=== PATIENT | female | born 1970 | race Caucasian/White ===

== ENCOUNTER 2024-02-19 15:40 | Emergency (ER) | payer MEDICAID, SELFPAY ==
--- NOTE | ~2024-02-19 | XR_ITS ---
EXAMINATION: XR CHEST CLINICAL INFORMATION: Pain COMPARISON: None available. TECHNIQUE: Frontal view of the chest was obtained. FINDINGS: No significant abnormality is noted involving the heart, lungs, mediastinum, bony thorax or soft tissues. Degenerative changes of the thoracic spine. Soft tissue calcification adjacent to the left humeral greater tuberosity. XR/XR chest 1V IMPRESSION: No evidence for acute disease in the chest.
--- NOTE | ~2024-02-19 | CT_ITS ---
EXAMINATION: CT ABDOMEN AND PELVIS WITH CONTRAST CLINICAL INFORMATION: Pain. COMPARISON: None available. TECHNIQUE: Multidetector volumetric images were obtained from the superior aspect of the liver through the pubic symphysis following administration 85 mL of Omnipaque 350 intravenous contrast. Sagittal and coronal reformatted images were obtained on the technologist's workstation. Oral contrast: No This CT examination was performed using dose optimization techniques as appropriate, variously including the following: *Automated exposure control *Adjustment of mA and/or kV according to patient size (this includes techniques or standardized protocols for targeted exams where dose is matched to indication/reason for exam; i.e. extremities or head) *Use of iterative reconstruction technique DLP: 1220 mGy-cm FINDINGS: LUNG BASES: The visualized lung bases are unremarkable. LIVER, GALLBLADDER, AND BILIARY TREE: The liver is normal in size, shape, and attenuation. No focal hepatic lesion or biliary ductal dilatation is present. The gallbladder is unremarkable with no evidence of radiopaque gallstones, gallbladder wall thickening, or obvious pericholecystic inflammatory changes. PANCREAS: Unremarkable. SPLEEN: Unremarkable. ADRENAL GLANDS: Unremarkable. KIDNEYS AND URETERS: The kidneys are normal in size, shape, and attenuation. No hydronephrosis, hydroureter, or calculi seen. No perinephric stranding. BLADDER: Unremarkable. GASTROINTESTINAL TRACT: The small and large bowel are unremarkable. The appendix is unremarkable. ABDOMINAL WALL: No significant hernia is appreciated. LYMPH NODES: Normal. VASCULAR: Unremarkable. PELVIC VISCERA: Unremarkable. OSSEOUS STRUCTURES: No acute osseous abnormality. Multilevel degenerative spondylosis spine. CT/CT abdomen pelvis w IV con IMPRESSION: No acute abnormality CT scan abdomen pelvis. Fleischner guidelines were followed.
[2024-02-19 16:24] VITALS: BP 129/84; BP 98/62; PULSE 100; PULSE 103; RESP 18; TEMP 36.5; O2SAT 100; BMI 30.1
--- NOTE | 2024-02-19 16:37 | ECG_ITS ---
Test Reason : PAIN Blood Pressure : / mmHG Vent. Rate : 103 BPM Atrial Rate : 103 BPM P-R Int : 164 ms QRS Dur : 066 ms QT Int : 326 ms P-R-T Axes : 049 -17 027 degrees QTc Int : 427 ms Sinus tachycardia with occasional , and consecutive Premature ventricular complexes Inferior infarct , age undetermined Abnormal ECG No previous ECGs available Referred By: Rock Iraheta Electronically Signed By:PACO MONTEIRO MD
[2024-02-19] MEDS: 0.9 % Sodium Chloride 1,000 ML 999 ML IV (16:45)
[2024-02-19] MEDS: ondansetron HCL 4 MG/2 ML VIAL IVPUSH (16:46)
[2024-02-19 16:56] LABS: MANUAL DIFF FLAG NO
[2024-02-19 16:59] LABS: Basophils Percent Auto 0.2 % (0-2); Hematocrit 36.3 % (37.0-47.0); Hemoglobin 11.6 g/dl (12.0-16.0); Imm Gran Abs Auto 0.05 X10*3/uL (0.00-0.03); Lymphocytes Absolute Auto 1.7 X10*3/uL (1.2-4.9); Lymphocytes Percent Auto 33.1 % (20-40); Mean Corpuscular Hemoglobin 31.1 pg (27.0-33.0); Mean Corpuscular Volume 97.3 fL (80.0-98.0); Mean Platelet Volume 9.9 fL (9.4-12.3); Monocytes Absolute Auto 0.5 X10*3/uL (0.1-1.2); Monocytes Percent Auto 10.4 % (2-11); Neutrophils Absolute Auto 2.8 x10*3/uL (2.0-8.3); Neutrophils Percent Auto 55.3 % (45-73); Platelet Count 144 X10*3/uL (160-400); Red Blood Count 3.73 X10*6/uL (4.20-5.50); Red Cell Distribution Width 13.6 % (11.0-16.0)
[2024-02-19 17:24] LABS: Alanine Aminotransferase 21 U/L (0-31); Albumin Level 3.3 g/dL (3.5-5.0); Alkaline Phosphatase 94 U/L (39-117); Anion Gap 12 (12-20); Aspartate Amino Transferase 19 U/L (5-31); Bilirubin Total 0.3 mg/dL (0.0-1.0); Blood Urea Nitrogen 26 mg/dL (9-16); Calcium 9.8 mg/dL (8.4-10.2); Carbon Dioxide 27 mmol/L (22-29); Chloride 107 mmol/L (96-108); Creatinine Clr Calc Pharmacy 64.8; Estimated Glomerular Filt Rate 55; Glucose Random 280 mg/dL (60-115); Lipase 34 U/L (8-78); Magnesium 1.7 mg/dL (1.6-2.6); Potassium 4.4 mmol/L (3.3-5.1); Sodium 142 mmol/L (135-145); Total Protein 6.3 g/dL (6.5-8.0)
[2024-02-19 17:37] LABS: Influenza A PCR NEGATIVE (Negative); Influenza B PCR NEGATIVE (Negative); Resp Syncy Virus RNA Qual PCR NEGATIVE (Negative); SARS COV2 PCR INHOUSE NEGATIVE (Negative)
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
[2024-02-19 18:30] LABS: Appearance Urine Clear; Color Urine Yellow; Glucose Urine UA 250 mg/dL (Negative); Leukocyte Esterase Urine Trace (Negative); Nitrite Urine Negative (Negative); UMIC TRIGGER UACC YES; Urine Blood Negative (Negative); Urine Ketones Trace mg/dL (Negative); Urine Protein Negative (Neg-Trace)
[2024-02-19] MEDS: iohexoL 350 MG/ML 100 ML INFUS..BTL 85 ML IV (18:30)
--- NOTE | 2024-02-19 18:31 | PC.NURSE ---
pt alert, oriented to person and situation. Pt stated that they were at [facility] - it appears pt usually goes there. Pt reports abdomen pain and vomiting. Mouth and lips appear very dry and pt looks pale. Fluids infusing - 20g IV left AC.
[2024-02-19 18:32] LABS: Bacteria Urine None Seen (None Seen); Hyaline Casts Urine 0-2 /LPF (0-2); RBC Urine 0-2 /HPF (0-2); Squamous Epithelial Cell Urine 0-2 /HPF (0-2); WBC Urine 0-5 /HPF (0-5)
[2024-02-19 18:45] VITALS: BP 104/52; PULSE 83; RESP 18; TEMP 36.5; O2SAT 100
[2024-02-19 19:02] VITALS: BP 104/52; PULSE 76; RESP 18; TEMP 36.4; O2SAT 100
--- NOTE | 2024-02-19 19:15 | PC.NURSE ---
This personal lines underwriter assumed care of this Pt at 1900. Pt A&O to self and place, denies any pain. Pt requesting PO fluids and sandwich, Pt awaiting Ct scan results at this time. Pt denies any ABD/N/V.
--- NOTE | 2024-02-19 22:07 | PC.NURSE ---
Pt given PO fluids and crackers.
[2024-02-19 22:08] VITALS: BP 131/62; PULSE 85; RESP 18; TEMP 36.5; O2SAT 100
[2024-02-19 22:25] LABS: Glucose, Whole Blood 161 mg/dL (60-115)
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
== END 2024-02-19 23:12 | disposition home or self-care (01) ==
PROVIDERS: Physician Assistant; Emergency Provider Internal Medicine
DX: R10.9 Unspecified abdominal pain (principal); T25.331D Burn of third degree of right toe(s) (nail), subsequent encounter; X08.8XXD Exposure to other specified smoke, fire and flames, subsequent encounter; I10 Essential (primary) hypertension; E11.9 Type 2 diabetes mellitus without complications
CPT/HCPCS: 0241U; 71045; 74177; 80053; 81001; 82947; 83690; 83735; 85025; 93005; 96361; 96374; 99284; J2405; Q9967

== ENCOUNTER → 2024-02-19 16:37 | Outpatient (BNV) | payer MEDICAID, SELFPAY | PROVIDERS: Emergency Provider Internal Medicine; Visit Provider Internal Medicine Cardiovascular Disease | DX: R94.31 Abnormal electrocardiogram [ECG] [EKG] (principal) | CPT/HCPCS: 93010 ==

== ENCOUNTER 2024-02-24 18:16 | Emergency (ER) | payer MEDICAID, SELFPAY ==
[2024-02-24 19:05] VITALS: BP 100/70; PULSE 90; O2SAT 98
[2024-02-24 19:09] VITALS: BP 110/56; PULSE 83; RESP 17; TEMP 36.6; O2SAT 100; BMI 29.3
--- OUTSIDE RECORDS SUMMARY | 2024-02-24 19:45 | XMS_ITS | Continuity of Care Document ---
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 Assessment:??VTE Prophylaxis Ordered ?? Code Status:??full code ?Order Code Status:??Code Status Ordered ? Vital Signs?? Temperature: 98.9 DegF (02/01/24 04:17:00) Temperature Route: Oral (02/01/24 04:17:00) Pulse Rate: 84 bpm (02/01/24 08:51:00) Respiratory Rate: 18 br/min (02/01/24 08:51:00) Systolic Blood Pressure: 136 mm Hg (02/01/24 08:51:00) Diastolic Blood Pressure:??95 mm Hg??High (02/01/24 08:51:00) Blood pressure sites: Arm, right (02/01/24 08:51:00) Mean Arterial Pressure: 109 mm Hg (02/01/24 08:51:00) Pulse Pressure: 41 mm Hg (02/01/24 08:51:00) Oxygen Saturation: 95 % (02/01/24 08:51:00) Mode of Delivery (Oxygen): Room air (02/01/24 08:51:00) Early Warning Score: 5 (02/01/24 11:17:22) ? Intake/Output? 01/27 07:27 01/31 07:00 01/30 07:00 01/29 07:00 01/28 07:00 ?? 01/31 11:44 01/31 11:44 01/31 06:59 01/30 06:59 01/29 06:59 Intake ? 1646 ?180 ?690 ?420 ?120 Output ? 4781 ?0 ? 1651 ?300 ? 1900 Net Total ?-3135 ?180 ? -961 ?120 ?-1780 ? Urine Count ? 12 ?0 ?7 ?2 ?3 ? . Physical Exam Constitutional: Alert, in no distress. Mental Status: Oriented 1-2?? Respiratory: Clear to auscultation. No wheezing, rales or rhonchi. Cardiovascular: S1 S2 regular. No murmurs, rubs or gallops. Gastrointestinal: Abdomen soft, non-tender, non-distended. Normal bowel sounds. Neurologic: Cranial nerves II-XII grossly intact. No focal neurological deficits. Consultants Hand surgery Psychiatry Pending Results Add On Lab Order ordered on 01/27/2024 Add On Lab Order ordered on 01/27/2024 Add On Lab Order ordered on 01/28/2024 Add On Lab Order ordered on 01/28/2024 Blood Gas Venous ordered on 01/27/2024 Follow-Up Appointments Added Follow Up ?Time Frame ?Comments Not on Staff, PCP?1 week?Please follow up with PCP in 1 week.?? Soledad PADILLA, Gage Patel?Only if Needed.?Can follow up with Handsurgery if needed for 5th finger fracture?? Post Discharge Care Discharge ?02/01/24 11:49:00 EDT Discharge Prescriptions ?ePrescribed, 02/01/24 11:49:00 EDT Home Health Face to Face *Denotes mandatory velazquez ?? *I certify that this patient is under my care and that I or an allowed non- physician working with me had a face to face encounter with the patient on this date:??02/01/2024 11:48 ?? *The encounter with the patient was in whole, or in part, for the following medical condition, which is the primary diagnosis(es) for home health care:??Schizoaffective disorder (F25.9) AMS (altered mental status) (R41.82) Closed dislocation of fifth proximal metacarpal joint of left hand (S63.615A) ?? *Select the indications for the discipline/s that are being arranged for this patient. Nursing (select all that apply): [_] None [_] Medication management (reconciliation, teaching)?? [x_] Chronic disease management?? [x_] Wound care and treatment?? [_] Home safety evaluation [_] Administer SQ/IM/IV medications?? [_] Cath care?? [_] Drain care?? [_] Trach or GT care?? Other _ Occupation Therapy (select all that apply): [_] None [_] ADL Management [_] Fall prevention training [_] Energy conservation [_] Cognitive training Other _ Physical Therapy (select all that apply): [_] None [_] Functional mobility training [_] Home exercise program to strengthen [_] Increase ROM?? [_] Falls prevention training [_] Home maintenance program for chronic disease Other _ Speech Therapy (select all that apply): [_] None [_] Swallow evaluation and training [_] Speech and language training [_] Cognitive training to process, organize, and/or recall information Other _ ? *Homebound due to (select all that apply): [x_] Inability to leave home without assistance/supervision [_] Inability to ambulate without assistance [_] Pain [x_] Decreased strength and endurance [_] Unsteady gait [_] Severe SOB and fatigue [_] Impaired transfers [_] Inability to negotiate stairs [_] Limited weight bearing [x_] Mental status change? *Physician Signature: Nir??Anne Edge ?? *By signing this, I certify that I have personally evaluated the patient and agree with the findings and recommendations as documented above. ? F Results Discharge Labs BACTERIOLOGY Urine Culture Results Final report ()?? 01/27/2024 13:14 ? BLOOD COUNT & DIFF WBC 4.0 k/mm3 ()?? 01/31/2024 09:02 RBC 3.94 m/mm3 (Low)?? 01/31/2024 09:02 Hgb 12.2 Gm/dL ()?? 01/31/2024 09:02 Hct 38.6 % ()?? 01/31/2024 09:02 MCV 98.0 femtoliters ()?? 01/31/2024 09:02 MCH 31.0 pg ()?? 01/31/2024 09:02 MCHC 31.6 g/dL (Low)?? 01/31/2024 09:02 Platelet Count 131 k/mm3 (Low)?? 01/31/2024 09:02 RDW-SD 47.1 femtoliters (High)?? 01/31/2024 09:02 MPV 10.4 femtoliters ()?? 01/31/2024 09:02 Nucleated RBC (Automated) 0.0 #/100 WBC'S ()?? 01/31/2024 09:02 Abs. NRBC 0.0 k/mm3 ()?? 01/31/2024 09:02 Abs. Neut 3.1 k/mm3 ()?? 01/27/2024 04:19 Abs. Lymph 1.0 k/mm3 ()?? 01/27/2024 04:19 Abs. Walker 0.6 k/mm3 ()?? 01/27/2024 04:19 Abs. Eo 0.0 k/mm3 ()?? 01/27/2024 04:19 Abs. Baso 0.0 k/mm3 ()?? 01/27/2024 04:19 Neut % 65.1 % ()?? 01/27/2024 04:19 Lymph % 21.3 % ()?? 01/27/2024 04:19 Walker % 13.0 % (High)?? 01/27/2024 04:19 Eos % 0.0 % ()?? 01/27/2024 04:19 Baso % 0.0 % ()?? 01/27/2024 04:19 Imm Gran 0.6 % ()?? 01/27/2024 04:19 Abs. Imm Gran 0.0 k/mm3 ()?? 01/27/2024 04:19 ?? BLOOD GAS Specimen Type - Blood Gas VENOUS ()?? 01/27/2024 21:03 pH, Venous 7.35 ()?? 01/27/2024 21:03 pCO2, Venous 58 mm Hg (High)?? 01/27/2024 21:03 pO2, Venous 43 mm Hg (High)?? 01/27/2024 21:03 Bicarbonate, Estimated(Venous) 31 mmol/L ()?? 01/27/2024 21:03 ? CHEM GENERAL Sodium 139 mmol/L ()?? 01/31/2024 09:02 Potassium 4.6 mmol/L ()?? 01/31/2024 09:02 Chloride 101 mmol/L ()?? 01/31/2024 09:02 Bicarbonate Level 27 mmol/L ()?? 01/31/2024 09:02 Anion Gap 11 ()?? 01/31/2024 09:02 Glucose Level 216 mg/dL (High)?? 01/31/2024 09:02 Glucose, POC 203 mg/dL (High)?? 02/01/2024 11:07 Beta Hydroxybutyrate 0.89 mmol/L (High)?? 01/27/2024 04:19 BUN 20 mg/dL ()?? 01/31/2024 09:02 Creatinine-Blood 0.92 mg/dL ()?? 01/31/2024 09:02 Estimated GFR Creatinine 74 ML/MIN/1.73 M2 ()?? 01/31/2024 09:02 Calcium 9.3 mg/dL ()?? 01/31/2024 09:02 Phosphorus 3.3 mg/dL ()?? 01/31/2024 09:02 Magnesium 1.8 mg/dL ()?? 01/31/2024 09:02 Protein, Total 6.2 Gm/dL ()?? 01/27/2024 23:45 Albumin 3.8 Gm/dL ()?? 01/27/2024 23:45 AG Ratio 1.6 ()?? 01/27/2024 23:45 Alkaline Phosphatase 69 units/L ()?? 01/27/2024 23:45 AST (SGOT) 27 units/L ()?? 01/27/2024 23:45 ALT (SGPT) 20 units/L ()?? 01/27/2024 23:45 Bilirubin, Total 0.4 mg/dL ()?? 01/27/2024 23:45 Bilirubin, Direct <0.2 mg/dL ()?? 01/27/2024 04:19 Bilirubin, Indirect Direct bilirubin is less than the measureable limit. Therefore, indirect mg/dL ()?? 01/27/2024 04:19 ? ENDOCRINE/TUMOR MARKER TSH 3.47 uIU/mL ()?? 01/27/2024 23:45 Blood <1 mIU/mL ()?? 01/27/2024 04:19 ?? MISC. CHEMISTRY Ammonia, Venous 19 ??mole/L ()?? 01/27/2024 23:59 Procalcitonin 0.11 ng/mL ()?? 01/27/2024 23:45 ?? TOXICOLOGY/TDM Ethanol, Serum or Plasma NONE DETECTED mg/dL ()?? 01/27/2024 04:19 Clozapine Level 401 ()?? 01/27/2024 04:19 Norclozapine Level 91 ()?? 01/27/2024 04:19 Clozapine + Norclozapine Level 492 ()?? 01/27/2024 04:19 Salicylate Level <0.3 mg/dL (Low)?? 01/27/2024 23:45 Valproic Level 78.1 mg/L ()?? 01/27/2024 04:19 Barbiturate Screen, Urine NONE DETECTED ()?? 01/27/2024 06:42 Cannabinoid Screen, Urine NONE DETECTED ()?? 01/27/2024 06:42 Cocaine Metabolite Screen, Urine NONE DETECTED ()?? 01/27/2024 06:42 Benzodiazepine Screen, Urine NONE DETECTED ()?? 01/27/2024 06:42 Amphetamine Screen, Urine NONE DETECTED ()?? 01/27/2024 06:42 Opiate Screen, Urine NONE DETECTED ()?? 01/27/2024 06:42 Acetaminophen Level <5 mg/L (Low)?? 01/27/2024 23:45 ? UA/URINALYSIS Appear/Color, Urine LIGHT YELLOW ()?? 01/27/2024 13:14 Specific [place], Urine 1.007 ()?? 01/27/2024 13:14 pH, Urine 6.5 ()?? 01/27/2024 13:14 Albumin, Urine NEGATIVE ()?? 01/27/2024 13:14 Glucose, Urine 3+ (Abnormal)?? 01/27/2024 13:14 Ketones, Urine NEGATIVE ()?? 01/27/2024 13:14 Bilirubin, Urine NEGATIVE ()?? 01/27/2024 13:14 Hemoglobin, Urine NEGATIVE ()?? 01/27/2024 13:14 Nitrite, Urine NEGATIVE ()?? 01/27/2024 13:14 Leukocyte, Urine 1+ (Abnormal)?? 01/27/2024 13:14 Urobilinogen NORMAL mg/dL ()?? 01/27/2024 13:14 WBC's, Urine 9 /HPF (High)?? 01/27/2024 13:14 RBC's, Urine 1 /HPF ()?? 01/27/2024 13:14 Bacteria SLIGHT HPF (Abnormal)?? 01/27/2024 13:14 Squamous Epith 2 /HPF ()?? 01/27/2024 13:14 Hold Urine Culture Testing available 48 hours from time of collection. ()?? 01/27/2024 13:14 ?? URINE OTHER Est Creatinine Clearance 63.80 mL/min ()?? 01/31/2024 10:29 Urine Culture Specimen Source URINE ()?? 01/27/2024 13:14 Urine Culture Isolate 1 Comment ()?? 01/27/2024 13:14 ? VIROLOGY COVID-19 by RT-PCR NEGATIVE ()?? 01/27/2024 12:40 ? Blood Glucose Trend Glucose, POC:??203 mg/dL??High (02/01/24 11:07:00) Glucose, POC:??145 mg/dL??High (02/01/24 07:33:00) Glucose, POC:??237 mg/dL??High (01/31/24 20:27:00) Glucose, POC:??201 mg/dL??High (01/31/24 15:15:00) ? Microbiology ?? COVID-19 (Novel Coronavirus), Rapid PCR?? Completed?? Source: Nasal Body Site: Nose Collected Dt/Tm: 01/27/2024 12:36 Last Updated Dt/Tm: 01/27/2024 13:33 ? 40??minutes spent on discharge * Shakira Barclay RN: PERFORM, SIGN, VERIFY Event Display: Case Management Discharge Plan Authored Date: Patient: JADYN BOYKIN Age: 53 years Sex: Female : 1970 Associated Diagnoses: None Author: Shakira Barclay RN Discharge Plan Case Management Discharge Plan : Case Management Discharge Plan Data 02/01/2024 12:00 EDT Discharge Level of Care at Discharge Homehealth/VNA Discharge VNA/Hospice/Home Care [facility] [phone] Discharge Transportation Arranged shelter staff Name of Agency #1 [facility] Reel Operator #1 Intake Service Categories #1 Physical Therapy, [facility] Comments #1 You are being discharged and returning to your shelter with visiting nursingfrom [facility]. If you do not hear from them 24 hours after discharge, please call them. * Monse Santana RN: PERFORM Event Display: Patient Education/Instruction Authored Date: [id number] Inpatient Adult Discharge Instructions. [address] [address] Name: JADYN BOYKIN : 1970?? Visit: 01/28/2024 07:27?? Current Date: 02/01/2024 13:12 ?? Account: [id number]?? Inpatient Adult Discharge Instructions We would like to thank you for allowing us to assist you with your healthcare needs. The following includes patient education materials and information regarding your injury/illness. Our entire staffstrives to provide an excellent experience for our patients and their families. PLEASE ENSURE YOU FOLLOW-UP PER THE INSTRUCTIONS BELOW! ?? YOUR OPINION IS IMPORTANT TO US! Please complete the survey you may receive by mail or email. Your feedback will be used to make improvements to the healthcare experiences of our patients and their families. Surveys are administered by [employer] ?? If further treatment with your primary care physician or another doctor is recommended, it is important for you to keep the appointment. Call your primary care physician or return to the Emergency Department immediately if your condition worsens, fails to improve, or new symptoms develop. If you need to find a doctor, you can call [facility] [employer] Link for a referral at [phone] or toll free at [phone] or log in to [email or web address].. ?? [facility], in keeping with [facility] guidance, no longer requires face masks for staff, patientsor visitors in most situations. Similiar to time spent indoors at other locations, there is the chance that you were exposed to repiratory viruses during your time with us (such as flu or COVID-19). If you develop symptoms concerning for a viral respiratory infection, please seek testing (and treatment if indicated) from your medical provider or home test kit. ?? You can view and manage your care through the patient portal or by using a health care makayla of your choosing. [employer] is a website that allows you to securely view your medical information including your hospital discharge summary, office visit summaries, medications and follow-up visits. You can also request appointments, renew medications, and request access to your medical information using a health care makayla of your choosing, or just ask a question. You can enroll at [email or web address] or register during your next office visit. You have been discharged from [facility], Patient Care Unit: W3??. If you have any questions regarding these instructions, including results of studies pending, afteryou leave, please call us and we will be happy to assist you 09/04. [facility] Your Care Team Attending Physician Kely PADILLA, Meryl Jaffe?? Consulting Providers Meryl Edge MD?? Discharging Providers Meryl Edge MD Reason for Your Visit Pt was knocking on peoples doors in apt building, police were called. ??Pt reports hallucinations which she has a h/o. ??Pt sees angels everywhere. ??Pt has h/o psychoaffective and personality disorders?? Your Diagnosis AMS (altered mental status) Closed dislocation of fifth proximal metacarpal joint of left hand Psychiatric problem Tests Performed Below is a partial list of the tests performed during your hospitalization. You may have had other tests and procedures not included in this list. Please discuss all test results with your provider. Acetaminophen Level Ammonia Venous Amphetamine Urine Screen Aspirin Level Barbiturate Urine Screen Basic Metabolic Panel Benzodiazepine Urine Screen Beta Hydroxybutyrate Cannabinoid Urine Screen CBC CBC w/ Differential Clozapine Level Cocaine Urine Screen Comprehensive Metabolic Panel COVID-19 (Novel Coronavirus), Rapid PCR Ethanol Level GLUCOSE POC HEPATIC FUNCTION PANEL HOLD URINE CULTURE Magnesium Level Opiate Screen Urine pH Venous Phosphorus Level Serum Quantitative PROCALCITONIN, SERUM TSH TSH with T4 Reflex (Adults Only) Urinalysis w/hold for Urine Culture Urine Culture Result Urine Culture, Routine VALPROIC CT Head/Brain W/O Contrast Hand Min 3 Views Left XR Chest 2 Views Frontal and Lat XR Hand Min 3 Views Left Add On Lab Order?? Blood Gas Venous (VBG)?? Primary Care Provider Not on Staff, PCP?? Advance Directive Health Care Proxy on File No Patient refuses to discuss Discharge Vitals Temperature: 98.9 DegF Height: 166 cm Pulse Rate: 84 bpm Weight: 89 kg Respiratory Rate: 18 br/min Body Mass Index:??32.3 kg/m2??Critical Systolic Blood Pressure: 136 mm Hg Body surface area: 2.03 Diastolic Blood Pressure:??95 mm Hg??High ?? Oxygen Saturation: 95 % ?? Studies Pending All studies ordered during this hospital stay have been completed unless listed below. Please discuss all pending results with your provider listed above in these instructions. ?? Add On Lab Order?? Blood Gas Venous (VBG)?? What to do next Instructions From Your Doctor ?? Orders? 02/01/24 11:49:00 EDT?? Prescriptions??, ??02/01/24 11:49:00 EDT?? Scheduled Follow-Up Appointments Sunday 11:00 AM EDT ?? With: Kyle FRANZ, Carolina Jacobs Where: [facility] [address] [place] [address]- Status: Pending You Need to Schedule the Following Appointments Follow Up with??Not on Staff, PCP When:??Within 1 week Why: Please follow up with PCP in 1 week.?? Follow Up with??Soledad PADILLA, Gage Patel When:??Only if needed Why: Can follow up with Hand surgery if needed for 5th finger fracture?? Where: [address] [place] [address], [address] [facility] [place] [address]- Discharge Medications JADYN BOYKIN :1970 Visit Date:01/28/2024 Medications: Please continue your medications until treatment is completed or stopped by your provider. Medications not listed below should be discontinued. Discuss any questions related to medications with your provider. What How Much When Instructions Next Dose Changed HydrOXYzine (hydrOXYzine pamoate 25 mg oral capsule) See instructions 3 times as needed for anxiety ?? take as needed Unchanged Acetaminophen (acetaminophen 325 mg oral tablet) 650 Milligram Oral Every 6 hours as needed for Pain , Mild / Headache ?? take as needed Unchanged Al Hydroxide/ Mg Hydroxide/ Simethicone (Maalox Plus Liquid) 30 Milliliter Oral Every 4 hours as needed for Dyspepsia take as needed Unchanged Atorvastatin (atorvastatin 20 mg oral tablet) 1 tab(s) Oral Daily at Bedtime Duration: 30 Days 9pm tonight Unchanged Benztropine (benztropine 0.5 mg oral tablet) 1 tab(s) Oral Twice a day Duration: 30 Days 9pm tonight Unchanged Cetirizine (cetirizine 5 mg oral tablet) 1 tab(s) Oral Daily at Bedtime as needed for Other allergy symptoms ?? as needed Unchanged Cholecalciferol (cholecalciferol 1000 intl units oral tablet) 1 tab(s) Oral Daily 9am tomorrow Unchanged Clozapine (clozapine 100 mg oral tablet) See instructions 250 (2.5 tablets) mg By Mouth Daily at bedtime 30 days ?? 9pm tonight Unchanged Divalproex Sodium (divalproex sodium 500 mg oral enteric coated tablet) 3 tab(s) Oral Daily at Bedtime Duration: 30 Days 9pm tonight Unchanged Docusate (docusate sodium 100 mg oral capsule) 1 capsule Oral Twice a day as needed for Constipation Duration: 30 Days as needed Unchanged Fluoxetine (FLUoxetine 20 mg oral capsule) 1 capsule Oral Daily Duration: 30 Days 9??am tomorrow Unchanged Melatonin (melatonin 3 mg oral tablet) 6 Milligram Oral Daily at Bedtime as needed for Insomnia as needed Unchanged Metformin (metFORMIN 500 mg oral tablet) 1 tab(s) Oral Two times a day with meals Duration: 30 Days 5pm tonight Unchanged Polyethylene Glycol 3350 (MiraLax Powder) 17 gram Oral Daily as needed for Constipation as needed Unchanged Trazodone (traZODone 50 mg oral tablet) 1 tab(s) Oral Daily at Bedtime as needed for Sleep as needed Prescription Given During Visit No new medications prescribed at time of discharge.?? Laboratory Results Below is a partial list of the most recent Laboratory test results done prior to this discharge. You may have had other tests and procedures not included in this list. Please discuss all test resultswith your provider. Est Creatinine Clearance - 63.80 mL/min (01/31/2024) Acetaminophen Level (01/27/2024) ? ?Acetaminophen Level - <5 mg/L Ammonia Venous (01/27/2024) ???Ammonia, Venous - 19 ??mole/L Amphetamine Urine Screen (01/27/2024) ???Amphetamine Screen, Urine - NONE DETECTED Aspirin Level (01/27/2024) ? ?Salicylate Level - <0.3 mg/dL Barbiturate Urine Screen (01/27/2024) ???Barbiturate Screen, Urine - NONE DETECTED Basic Metabolic Panel (01/31/2024) ???Sodium - 139 mmol/L???Potassium - 4.6 mmol/L???Chloride - 101 mmol/L???Bicarbonate Level - 27 mmol/L???Anion Gap - 11???Glucose Level - 216 mg/dL???BUN - 20 mg/dL???Creatinine-Blood - 0.92 mg/dL???Estimated GFR Creatinine - 74 ML/MIN/1.73 M2???Calcium - 9.3 mg/dL Benzodiazepine Urine Screen (01/27/2024) ???Benzodiazepine Screen, Urine - NONE DETECTED Beta Hydroxybutyrate (01/27/2024) ???Beta Hydroxybutyrate - 0.89 mmol/L Cannabinoid Urine Screen (01/27/2024) ???Cannabinoid Screen, Urine - NONE DETECTED CBC (01/31/2024) ???WBC - 4.0 k/mm3???RBC - 3.94 m/mm3???Hgb - 12.2 Gm/dL???Hct - 38.6 %???MCV - 98.0 femtoliters???MCH - 31.0 pg???MCHC - 31.6 g/dL???Platelet Count - 131 k/mm3???RDW-SD - 47.1 femtoliters???MPV - 10.4 femtoliters???Nucleated RBC (Automated) - 0.0 #/100 WBC'S???Abs. NRBC - 0.0 k/mm3 CBC w/ Differential (01/27/2024) ???WBC - 4.8 k/mm3???RBC - 3.65 m/mm3???Hgb - 11.4 Gm/dL???Hct - 35.1 %???MCV - 96.2 femtoliters???MCH - 31.2 pg???MCHC - 32.5 g/dL???Platelet Count - 124 k/mm3???RDW-SD - 45.9 femtoliters???MPV - 10.5 femtoliters???Nucleated RBC (Automated) - 0.0 #/100 WBC'S???Abs. NRBC - 0.0 k/mm3???Abs. Neut - 3.1 k/mm3???Abs. Lymph - 1.0 k/mm3???Abs. Walker - 0.6 k/mm3???Abs. Eo - 0.0 k/mm3???Abs. Baso - 0.0 k/mm3???Neut % - 65.1 %???Lymph % - 21.3 %???Walker % - 13.0 %???Eos % - 0.0 %???Baso % - 0.0 %???Imm Gran - 0.6 %???Abs. Imm Gran - 0.0 k/mm3 Clozapine Level (01/27/2024) ???Clozapine Level - 401???Norclozapine Level - 91???Clozapine + Norclozapine Level - 492 Cocaine Urine Screen (01/27/2024) ???Cocaine Metabolite Screen, Urine - NONE DETECTED Comprehensive Metabolic Panel (01/27/2024) ???Sodium - 139 mmol/L???Potassium - 4.7 mmol/L???Chloride - 101 mmol/L???Bicarbonate Level - 26 mmol/L???Anion Gap - 12???Glucose Level - 247 mg/dL???BUN - 21 mg/dL???Creatinine-Blood - 1.06 mg/dL???Estimated GFR Creatinine - 62 ML/MIN/1.73 M2???Calcium - 9.5 mg/dL???Protein, Total - 6.2 Gm/dL???Albumin - 3.8 Gm/dL???AG Ratio - 1.6???Alkaline Phosphatase - 69 units/L???AST (SGOT) - 27 units/L???ALT (SGPT) - 20 units/L???Bilirubin, Total - 0.4 mg/dL COVID-19 (Novel Coronavirus), Rapid PCR (01/27/2024) ???COVID-19 by RT-PCR - NEGATIVE Ethanol Level (01/27/2024) ???Ethanol, Serum or Plasma - NONE DETECTED GLUCOSE POC (02/01/2024) ???Glucose, POC - 203 mg/dL HEPATIC FUNCTION PANEL (01/27/2024) ???Protein, Total - 5.5 Gm/dL???Albumin - 3.5 Gm/dL???Alkaline Phosphatase - 62 units/L???AST (SGOT) - 23 units/L? ?ALT (SGPT) - 17 units/L? ?Bilirubin, Total - 0.4 mg/dL? ?Bilirubin, Direct - <0.2 mg/dL???Bilirubin, Indirect - Direct bilirubin is less than the measureable limit. Therefore, indirect HOLD URINE CULTURE (01/27/2024) ???Hold Urine Culture - Testing available 48 hours from time of collection. Magnesium Level (01/31/2024) ???Magnesium - 1.8 mg/dL Opiate Screen Urine (01/27/2024) ???Opiate Screen, Urine - NONE DETECTED pH Venous (01/27/2024) ???pH, Venous - 7.41 Phosphorus Level (01/31/2024) ???Phosphorus - 3.3 mg/dL Serum Quantitative (01/27/2024) ? ?Blood - <1 mIU/mL PROCALCITONIN, SERUM (01/27/2024) ???Procalcitonin - 0.11 ng/mL TSH (01/27/2024) ???TSH - 3.47 uIU/mL TSH with T4 Reflex (Adults Only) (01/27/2024) ???TSH - 2.31 uIU/mL Urinalysis w/hold for Urine Culture (01/27/2024) ???Appear/Color, Urine - LIGHT YELLOW???Specific [place], Urine - 1.007???pH, Urine - 6.5???Albumin, Urine - NEGATIVE???Glucose, Urine - 3+???Ketones, Urine - NEGATIVE???Bilirubin, Urine - NEGATIVE???Hemoglobin, Urine - NEGATIVE???Nitrite, Urine - NEGATIVE???Leukocyte, Urine - 1+???Urobilinogen - NO RMAL???WBC's, Urine - 9 /HPF???RBC's, Urine - 1 /HPF???Bacteria - SLIGHT???Squamous Epith - 2 /HPF???Hold Urine Culture - Testing available 48 hours from time of collection. Urine Culture Result (01/27/2024) ???Urine Culture Isolate 1 - Comment Urine Culture, Routine (01/27/2024) ???Urine Culture Results - Final report???Urine Culture Specimen Source - URINE VALPROIC (01/27/2024) ???Valproic Level - 78.1 mg/L Allergies (NKA means No Known Allergies) Apples Bactrim DS??(acute renal failure) Benadryl Grapes codeine haloperidol ibuprofen lithium penicillin Problems Active Problems??(16) Amenorrhea?? Bipolar disorder?? Body mass index 30+ - obesity?? Chronic renal impairment?? Constipation?? Diabetes insipidus?? HTN - Hypertension?? Hyperlipidemia?? Nocturia?? Obese class I?? Primary hypertension?? Rash?? Schizoaffective disorder?? Type II diabetes mellitus?? Urge incontinence?? UTI (urinary tract infection)?? Education Materials Below is the list of Educational Leaflet Providered with your Discharge Instructions. [employer] Patient Education - Altered Level of Consciousness?? [employer] Patient Education - Confusion?? Valuables and Belongings I fully understand and agree that [facility] accepts no responsibility for all my personal property including clothing, toilet articles, radios, jewelry, dentures, hearing aids, rings, money, or any other property that is in my possession or is brought to me after admission. I understand certain valuables may be placed in a hospital safe for a short period of time. I understand that the hospital is not liable for loss or damage due to accident, fire, or other natural occurrence while said property is in the safe. I accept full responsibility for any personal property that I keep with me, and will not hold the hospital responsible in case of loss or disappearance. I acknowledge that i have been encouraged to send valuables and belongings home. ?? Review of Valuable and Belonging List: With patient, With witness Disposition of Belongings: Valuables Locked Date for Pt to Sign Valuables/Belongings: 01/28/24 08:58:00 ?? Other Discharge Information ? Case Management Discharge Plan?? Discharge Plan?? Discharge Agency Information?? Discharge Level of Care at Discharge: Homehealth/VNA Name of Agency [facility]1: [facility] Transportation Arranged: shelter staff Agency Reel Operator #1: Intake Discharge VNA/Hospice/Home Care: [facility] [phone] Service Categories #1: Physical Therapy, [facility] ?? Service Comments #1: You are being discharged and returning to your shelter with visiting nursing from [facility]. If you do not hear from them 24 hours after discharge, please call them. ?? Pulmonary Rehab Status?? Pulmonary Rehab Discharge Status?? Respiratory Rate: 18 br/min ? Common Emergency Awareness Tips IS IT A STROKE? Act FAST and Check for these signs: FACE Does the face look uneven? ARM Does one arm drift down? SPEECH Does their speech sound strange? TIME Call at any sign of stroke ?? Heart Attack Signs Chest discomfort: Most heart attacks involve discomfort in the center of the chest and lasts more than a few minutes, or goes away and comes back. It can feel like uncomfortable pressure, squeezing, fullness or pain. Discomfort in upper body: Symptoms can include pain or discomfort in one or both arms, back, neck, jaw or stomach. Shortness of breath: With or without discomfort. Other signs: Breaking out in a cold sweat, nausea, or lightheaded. Remember, MINUTES DO MATTER. If you experience any of these heart attack warning signs, call to get immediate medical attention! ?? Smoking can increase your chances of developing chronic health problems and can cause harmful effects to other family members in your house. If you smoke, you are strongly encouraged to quit. Please call [facility] [employer] [facility] at [phone] or [phone] ([phone]) or log in to [email or web address] for referrals to smoking cessation programs. ?? 286 Suicide & Crisis Lifeline is available 09/04 if you or someone you know needs to find a reason to keep living. By calling 137 you'll be connected to a skilled, trained counselor at a crisis center in your area. INPATIENT DISCHARGE INSTRUCTIONS SIGNATURE PAGE JADYN BOYKIN Location:[facility] Registration Date and Time:01/28/2024 07:27 EDT Primary Care Physician: Not on Staff, PCP Attending Physician: Kely PADILLA, Meryl Jaffe, I JADYN BOYKIN, have received the above patient education materials/instructions and have verbalized understanding. If ambulance or transport services are being used I further acknowledge being given a choice of service. ?? If you need to contact me, please call me at this number: . 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 [id number] Altered Level of Consciousness Level of consciousness (LOC) is a measure of a person???s ability to interact with other people andto react to what is around them. A person with an altered level of consciousness may not respond totouch or voices. They??may look vacant or blank. They may not make eye contact with others. The person??may be limp and may not move for a long time. Or they may??show little interest in moving. They may also be confused. There are many causes of altered LOC. They include low blood sugar, infection, medicines, head injuries, seizures,??stroke, and being intoxicated.. Altered LOC is a medical emergency. The healthcare provider will do tests to help find the cause. These may include blood tests and imaging tests. The person is treated so breathing and heart rate are stable. An IV (intravenous) line may be put into a vein in the arm or hand to give medicines. Oncethe cause of altered LOC is found, the goal is to treat the cause. In almost all cases, the person will be admitted to the hospital for diagnostic testing and??observation. Some less common conditions, such as locked-in syndrome and akinetic mutism, seem like a??coma.??But the person??is perfectly awake. Home care When your loved one is released from the hospital, you will be given guidelines for caring for them. In general: ??? Follow the healthcare provider's instructions for giving any prescribed medicines to your child. ??? Stay with your loved one or have another responsible adult look after them. Watchcarefully for any return of symptoms or changes in behavior. ??? If the person has diabetes, make sure that any approved medicines are given on time and as prescribed. ?? Follow-up care Follow up with your??healthcare provider, or our staff as advised. ?? When to seek medical advice Call your??healthcare provider right away if new symptoms appear. ?? Call 911 Call 911 or get medical care right away??if symptoms of altered LOC return. ?? Last Reviewed Date: 2021 ?? [id number] [employer]. All rights reserved. This information is not intended as a substitute for professional medical care. Always follow your healthcare professional's instructions. ?? * Monse Santana RN: PERFORM Event Display: Patient Education Leaflets Authored Date: [id number] Confusion ?? [id number] Confusion Confusion (delirium) is a change in a person???s ability to think clearly. There may be trouble recognizing familiar people and places or knowing what day it is. Memory, judgment, and decision-makingmay also be affected. In severe cases, the person may have limited or no response to being spoken to. Confusion usually appears over a few days and can vary throughout the day. It can last weeks to months or longer, depending on the cause. Confusion is usually a sign of an underlying problem. It may occur suddenly. Or it may develop gradually over time. Causes of confusion include brain injury, stroke, heart disease, low blood sugar indiabetes, medicines, alcohol, withdrawal from certain medicines or illegal drugs, and infection. Confusion can also be a sign of low blood oxygen levels, dementia, or a mental illness. In older adults, an infection such as a urinary tract infection or pneumonia is a common cause of confusion. Treatment will depend on the cause of the problem. If infection is found, your loved one may need antibiotics. If the issue is a medicine, stopping the medicine may help. Thiamine supplement may helpwith very little risk of side effects. Benzodiazepines may help people who are undergoing alcohol withdrawal. If confusion is chronic, your loved one may need medicines to treat forms of dementia. Home care ??? Be sure someone is with the confused person at all times. They should not be left alone or unsupervised. ??? Tell the healthcare provider about all medicines that the person takes. These include prescription, [id number], herbs, and supplements. ??? Dehydration can increase confus ion. Ask the healthcare provider how much fluid the person should be drinking. Offer liquids and ensure that they are taken. ??? Keep all medicines in a secure place under the caregiver???s control. To prevent overdose, a confused person should take medicines only under the supervision of a caregiver. ??? To help a person with confusion: o Establish a daily routine. Change can be a source of stress for someone with confusion. Make and keep a time schedule for common tasks such as bathing, dressing, taking medicines, meals, going for walks, shopping, naps and bed time. Make sure that the person has glasses and hearing aids if needed. o Don't use physical restraints. o Speak slowly and clearly with a gentle tone of voice. Use short simple words and sentences. Ask one question at a time. Don't interrupt, criticize, or argue. Be calm and supportive. Use friendly facial expressions. Use pointing and touching to help communicate. If there has been loss of long-term memory, don't ask questions about past events. This would only cause frustration for the person. o Use lists, signs, family ph otos, clocks and calendars as memory aids. Label cabinets and drawers. Try to distract, not confront, the person. When they become frustrated or upset, redirect attention to eating or some other activity of interest. o If this proves to be due to a permanent condition, talk to the healthcare provider or a corporation lawyer about getting a Power of Geriatric Social Worker for healthcare and for financial decisions. It's best to do this while the person can still sign legal documents and make decisions. Otherwise, a courtorder will be required. ?? Follow-up care Follow up with the person's healthcare provider or as advised for further testing or changes in medical care. ?? When to seek medical advice Call the healthcare provider for any of the following: ??? Frequent falling ??? Refusal to eat or drink ??? Increased drowsiness ??? Nausea or vomiting ??? Unexplained fever over 100.4?? F (38.0?? C), or as directed by the healthcare provider ?? Call 911 Call 911 right away if any of the following occur: ??? Violent behavior or behavior too hard to manage at home ??? New hallucinations or delusions ??? Severe headache, numbness or weakness of the face, arm, or leg ??? Slurred speech or trouble speaking, walking, or seeing ??? Fainting spell, dizziness, or seizure ?? Last Reviewed Date: 2021 ?? [id number] [employer]. All rights reserved. This information is not intended as a substitute for professional medical care. Always follow your healthcare professional's instructions. ?? Patient Care team information Care Team Personnel Name: Alexandra Wihpple RN Position: [facility] RN Member Role: Primary Care Nurse Name: Lawrence Cnao RN Position: [facility] RN Member Role: Primary Care Nurse Name: Nayana Bradshaw RN Position: [facility] RN Member Role: Primary Care Nurse Name: Ana María Espino RN Position: S RN Member Role: Primary Care Nurse Name: Raji Somers RN Position: [facility] RN Member Role: Primary Care Nurse Name: Ulisses Barboza Position: S RN Member Role: Primary Care Nurse Name: Dahiana Thrasher RN Position: [facility] JAMAL RN W/OE and Tasks Member Role: Primary Care Nurse Name: Shira Ewing RN Position: [facility] RN Member Role: Primary Care Nurse Name: Rick Chi RN Position: [facility] RN Member Role: Primary Care Nurse Name: Maggi Fagan RN Position: [facility] ED RN W/OE and Tasks Member Role: Primary Care Nurse Name: Marlo Davies RN Position: [facility] RN Member Role: Primary Care Nurse Name: Moni Rodriguez Position: [facility] RN Member Role: Primary Care Nurse Name: Not on Staff, PCP Position: [facility] Physician (General Medicine) Member Role: PCP Name: Lawson Rivers RN Position: [facility] RN Supv Member Role: Primary Care Nurse Name: Mark Mccullough RN Position: [facility] RN Member Role: Primary Care Nurse Name: Ana María Ugarte RN Position: [facility] RN Member Role: Primary Care Nurse Name: Nayana Reyes RN Position: [facility] RN Member Role: Primary Care Nurse Name: Capo Sales RN Position: [facility] RN Member Role: Primary Care Nurse Name: Yenni Medellin RN Position: [facility] RN Member Role: Primary Care Nurse Name: Anna Cespedes RN Position: [facility] RN Member Role: Primary Care Nurse Name: Gabino Cespedes RN Position: [facility] RN Member Role: Primary Care Nurse Care Team Related Persons Name: MARK CLAY Address: home [address] [place] [address] Name: [facility], LORI Name: DORIS KNUTSON Address: home [address] [place] [address]
--- OUTSIDE RECORDS SUMMARY | 2024-02-24 19:45 | XMS_ITS | Continuity of Care Document ---
[facility] Address [address] [place] [address]- Care Team Providers Care Idea Man Name Role Phone Sidney Jackson MD Primary Care Physician Encounter [facility] [place] Date(s): 04/26/23 - 05/26/[facility] [address] [place] [address]- Allergies, Adverse Reactions, Alerts Substance Reaction Severity Status ibuprofen Active haloperidol Active lithium Active penicillin Active Benadryl Active Bactrim DS 1 acute renal failure Active Apples Active Grapes Active 1had episodes of acute renal failure during admission to [facility] -- resolved both times off Bactrim and so have added this to list of meds to avoid. Immunizations Given and Recorded Vaccine Date Status Refusal Reason influenza virus vaccine, inactivated 05/24/22 [facility] [...] SANOFI PASTEUR 4Admin Note: SANOFI PASTEUR Medications benztropine 1 mg oral tablet 1 mg, 1, tablet, By Mouth, Daily at bedtime, # 30 tablet, Refills 0, Tot. Refills 0, Maintenance, 02/07/23 12:50:00 EDT, Route to Pharmacy Electronically, [facility] Partialfill upon patient request if the prescription is fo... Start Date: 02/07/23 Status: Ordered clozapine 100 mg oral tablet 3 tablet = 300 mg, By Mouth, Daily at bedtime, # 90 tablet, 1 Refills, Maintenance, 02/07/23 12:50:00 EDT, [facility], Partial fill upon patient request if the prescription is for a schedule II opioid drug., 165, cm, 01/31/23... Start Date: 02/07/23 Status: Ordered divalproex sodium 500 mg oral tablet, extended release 3 tablet = 1,500 mg, By Mouth, Daily at bedtime, # 90 tablet, 1 Refills, Maintenance, 02/07/23 12:51:00 EDT, ER Tablet, [facility], Partial fill upon patient request if the prescription is for a schedule II opioid drug., 165,... Start Date: 02/07/23 Status: Ordered docusate sodium 100 mg oral tablet = 100 mg, By Mouth, 2 times a day, # 60 tablet, 0 Refills, Maintenance, 02/07/23 12:51:00 EDT, Tablet, [facility], Partial fill upon patient request if the prescription is for a schedule II opioid drug., 165, cm, 01/31/23 0:39... Start Date: 02/07/23 Status: Ordered fluPHENAZine decanoate 25 mg/mL injectable solution = 25 mg, Intramuscular, Every 21 days, Last given 01/26/23 due 02/16/23, # 1 kit, 1 Refills, Maintenance, 02/07/23 12:51:00 EDT, [facility], Partial fill upon patient request ifthe prescription is for a schedule II opioid drug.,... Start Date: 02/07/23 Status: Ordered Freestyle Lancets See Instructions, # 200 each, Refills 5, Tot. Refills 5, Maintenance, use as directed for Type 2 Diabetes Mellitus, 02/07/23 13:00:00 EDT, Supply, 165, cm, 01/31/23 0:39:00 EDT, Height, 78, kg, 01/31/23 0:39:00 EDT, Dry Weight Start Date: 02/07/23 Stop Date: 08/06/23 Status: Ordered Freestyle Lite Test Strips See Instructions, # 200 each, Tot. Refills 5, Maintenance, use as directed for Type 2 Diabetes Mellitus, 02/07/23 13:00:00 EDT, Supply, 165, cm, 01/31/23 0:39:00 EDT, Height, 78, kg, 01/31/23 0:39:00EDT, Dry Weight Start Date: 02/07/23 Stop Date: 03/09/23 Status: Ordered glycopyrrolate 1 mg oral tablet 1 mg, By Mouth, Daily at bedtime, Refills 0, Maintenance, 03/22/23 8:47:00 EDT, Partial fill upon patient request if the prescription is for a schedule II opioid drug. Start Date: 03/22/23 Status: Ordered insulin glargine 100 units/mL subcutaneous solution = 24 units, Subcutaneous Injection, Daily at bedtime, # 10 mL, 0 Refills, Maintenance, 05/17/23 22:06:00 EDT, Solution, Partial fill upon patient request if the prescription is for a schedule II opioid drug. Start Date: 05/17/23 Status: Ordered metFORMIN 500 mg oral tablet 1 each = 500 mg, By Mouth, 2 times a day, # 60 tablet, 1 Refills, Maintenance, 02/07/23 12:51:00 EDT, Tablet, [facility] Partial fill upon patient request if the prescription is for a schedule II opioid drug., 165, cm, ... Start Date: 02/07/23 Status: Ordered trospium 60 mg oral capsule, extended release 1 capsule = 60 mg, By Mouth, Daily in AM, # 30 capsule, 11 Refills, Maintenance, 04/12/23 11:23:00 EDT, CR Capsule, [facility] Partial fill upon patient request if the prescription is for a schedule II opioid drug., 165, cm,... Start Date: 04/12/23 Status: Ordered Problem List Condition Confirmation Course [...] Active UTI (urinary tract infection) Confirmed Active Social History Social History Type Response Smoking Status Former smoker, quit more than 30 days ago entered on: 09/27/20 Sex Patient Care team information Care Team Personnel Name: Lawrence Cano RN Position: [facility] RN Member Role: Primary Care Nurse Name: Nayana Bradshaw RN Position: [facility] RN Member Role: Primary Care Nurse Name: Ana María Espino RN Position: [facility] RN Member Role: Primary Care Nurse Name: Raji Somers RN Position: [facility] RN Member Role: Primary Care Nurse Name: Ulisses Barboza Position: S RN Member Role: Primary Care Nurse Name: Dahiana Thrasher RN Position: [facility] ED RN W/OE and Tasks Member Role: Primary Care Nurse Name: Rick Chi RN Position: [facility] ED RN W/OE and Tasks Member Role: Primary Care Nurse Name: Maggi Fagan RN Position: [facility] ED RN W/OE and Tasks Member Role: Primary Care Nurse Name: Lawson Rivers RN Position: [facility] RN Supv Member Role: Primary Care Nurse Name: Mark Mccullough RN Position: [facility] RN Member Role: Primary Care Nurse Name: Sidney Jackson MD Position: [facility] Physician - Primary Care Member Role: PCP Address: Address: [address] [place] [address], [address] [place] [address]- Name: Nayana Reyes RN Position: [facility] RN Member Role: Primary Care Nurse Name: Anna Cespedes RN Position: S RN Member Role: Primary Care Nurse Name: Gabino Cespedes RN Position: [facility] RN Member Role: Primary Care Nurse Care Team Related Persons Name: BUZZ CASTELLANOS Address: [address] [place] [address] Name: MARK CLAY Address: home [address] [place] [id number] Name: DORIS KNUTSON Address: home [address] [place] [address]
--- OUTSIDE RECORDS SUMMARY | 2024-02-24 19:45 | XMS_ITS | Continuity of Care Document ---
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 Name Role Phone Sidney Jackson MD Primary Care Physician Encounter [place] Date(s): 04/12/23 - 05/12/23 [facility] Franky Jim[facility] [address], 4th [place] [address]- Attending Physician: Luanne Candelario Admitting Physician: Luanne Candelario Referring Physician: AdmLuanne lobo Referring Physician: Fawn Monique Allergies, Adverse Reactions, Alerts Substance Reaction Severity Status ibuprofen Active haloperidol Active lithium Active Benadryl Active penicillin Active Bactrim DS 1 acute renal failure Active Apples Active Grapes Active 1had episodes of acute renal failure during admission to [facility] -- resolved both times off Bactrim and [...] 02/07/23 12:50:00 EDT, Route to Pharmacy Electronically, [facility], Partialfill upon patient request if the prescription is fo... Start Date: 02/07/23 Status: Ordered clozapine 100 mg oral tablet 3 tablet = 300 mg, By Mouth, Daily at bedtime, # 90 tablet, 1 Refills, Maintenance, 02/07/23 12:50:00 EDT, [facility], Partial fill upon patient request if the prescription is for a schedule II opioid drug., 165, cm, 01/31/23... Start Date: 02/07/23 Status: Ordered desmopressin 0.2 mg oral tablet 1 tablet = 0.2 mg, By Mouth, Daily at bedtime, # 30 tablet, 0 Refills, Maintenance, 02/07/23 12:52:00 EDT, Tablet, [facility], Partial fill upon patient request if the prescription is for a schedule II opioid drug., 165, cm, 0... Start Date: 02/07/23 Status: Ordered divalproex sodium 500 mg oral tablet, extended release 3 tablet = 1,500 mg, By Mouth, Daily at bedtime, # 90 tablet, 1 Refills, Maintenance, 02/07/23 12:51:00 EDT, ER Tablet, [facility], Partial fill upon patient request if the prescription is for a schedule II opioid drug., 165,... Start Date: 02/07/23 Status: Ordered docusate sodium 100 mg oral tablet = 100 mg, By Mouth, 2 times a day, # 60 tablet, 0 Refills, Maintenance, 02/07/23 12:51:00 EDT, Tablet, [facility], Partial fill upon patient request if the prescription is for a schedule II opioid drug., 165, cm, 01/31/23 0:39... Start Date: 02/07/23 Status: Ordered fluPHENAZine decanoate 25 mg/mL injectable solution = 25 mg, Intramuscular, Every 21 days, Last given 01/26/23 due 02/16/23, # 1 kit, 1 Refills, Maintenance, 02/07/23 12:51:00 EDT, [facility], Partial fill upon patient request ifthe prescription [...] opioid drug. Start Date: 03/22/23 Status: Ordered Lantus Solostar Pen 100 units/mL subcutaneous solution = 28 units, Subcutaneous Injection, Daily at bedtime, # 15 mL, 2 Refills, Maintenance, 02/07/23 12:58:00 EDT, Solution, [facility], Partial fill upon patient request if the prescription is for a schedule II opioid drug., 165,... Start Date: 02/07/23 Status: Ordered metFORMIN 500 mg oral tablet 1 each = 500 mg, By Mouth, 2 times a day, # 60 tablet, 1 Refills, Maintenance, 02/07/23 12:51:00 EDT, Tablet, [facility]-, Partial fill upon patient request if the prescription is for a schedule II opioid drug., 165, cm, ... Start Date: 02/07/23 Status: Ordered trospium 60 mg oral capsule, extended release 1 capsule = 60 mg, By Mouth, Daily in AM, # 30 capsule, 11 Refills, Maintenance, 04/12/23 11:23:00 EDT, CR Capsule, [facility]-, Partial fill upon patient request if the [...] Team Personnel Name: Lawrence Cano RN Position: [facility] RN Member Role: Primary Care Nurse Name: Naynaa Bradshaw RN Position: [facility] RN Member Role: Primary Care Nurse Name: Ana María Espino RN Position: [facility] RN Member Role: Primary Care Nurse Name: Raji Somers RN Position: [facility] RN Member Role: Primary Care Nurse Name: Ulisses Barboza Position: S RN Member Role: Primary Care Nurse Name: Dahiana Thrasher RN Position: [facility] ED RN W/OE and Tasks Member Role: Primary Care Nurse Name: Rick Cih RN Position: S RN Member Role: Primary Care Nurse Name: Maggi Fagan RN Position: [facility] ED RN W/OE and Tasks Member Role: Primary Care Nurse Name: Lawson Rivers RN Position: [facility] RN Supv Member Role: Primary Care Nurse Name: Mark Mccullough RN Position: S RN Member Role: Primary Care Nurse Name: Sidney Jackson MD Position: [facility] Physician - Primary Care Member Role: PCP Address: Address: [address] [place] [address], [address] [place], [place] [address] Name: Nayana Reyes RN Position: [facility] RN Member Role: Primary Care Nurse Name: Anna Cespedes RN Position: [facility] RN Member Role: Primary Care Nurse Name: Gabino Cespedes RN Position: [facility] RN Member Role: Primary Care Nurse Care Team Related Persons Name: BUZZ CASTELLANOS Address: home [address] [place] [address] Name: MARK CLAY Address: home [address] [place] [address] [place] [id number] Name: DORIS KNUTSON Address: home [address] [place] [address]
--- OUTSIDE RECORDS SUMMARY | 2024-02-24 19:45 | XMS_ITS | Continuity of Care Document ---
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 Name Role Phone Ana María Santo MD Primary Care Physician Encounter [facility] Date(s): 02/14/24 - 02/14/[address] [address]- Encounter Diagnosis Fall down steps(Final) - 02/14/24 Headache(Final) - 02/14/24 Neck pain(Final) - 02/14/24 Hypertension(Final) - 02/14/24 Discharge Disposition: A-D/C Home Attending Physician: Ana María Baum MD Admitting Physician: Ana María Baum MD Referring Physician: Not on Staff, Referring MD Allergies, Adverse Reactions, Alerts Substance Reaction Severity Status codeine Active ibuprofen Active haloperidol Active lithium Active penicillin Active Benadryl Active Bactrim DS 1 acute renal failure Active Apples Active Grapes Active 1had episodes of acute renal failure during admission to [facility] -- resolved both times off Bactrim and so have added this to list of meds to avoid. Immunizations Given and Recorded Vaccine Date Status Refusal Reason tetanus/diphtheria/pertussis, acel(Tdap) 02/07/24 Given zoster vaccine, inactivated 08/16/23 Recorded influenza virus [...] tablet, 0 Refills, Maintenance, 12/31/23 8:14:00EDT, Tablet, [facility], Partial fill upon patient request if the prescription is for a schedule II opioid drug., 165, cm, 12/30/23 20:24:00... Start Date: 12/31/23 Stop Date: 01/30/24 Status: Ordered benztropine 0.5 mg oral tablet 0.5 mg, 1, tablet, By Mouth, 2 times a day, # 60 tablet, Refills 0, Tot. Refills 0, Maintenance, 12/31/23 8:15:00 EDT, Route to Pharmacy Electronically, [facility], Partial fill upon patient request if the prescription is for a schedule II o... Start Date: 12/31/23 Stop Date: 01/30/24 Status: Ordered cephalexin monohydrate 500 mg oral capsule 1 capsule = 500 mg, By Mouth, 4 times a day, for 10 days, # 40 capsule, 0 Refills, Acute 02/17/24 14:12:00 EDT, 02/07/24 14:12:00 EDT, Capsule, [facility], Partial fill upon patient requestif the prescription is for a schedule II opioid kristi... Start Date: 02/07/24 Stop Date: 02/17/24 Status: Ordered cetirizine 5 mg oral tablet 1 tablet = 5 mg, By Mouth, Daily at bedtime, PRN Other, allergy symptoms, # 30 tablet, 0 Refills, Maintenance, 12/31/23 8:15:00 EDT, Tablet, [facility], Partial fill upon patient request ifthe prescription is for a schedule II opioid drug.,... Start Date: 12/31/23 Stop Date: 01/30/24 Status: Ordered cholecalciferol 1000 intl units oral tablet 1 tablet = 25 mcg, By Mouth, Daily, # 30 tablet, 0 Refills, Maintenance, 12/31/23 8:15:00 EDT, Tablet, [facility], Partial fill upon patient request if the prescription is for a schedule IIopioid drug., 165, cm, 12/30/23 20:24:00 EDT, [place]... Start Date: 12/31/23 Stop Date: 01/30/24 Status: Ordered clozapine 100 mg oral tablet See Instructions, 250 (2.5 tablets) mg By Mouth Daily at bedtime 30 days, # 75 tablet, 0 Refills, Maintenance, 12/31/23 8:16:00 EDT, Tablet, [facility], Partial fill upon patient request ifthe prescription is for a schedule II opioid drug.,... Start Date: 12/31/23 Status: Ordered divalproex sodium 500 mg oral enteric coated tablet 3 tablet = 1,500 mg, By Mouth, Daily at bedtime, # 90 tablet, 0 Refills, Maintenance, 12/31/23 8:17:00 EDT, Tablet, [facility], Partial fill upon patient request if the prescription is for a schedule II opioid drug., 165, cm, 12/30/23 20:24:... Start Date: 12/31/23 Stop Date: 01/30/24 Status: Ordered docusate sodium 100 mg oral capsule 100 mg, 1, capsule, By Mouth, 2 times a day, PRN, # 60 capsule, Refills 0, Tot. Refills 0, Maintenance, Constipation, 12/31/23 8:18:00 EDT, Route to Pharmacy Electronically, [facility], Partial fill upon patient request if the prescription i... Start Date: 12/31/23 Stop Date: 01/30/24 Status: Ordered FLUoxetine 20 mg oral capsule 20 mg, 1, capsule, By Mouth, Daily, # 30 capsule, Refills 0, Tot. Refills 0, Maintenance, 12/31/23 8:18:00 EDT, Route to Pharmacy Electronically, [facility], Partial fill upon patient request if [...] 0 Refills, Maintenance, 12/31/23 8:19:00 EDT, Tablet, [facility], Partial fill upon patient request if [...] opioid drug. Start Date: 12/13/23 Status: Ordered Rolling walker Rolling walker, See Instructions, # 1 each, Refills 0, Tot. Refills 0, Maintenance, Ht: 55 in Wt: 90 kg Dx: bilateral plantar foot davalos, 02/11/24 11:22:00 EDT, Supply Start Date: 02/11/24 Status: Ordered traZODone 50 mg oral tablet 50 mg, 1, tablet, By Mouth, Daily at bedtime, PRN, # 30 tablet, Refills 0, Tot. Refills 0, Maintenance, Sleep, 12/31/23 8:20:00 EDT, Route to Pharmacy Electronically, [facility], Partial fill upon patient request if the prescription is for a... Start Date: 12/31/23 Stop Date: 01/30/24 Status: Ordered Walker Walker, See Instructions, # 1 each, Refills 0, Tot. Refills 0, Maintenance, Walker for use with ambulation., 02/07/24 14:08:00 EDT, Supply Start Date: 02/07/24 Status: Ordered Problem List Condition Confirmation Course [...] Exam Date Time Procedure Performing Provider Status 02/14/24 8:21 PM Cervical Spine 3 Views or Less Amol Jenkins; Kieran (Verified) Notes: (Cervical Spine 3 Views or Less) Reason For Exam: gas on CT;Trauma RESULT: Cervical Spine 3 Views or Less Cervical Spine 3 Views or Less Hx of Present Illness: pt presents to ed via ems coming from assisted, states she fell down a flight of stairs, denies pain at this time, per ems and facility pt states she falls often but does not, hx of schizo bipolar. pt has developmental delay. a o3 well appearing; Reason: Trauma; gas on CT; Clinical Question(s): Fracture Dislocation; Special Instructions: flexion extension films COMPARISON: None. FINDINGS: No bone lesions or fractures. Normal odontoid and C1/2 relationship. Normal alignment and well preserved disc and vertebral body morphology. Normal prevertebral soft tissues and clear lung apices. IMPRESSION: No spondylolisthesis with flexion or extension. WSN: [id number] Ordering Physician: Carlos Padilla Dictated By: Flavio Mckinley MD Dictated Date/Time: 02/14/24 8:53 pm Reviewed By: Flavio Mckinley MD Signed By: Flavio Mckinley MD Signed Date/Time: 02/14/24 8:53 pm Transcribed By: RANI Transcribed Date/Time: 02/14/24 8:52 pm * Exam Date Time Procedure Performing Provider Status 02/14/24 6:01 PM Chest 2 Views Frontal and Lat Key Mays; Auth (Verified) Notes: (Chest 2 Views Frontal and Lat) Reason For Exam: chest pain;Other: RESULT: Chest 2 Views Frontal and Lat Chest 2 Views Frontal and Lat Hx of Present Illness: pt presents to ed via ems coming from assisted, states she fell down a flight of stairs, denies pain at this time, per ems and facility pt states she falls often but does not, hx of schizo bipolar. pt has developmental delay. a o3 well appearing; Reason: Other:; chest pain;Clinical Question(s): Trauma; Order Comment: COMPARISON: None. FINDINGS: LINES AND TUBES: None. LUNGS AND PLEURA: Low lung volumes with mild bibasilar atelectasis. No focal consolidation. Normal pulmonary vascularity. No pleural effusion. No pneumothorax. HEART, MEDIASTINUM AND COLIN: Heart is normal in size. Normal mediastinal and hilar contour. BONES AND SOFT TISSUES: No acute abnormality. Minimal calcific tendinitis and/or bursitis right shoulder. IMPRESSION: Low lung volumes with mild bibasilar atelectasis. No acute abnormality. WSN: [id number] Ordering Physician: Carlos Padilla Dictated By: Venkatesh Penn MD, V Dictated Date/Time: 02/14/24 6:06 pm Reviewed By: Venkatesh Penn MD, V Signed By: Venkatesh Penn MD, V Signed Date/Time: 02/14/24 6:06 pm Transcribed By: RANI Transcribed Date/Time: 02/14/24 6:04 pm * Exam Date Time Procedure Performing Provider Status 02/14/24 5:[address] Cervical Spine W/O Contrast Ghosh , Shraddha; Auth (Verified) Notes: (CT Cervical Spine W/O Contrast) Reason For Exam: Neck trauma, dangerous injury mechanism;Other: RESULT: CT Cervical Spine W/O Contrast CT Head/Brain W/O Contrast, CT Cervical Spine W/O Contrast Hx of Present Illness: pt presents to ed via ems coming from assisted, states she fell down a flight of stairs, denies pain at this time, per ems and facility pt states she falls often but does not, hx of schizo bipolar. pt has developmental delay. a o3 well appearing; Reason: Trauma; Clinical Question(s): Hematoma COMPARISON: 02/10/2024 TECHNIQUE: Incremental CT without contrast through the head was formatted in axial and coronal plane. Spiral CT without contrast through the cervical spine was formatted in 3 planes. Automatic tube modulation was used for the cervical spine and iterative dose reconstruction was used for both the head and cervical spine to optimize scan parameters and image quality. CTDIvol Body: 14.00 mGy, DLP Body: 392 mGy*cm. CTDIvol Head: 40.40 mGy, DLP Head: 1342 mGy*cm. FINDINGS: Application Architect Manager View Findings, Lines and Tubes: None. CT of HEAD: BRAIN: No parenchymal hemorrhage, midline shift, or mass effect. Echevarria-white matter differentiation is well preserved. No acute infarct. No white matter lesions. VENTRICLES: Ventricles, sulci, and basilar cisterns are normal. EXTRA-AXIAL SPACES: No subarachnoid hemorrhage. No subdural or epidural collection. SKULL/SOFT TISSUES: No fractures or suspicious bony lesions. The extracranial soft tissues are unremarkable. SINUSES: The paranasal sinuses and mastoid air cells are clear. ORBITS: Visualized orbits and globes are intact. CT of CERVICAL SPINE: CERVICAL SPINE: Prominent ossification of the anterior longitudinal ligament. No acute fracture line identified. There is increased gas seen within lucent area anterior to the C4-C5 disc compared to the recent examination, though I do not see evidence of any fracture line or evidence of malalignment. The alignment is maintained. Degenerative changes are noted including disc height loss, anterior osteophytes and posterior disc osteophyte complexes. OTHER BONES: Normal. CERVICAL SOFT TISSUES:Unremarkable. LUNG APICES: Clear lung apices. IMPRESSION: No acute fracture identified. Some increased gas noted within the C4-C5 level at the disc space level, though no malalignment or new fracture line. This finding is of uncertain significance and could possibly be related to traumatic injury at the disc level given the change from the very recent exam. No acute intracranial abnormality. WSN: [id number] Ordering Physician: Carlos Padilla Dictated By: Flavio Mckinley MD Dictated Date/Time: 02/14/24 6:22 pm Reviewed By: Flavio Mckinley MD Signed By: Flavio Mckinley MD Signed Date/Time: 02/14/24 6:22 pm Transcribed By: RANI Transcribed Date/Time: 02/14/24 5:57 pm * Exam Date Time Procedure Performing Provider Status 02/14/24 5:[address] Head/Brain W/O Contrast Anne Ghosh; Auth (Verified) Notes: (CT Head/Brain W/O Contrast) Reason For Exam: Trauma RESULT: CT Head/Brain W/O Contrast CT Head/Brain W/O Contrast, CT Cervical Spine W/O Contrast Hx of Present Illness: pt presents to ed via ems coming from assisted, states she fell down a flight of stairs, denies pain at this time, per ems and facility pt states she falls often but does not, hx of schizo bipolar. pt has developmental delay. a o3 well appearing; Reason: Trauma; Clinical Question(s): Hematoma COMPARISON: 02/10/2024 TECHNIQUE: Incremental CT without contrast through the head was formatted in axial and coronal plane. Spiral CT without contrast through the cervical spine was formatted in 3 planes. Automatic tube modulation was used for the cervical spine and iterative dose reconstruction was used for both the head and cervical spine to optimize scan parameters and image quality. CTDIvol Body: 14.00 mGy, DLP Body: 392 mGy*cm. CTDIvol Head: 40.40 mGy, DLP Head: 1342 mGy*cm. FINDINGS: Application Architect Manager View Findings, Lines and Tubes: None. CT of HEAD: BRAIN: No parenchymal hemorrhage, midline shift, or mass effect. Echevarria-white matter differentiation is well preserved. No acute infarct. No white matter lesions. VENTRICLES: Ventricles, sulci, and basilar cisterns are normal. EXTRA-AXIAL SPACES: No subarachnoid hemorrhage. No subdural or epidural collection. SKULL/SOFT TISSUES: No fractures or suspicious bony lesions. The extracranial soft tissues are unremarkable. SINUSES: The paranasal sinuses and mastoid air cells are clear. ORBITS: Visualized orbits and globes are intact. CT of CERVICAL SPINE: CERVICAL SPINE: Prominent ossification of the anterior longitudinal ligament. No acute fracture line identified. There is increased gas seen within lucent area anterior to the C4-C5 disc compared to the recent examination, though I do not see evidence of any fracture line or evidence of malalignment. The alignment is maintained. Degenerative changes are noted including disc height loss, anterior osteophytes and posterior disc osteophyte complexes. OTHER BONES: Normal. CERVICAL SOFT TISSUES:Unremarkable. LUNG APICES: Clear lung apices. IMPRESSION: No acute fracture identified. Some increased gas noted within the C4-C5 level at the disc space level, though no malalignment or new fracture line. This finding is of uncertain significance and could possibly be related to traumatic injury at the disc level given the change from the very recent exam. No acute intracranial abnormality. WSN: [id number] Ordering Physician: Carlos Padilla Dictated By: Flavio Mckinley MD Dictated Date/Time: 02/14/24 6:22 pm Reviewed By: Flavio Mckinley MD Signed By: Flavio Mckinley MD Signed Date/Time: 02/14/24 6:22 pm Transcribed By: RANI Transcribed Date/Time: 02/14/24 5:57 pm Vital Signs Most recent to oldest [Reference Range]: 1 2 Oxygen Saturation [94-100 %] 95 % (02/14/24 7:46 PM) 94 % (02/14/24 3:04 PM) Pulse Rate [55-90 bpm] 64 bpm (02/14/24 7:46 PM) 60 bpm (02/14/24 3:04 PM) Blood Pressure [90-138/55-84 mm Hg] 110/ 70mm Hg (02/14/24 7:46 PM) 120/95mm Hg (02/14/24 3:04 PM) Respiratory Rate [16-30 br/min] 14 br/mi n *L* (02/14/24 7:46 PM) 19 br/min (02/14/24 3:04 PM) Temperature [96.8-100.4 DegF] 96.9 DegF (02/14/24 3:04 PM) Mode of Delivery (Oxygen) Room air (02/14/24 7:46 PM) Room air (02/14/24 3:04 PM) Blood pressure sites Arm, left (02/14/24 3:04 PM) Temperature Route Oral (02/14/24 3:04 PM) Social History Social History Type Response Smoking Status Former smoker, quit more than 30 days ago entered on: 09/27/20 Sex EKG study * Event Display: ECG 12-Lead Authored Date: Please click on pdf link to open report * Event Display: ECG 12-Lead Authored Date: Ventricular Rate: 94 BPM Atrial Rate: 94 BPM P-R Interval: 154 ms QRS Duration: 66 ms Q-T Interval: 332 ms QTC Calculation(Bazett): 415 ms P [place]: 52 degrees R [place]: -13 degrees T [place]: 19 degrees Normal sinus rhythm Cannot rule out Anterior infarct (cited on or before 02-FEB-2024) Abnormal ECG When compared with ECG of 02-FEB-2024 03:54, Minimal criteria for Inferior infarct are no longer Present Questionable change in initial forces of Anterolateral leads Confirmed by Rick Verma ([id number]) on 02/14/2024 5:33:17 PM [place]: Rick Verma Patient Care team information Care Team Personnel Name: Ana María Santo MD Position: [facility] Physician - Primary Care Member Role: PCP Address: Address: [address] [place] [id number] Name: Alexandra Whipple RN Position: [facility] RN Member Role: Primary Care Nurse Name: Lawrence Cano RN Position: [facility] RN Member Role: Primary Care Nurse Name: Nayana Bradshaw RN Position: [facility] RN Member Role: Primary Care Nurse Name: Ana María Espino RN Position: [facility] RN Member Role: Primary Care Nurse Name: Raji Somers RN Position: [facility] RN Member Role: Primary Care Nurse Name: Ulisses Barboza Position: [facility] RN Member Role: Primary Care Nurse Name: Dahiana Thrasher RN Position: [facility] ED RN W/OE and Tasks Member Role: Primary Care Nurse Name: Shira Ewing RN Position: [facility] RN Member Role: Primary Care Nurse Name: Rick Chi RN Position: [facility] RN Member Role: Primary Care Nurse Name: Maggi Fagan RN Position: [facility] ED RN W/OE and Tasks Member Role: Primary Care Nurse Name: Marlo Davies RN Position: [facility] RN Member Role: Primary Care Nurse Name: Moni Rodriguez Position: [facility] RN Member Role: Primary Care Nurse Name: Lawson Rivers RN Position: [facility] RN Supv Member Role: Primary Care Nurse Name: Mark Mccullough RN Position: [facility] RN Member Role: Primary Care Nurse Name: Ana María Ugarte RN Position: [facility] RN Member Role: Primary Care Nurse Name: Nayana Reyes RN Position: [facility] RN Member Role: Primary Care Nurse Name: Capo Sales RN Position: [facility] RN Member Role: Primary Care Nurse Name: Yenni Medellin RN Position: [facility] RN Member Role: Primary Care Nurse Name: Anna Cespedes RN Position: [facility] RN Member Role: Primary Care Nurse Name: Gabino Cespedes RN Position: [facility] RN Member Role: Primary Care Nurse Care Team Related Persons Name: FABIAN CLAYIC Address: [address] [place] [address] [facility] Name: DORIS KNUTSON Address: home [address] [place] [address]
--- OUTSIDE RECORDS SUMMARY | 2024-02-24 19:45 | XMS_ITS | Continuity of Care Document ---
Author Organization [facility] Franky lawrences [facility] Address [address], [address] [place] [address]- Care Team Providers Care Technical Lead Name Role Phone Sidney Jackson MD Primary Care Physician Encounter [facility] Date(s): 02/28/23 - 04/18/23 [facility] Franky Jims [facility] [address], [address] [place] [address]- Attending Physician: Mary Lopez MD Admitting Physician: Mary Lopez MD Referring Physician: Sidney Jackson MD Allergies, Adverse Reactions, Alerts Substance Reaction Severity Status ibuprofen Active haloperidol Active lithium Active penicillin Active Benadryl Active Bactrim DS 1 acute renal failure Active Apples Active Grapes Active 1had episodes of acute renal failure during admission to [facility] -- resolved both times off Bactrim and [...] 02/07/23 12:50:00 EDT, Route to Pharmacy Electronically, [facility], Partialfill upon patient request if the prescription is fo... Start Date: 02/07/23 Status: Ordered clozapine 100 mg oral tablet 3 tablet = 300 mg, By Mouth, Daily at bedtime, # 90 tablet, 1 Refills, Maintenance, 02/07/23 12:50:00 EDT, [facility], Partial fill upon patient request if the prescription is for a schedule II opioid drug., 165, cm, 01/31/23... Start Date: 02/07/23 Status: Ordered desmopressin 0.2 mg oral tablet 1 tablet = 0.2 mg, By Mouth, Daily at bedtime, # 30 tablet, 0 Refills, Maintenance, 02/07/23 12:52:00 EDT, Tablet, [facility], Partial fill upon patient request if the prescription is for a schedule II opioid drug., 165, cm, 0... Start Date: 02/07/23 Status: Ordered divalproex sodium 500 mg oral tablet, extended release 3 tablet = 1,500 mg, By Mouth, Daily at bedtime, # 90 tablet, 1 Refills, Maintenance, 02/07/23 12:51:00 EDT, ER Tablet, [facility], Partial fill upon patient request if the prescription is for a schedule II opioid drug., 165,... Start Date: 02/07/23 Status: Ordered docusate sodium 100 mg oral tablet = 100 mg, By Mouth, 2 times a day, # 60 tablet, 0 Refills, Maintenance, 02/07/23 12:51:00 EDT, Tablet, [facility], Partial fill upon patient request if the prescription is for a schedule II opioid drug., 165, cm, 01/31/23 0:39... Start Date: 02/07/23 Status: Ordered fluPHENAZine decanoate 25 mg/mL injectable solution = 25 mg, Intramuscular, Every 21 days, Last given 01/26/23 due 02/16/23, # 1 kit, 1 Refills, Maintenance, 02/07/23 12:51:00 EDT, [facility], Partial fill upon patient request ifthe [...] 2 Refills, Maintenance, 02/07/23 12:58:00 EDT, Solution, [facility]- , Partial fill upon patient request if the prescription is for a schedule II opioid drug., 165,... Start Date: 02/07/23 Status: Ordered metFORMIN 500 mg oral tablet 1 each = 500 mg, By Mouth, 2 times a day, # 60 tablet, 1 Refills, Maintenance, 02/07/23 12:51:00 EDT, Tablet, [facility]-, Partial fill upon patient request if the prescription is for a schedule II opioid drug., 165, cm, ... Start Date: 02/07/23 Status: Ordered trospium 60 mg oral capsule, extended release 1 capsule = 60 mg, By Mouth, Daily in AM, # 30 capsule, 11 Refills, Maintenance, 04/12/23 11:23:00 EDT, CR Capsule, [facility]-, Partial fill upon patient request if the [...] Team Personnel Name: Lawrence Cano RN Position: [facility] RN Member Role: Primary Care Nurse Name: Nayana Bradshaw RN Position: [facility] RN Member Role: Primary Care Nurse Name: Ana María Espino RN Position: [facility] RN Member Role: Primary Care Nurse Name: Raji Somers RN Position: [facility] RN Member Role: Primary Care Nurse Name: Ulisses Barboza Position: [facility] RN Member Role: Primary Care Nurse Name: Dahiana Thrasher RN Position: [facility] ED RN W/OE and Tasks Member Role: Primary Care Nurse Name: Rick Chi RN Position: [facility] RN Member Role: Primary Care Nurse Name: Maggi Fagan RN Position: [facility] ED RN W/OE and Tasks Member Role: Primary Care Nurse Name: Lawson Rivers RN Position: [facility] RN Supv Member Role: Primary Care Nurse Name: Mark Mccullough RN Position: [facility] RN Member Role: Primary Care Nurse Name: Sidney Jackson MD Position: [facility] Physician - Primary Care Member Role: PCP Address: Address: [address] [place] [address], [address] [place], [place] [address] [[email or web address]] Name: Nayana Reyes RN Position: [facility] RN Member Role: Primary Care Nurse Name: Anna Cespedes RN Position: [facility] RN Member Role: Primary Care Nurse Name: Gabino Cespedes RN Position: [facility] RN Member Role: Primary Care Nurse Care Team Related Persons Name: BUZZ CASTELLANOS Address: [address] [place] [address] Name: MARK CLAY Address: [address] [place] [id number] Name: DORIS KNUTSON Address: [address] [place] [address]
--- OUTSIDE RECORDS SUMMARY | 2024-02-24 19:45 | XMS_ITS | Continuity of Care Document ---
Author Organization [facility] ter Address [address] [place] [id number]- Care Team Providers Care Alternative Education Teacher Name Role Phone Sidney Jackson MD Primary Care Physician Encounter [facility] Date(s): 12/03/23 - 12/03/[address] [address]- Encounter Diagnosis Fall down stairs(Final) - 12/03/23 Discharge Disposition: A-D/C Home Attending Physician: Andry Reeys DO Admitting Physician: Andry Reyes DO Referring Physician: Not on Staff, Referring MD Allergies, Adverse Reactions, Alerts Substance Reaction Severity Status ibuprofen Active haloperidol Active penicillin Active lithium Active Benadryl Active Bactrim DS 1 acute renal failure Active Grapes Active Apples Active 1had episodes of acute renal failure during admission to [facility] -- resolved both times off Bactrim and [...] [employer]UR Medications acetaminophen 325 mg oral capsule 1 capsule = 325 mg, By Mouth, Every 4 hours, PRN as needed for fever, # 20 capsule, 0 Refills, Maintenance, 09/13/23 22:45:00 EST, Capsule, Partial fill upon patient request if the prescription is for a schedule II opioid drug. Start Date: 09/13/23 Status: Ordered atorvastatin 20 mg oral tablet 1 tablet = 20 mg, By Mouth, Daily, 0 Refills, Maintenance, 11/12/23 4:08:00 EST, Partial fill upon patient request if the prescription is for a schedule II opioid drug. Start Date: 11/12/23 Status: Ordered benztropine 0.5 mg oral tablet Refills 0, Maintenance, 11/27/23 10:35:00 EDT, Partial fill upon patient request if the prescription is for a schedule II opioid drug. Start Date: 11/27/23 Status: Ordered benztropine 1 mg oral tablet 1 mg, 1, tablet, By Mouth, Daily at bedtime, # 30 tablet, Refills 0, Tot. Refills 0, Maintenance, 02/07/23 12:50:00 EDT, Route to Pharmacy Electronically, [facility] Partialfill upon patient request if the prescription is fo... Start Date: 02/07/23 Status: Ordered Cetirizine 0 Refills, Maintenance, 11/27/23 10:35:00 EDT, Partial fill upon patient request if the prescription is for a schedule II opioid drug. Start Date: 11/27/23 Status: Ordered clozapine 100 mg oral tablet 3 tablet = 300 mg, By Mouth, Daily at bedtime, # 90 tablet, 1 Refills, Maintenance, 02/07/23 12:50:00 EDT, [facility] Partial fill upon patient request if the prescription is for a schedule II opioid drug., 165, cm, 01/31/23... Start Date: 02/07/23 Status: Ordered divalproex sodium 500 mg oral tablet, extended release 3 tablet = 1,500 mg, By Mouth, Daily at bedtime, # 90 tablet, 1 Refills, Maintenance, 02/07/23 12:51:00 EDT, ER Tablet, [facility]- , Partial fill upon patient request if the prescription is for a schedule II opioid drug., 165,... Start Date: 02/07/23 Status: Ordered docusate sodium 100 mg oral tablet = 100 mg, By Mouth, 2 times a day, # 60 tablet, 0 Refills, Maintenance, 02/07/23 12:51:00 EDT, Tablet, [facility] Partial fill upon patient request if the prescription is for a schedule II opioid drug., 165, cm, 01/31/23 0:39... Start Date: 02/07/23 Status: Ordered famotidine 20 mg oral tablet 20 mg, 1, tablet, By Mouth, Daily, # 30 tablet, Refills 0, Maintenance, 09/13/23 22:45:00 EST, Partial fill upon patient request if the prescription is for a schedule II opioid drug. Start Date: 09/13/23 Status: Ordered Fluoxetine = 30 mg, By Mouth, Daily, 0 Refills, Maintenance, 11/12/23 4:05:00 EST, Partial fill upon patient request if the prescription is for a schedule II opioid drug. Start Date: 11/12/23 Status: Ordered fluPHENAZine 2.5 mg oral tablet 1 tablet = 2.5 mg, By Mouth, Every 12 hours, # 60 tablet, 0 Refills, Maintenance, 11/12/23 4:04:00 EST, Tablet, Partial fill upon patient request if the prescription is for a schedule II opioid drug. Start Date: 11/12/23 Status: Ordered Freestyle Lancets See Instructions, # [...] Date: 02/07/23 Stop Date: 03/09/23 Status: Ordered hydrOXYzine hydrochloride 25 mg oral tablet 0 Refills, Maintenance, 11/27/23 10:35:00 EDT, Partial fill upon patient request if the prescription is for a schedule II opioid drug. Start Date: 11/27/23 Status: Ordered insulin glargine 100 units/mL subcutaneous solution = 24 units, Subcutaneous Injection, Daily at bedtime, # 10 mL, 0 Refills, Maintenance, 05/17/23 22:06:00 EDT, Solution, Partial fill upon patient request if the prescription is for a schedule II opioid drug. Start Date: 05/17/23 Status: Ordered LORazepam 0.5 mg oral tablet 1 tablet = 0.5 mg, By Mouth, 2 times a day, PRN as needed for anxiety, 0 Refills, Maintenance, 09/13/23 22:44:00 EST, Tablet, Partial fill upon patient request if the prescription is for a schedule II opioid drug. Start Date: 09/13/23 Status: Ordered Melatonin 0 Refills, Maintenance, 11/27/23 10:35:00 EDT, Partial fill upon patient request if the prescription is for a schedule II opioid drug. Start Date: 11/27/23 Status: Ordered metFORMIN 500 mg oral tablet 1 each = 500 mg, By Mouth, 2 times a day, # 60 tablet, 1 Refills, Maintenance, 02/07/23 12:51:00 EDT, Tablet, [facility] Partial fill upon patient request if the prescription is for a schedule II opioid drug., 165, cm, ... Start Date: 02/07/23 Status: Ordered MiraLax oral powder for reconstitution = 17 Gm, By Mouth, Daily, dissolve in 4 to 8 oz of beverage, # 119 Gm, 0 Refills, Maintenance, 11/12/23 9:15:00 EST, REC Powder, [facility] Partial fill upon patient requestif the prescription is for a schedule II opioid kristi... Start Date: 11/12/23 Stop Date: 11/19/23 Status: Ordered trospium 60 mg oral capsule, extended release 1 capsule = 60 mg, By Mouth, Daily in AM, # 30 capsule, 5 Refills, Maintenance, 11/27/23 10:50:00 EDT, CR Capsule, [facility], Partial fill upon patient request if the prescription is for aschedule II opioid drug., 165, cm, 11/12/23 6:59:00... Start Date: 11/27/23 Status: Ordered Problem List Condition Confirmation Course [...] Exam Date Time Procedure Performing Provider Status 12/03/23 9:[address] Cervical Spine W/O Contrast Shakir Ortega; Kieran (Verified) Notes: (CT Cervical Spine W/O Contrast) Reason For Exam: Neck trauma, dangerous injury mechanism;Other: RESULT: CT Cervical Spine W/O Contrast CT Head/Brain W/O Contrast, CT Cervical Spine W/O Contrast INDICATION: Hx of Present Illness: from halfway. Slipped down stairs, back neck pain. Arrives collared. Difficulty ambulating.; Reason: Other:; Head trauma, mod-severe; Clinical Question(s): Hematoma TECHNIQUE: Noncontrast head CT using axial technique was reconstructed in axial and coronal planes.Noncontrast spiral CT through the cervical spine was formatted in 3 planes. Automatic tube modulation was used for the cervical spine and iterative dose reconstruction was used for both the head and cervical spine to optimize scan parameters and image quality. CTDIvol Body: 16.80 mGy, DLP Body: 387 mGy*cm. CTDIvol Head: 41.10 mGy, DLP Head: 672 mGy*cm. COMPARISON: None. FINDINGS: Tube Sorter View Findings, Lines and Tubes: None. BRAIN AND EXTRA-AXIAL SPACES: No parenchymal hemorrhage, midline shift, or mass effect. Echevarria-white matter differentiation is wellpreserved. No acute infarct. Ventricles, sulci, and basilar cisterns are normal. No white matter lesions. No subarachnoid hemorrhage. No subdural or epidural collection. CALVARIUM, SKULL BASE, AND SOFT TISSUES: No fractures or suspicious bony lesions. The paranasal sinuses and mastoid air cells are clear. Visualized orbits and globes are intact. The extracranial soft tissues are unremarkable. CERVICAL SPINE: No fracture. No acute osseous abnormalities. Normal alignment. No locked or perched facet. Mild multilevel degenerative disc space narrowing andend plate irregularity. There are anterior flowing osteophytes. Narrowing of the atlantodens interval. OTHER BONES: No acute abnormality. CERVICAL SOFT TISSUES AND LUNG APICES: Normal soft tissues. Visualized lung apices are clear. IMPRESSION: No acute abnormality of the head or cervical spine. WSN: [id number] Ordering Physician: Costa Colby Dictated By: Beatrice Henry MD Dictated Date/Time: 12/03/23 10:28 p Reviewed By: Beatrice Henry MD Signed By: Beatrice Henry MD Signed Date/Time: 12/03/23 10:28 pm Transcribed By: RANI Transcribed Date/Time: 12/03/23 10:11 pm * Exam Date Time Procedure Performing Provider Status 12/03/23 9:[address] Head/Brain W/O Contrast Shakir Adam; Auth (Verified) Notes: (CT Head/Brain W/O Contrast) Reason For Exam: Head trauma, mod-severe;Other: RESULT: CT Head/Brain W/O Contrast CT Head/Brain W/O Contrast, CT Cervical Spine W/O Contrast INDICATION: Hx of Present Illness: from halfway. Slipped down stairs, back neck pain. Arrives collared. Difficulty ambulating.; Reason: Other:; Head trauma, mod-severe; Clinical Question(s): Hematoma TECHNIQUE: Noncontrast head CT using axial technique was reconstructed in axial and coronal planes.Noncontrast spiral CT through the cervical spine was formatted in 3 planes. Automatic tube modulation was used for the cervical spine and iterative dose reconstruction was used for both the head and cervical spine to optimize scan parameters and image quality. CTDIvol Body: 16.80 mGy, DLP Body: 387 mGy*cm. CTDIvol Head: 41.10 mGy, DLP Head: 672 mGy*cm. COMPARISON: None. FINDINGS: Tube Sorter View Findings, Lines and Tubes: None. BRAIN AND EXTRA-AXIAL SPACES: No parenchymal hemorrhage, midline shift, or mass effect. Echevarria-white matter differentiation is wellpreserved. No acute infarct. Ventricles, sulci, and basilar cisterns are normal. No white matter lesions. No subarachnoid hemorrhage. No subdural or epidural collection. CALVARIUM, SKULL BASE, AND SOFT TISSUES: No fractures or suspicious bony lesions. The paranasal sinuses and mastoid air cells are clear. Visualized orbits and globes are intact. The extracranial soft tissues are unremarkable. CERVICAL SPINE: No fracture. No acute osseous abnormalities. Normal alignment. No locked or perched facet. Mild multilevel degenerative disc space narrowing andend plate irregularity. There are anterior flowing osteophytes. Narrowing of the atlantodens interval. OTHER BONES: No acute abnormality. CERVICAL SOFT TISSUES AND LUNG APICES: Normal soft tissues. Visualized lung apices are clear. IMPRESSION: No acute abnormality of the head or cervical spine. WSN: [id number] Ordering Physician: Costa Colby Dictated By: Beatrice Henry MD Dictated Date/Time: 12/03/23 10:28 p Reviewed By: Beatrice Henry MD Signed By: Beatrice Henry MD Signed Date/Time: 12/03/23 10:28 pm Transcribed By: RANI Transcribed Date/Time: 12/03/23 10:11 pm * Exam Date Time Procedure Performing Provider Status 12/03/23 9:[address] Thoracic Spine W/ Contrast Shakir Guadalupe; Auth (Verified) Notes: (CT Thoracic Spine W/ Contrast) Reason For Exam: Spine fracture, thoracic, traumatic;Other: RESULT: CT Thoracic Spine W/ Contrast CT Chest W/ Contrast, CT Abd/Pelvis W/ IV Contrast Only, CT Lumbar Spine W/ Contrast, CT Thoracic Spine W/ Contrast INDICATION: Hx of Present Illness: from halfway. Slipped down stairs, back neck pain. Arrives collared. Difficulty ambulating.; Reason: Other:; Chest trauma, blunt; Clinical Question(s): Other:; Aortic hilar injury; Order Comment: TECHNIQUE: Helical CT scan of the chest, abdomen, and pelvis with IV contrast, formatted in 3 planes. The original dataset was reconstructed with a small field of view around the thoracic and lumbar spine utilizing soft tissue and bone algorithm reconstructions in 3 planes. 100 cc of Omnipaque 300 was administered intravenously. This study was performed without oral contrast. Weight-based protocol was performed using automatic exposure control. CTDIvol Body: 15.00 mGy, DLP Body: 1028 mGy*cm. COMPARISON: None. FINDINGS: Tube Sorter view findings, lines and tubes: None. Trachea and airways: Patent without evidence of tracheal or endobronchial lesion. Lungs and pleura: Minimal dependent atelectasis. No effusion or pneumothorax. Mediastinum and michele: No mass or hematoma. No mediastinal or hilar lymphadenopathy. Gaseous distention of esophagus. Heart: Heart is normal in size. No pericardial effusion. Aorta: No aortic aneurysm. Pulmonary arteries: Normal caliber. No evidence of pulmonary embolism on this study performed without angiographic technique. Chest wall soft tissues: No acute abnormality. Diaphragm: Intact. Liver: Normal in attenuation and morphology. No suspicious lesion. Gallbladder: No CT evidence of gallbladder pathology. Bile ducts: No biliary ductal dilation. Spleen: Normal in size. Pancreas: No suspicious lesion or ductal dilatation. Adrenal glands: No nodule. Kidneys and ureters: No hydronephrosis, stone, or suspicious lesion. Numerous cysts within bilateral kidneys. Bladder: No wall thickening or surrounding stranding. Reproductive organs: Unremarkable. Stomach, small bowel, and large bowel: Normal caliber stomach and bowel loops. No surrounding inflammatory changes. Moderate amount of stool throughout colon. There is solidification of the small bowel content. Appendix: No evidence of acute appendicitis. Peritoneum and retroperitoneum: No ascites or pneumoperitoneum. No omental or mesenteric lesions. Lymph nodes: No enlarged lymph nodes. Blood vessels: No vascular calcifications or aneurysm. No evidence of venous thrombosis. Abdominal and pelvic wall soft tissues: No acute abnormality. Bones: No acute abnormality. Bilateral rotator cuff calcific tendinitis. Thoracic spine: No fracture nor subluxation. Disc degenerative disease throughout the thoracic spine. Anterior flowing osteophytes. Lumbar spine: No fracture and no subluxation. Mild anterolisthesis of L4 on L5 level with bilateralfacet degenerative disease. IMPRESSION: No traumatic injury to the chest, abdomen, or pelvis. No compression fracture or subluxation. Ankylosing spondylitis of the thoracic spine. WSN: [id number] Ordering Physician: Costa Colby Dictated By: Beatrice Henry MD Dictated Date/Time: 12/03/23 9:52 pm Reviewed By: Beatrice Henry MD Signed By: Beatrice Henry MD Signed Date/Time: 12/03/23 9:52 pm Transcribed By: RANI Transcribed Date/Time: 12/03/23 9:33 pm * Exam Date Time Procedure Performing Provider Status 12/03/23 9:[address] Lumbar Spine W/ Contrast Shakir Adam; Kieran (Verified) Notes: (CT Lumbar Spine W/ Contrast) Reason For Exam: Spine fracture, lumbar, traumatic;Other: RESULT: CT Lumbar Spine W/ Contrast CT Chest W/ Contrast, CT Abd/Pelvis W/ IV Contrast Only, CT Lumbar Spine W/ Contrast, CT Thoracic Spine W/ Contrast INDICATION: Hx of Present Illness: from halfway. Slipped down stairs, back neck pain. Arrives collared. Difficulty ambulating.; Reason: Other:; Chest trauma, blunt; Clinical Question(s): Other:; Aortic hilar injury; Order Comment: TECHNIQUE: Helical CT scan of the chest, abdomen, and pelvis with IV contrast, formatted in 3 planes. The original dataset was reconstructed with a small field of view around the thoracic and lumbar spine utilizing soft tissue and bone algorithm reconstructions in 3 planes. 100 cc of Omnipaque 300 was administered intravenously. This study was performed without oral contrast. Weight-based protocol was performed using automatic exposure control. CTDIvol Body: 15.00 mGy, DLP Body: 1028 mGy*cm. COMPARISON: None. FINDINGS: Tube Sorter view findings, lines and tubes: None. Trachea and airways: Patent without evidence of tracheal or endobronchial lesion. Lungs and pleura: Minimal dependent atelectasis. No effusion or pneumothorax. Mediastinum and michele: No mass or hematoma. No mediastinal or hilar lymphadenopathy. Gaseous distention of esophagus. Heart: Heart is normal in size. No pericardial effusion. Aorta: No aortic aneurysm. Pulmonary arteries: Normal caliber. No evidence of pulmonary embolism on this study performed without angiographic technique. Chest wall soft tissues: No acute abnormality. Diaphragm: Intact. Liver: Normal in attenuation and morphology. No suspicious lesion. Gallbladder: No CT evidence of gallbladder pathology. Bile ducts: No biliary ductal dilation. Spleen: Normal in size. Pancreas: No suspicious lesion or ductal dilatation. Adrenal glands: No nodule. Kidneys and ureters: No hydronephrosis, stone, or suspicious lesion. Numerous cysts within bilateral kidneys. Bladder: No wall thickening or surrounding stranding. Reproductive organs: Unremarkable. Stomach, small bowel, and large bowel: Normal caliber stomach and bowel loops. No surrounding inflammatory changes. Moderate amount of stool throughout colon. There is solidification of the small bowel content. Appendix: No evidence of acute appendicitis. Peritoneum and retroperitoneum: No ascites or pneumoperitoneum. No omental or mesenteric lesions. Lymph nodes: No enlarged lymph nodes. Blood vessels: No vascular calcifications or aneurysm. No evidence of venous thrombosis. Abdominal and pelvic wall soft tissues: No acute abnormality. Bones: No acute abnormality. Bilateral rotator cuff calcific tendinitis. Thoracic spine: No fracture nor subluxation. Disc degenerative disease throughout the thoracic spine. Anterior flowing osteophytes. Lumbar spine: No fracture and no subluxation. Mild anterolisthesis of L4 on L5 level with bilateralfacet degenerative disease. IMPRESSION: No traumatic injury to the chest, abdomen, or pelvis. No compression fracture or subluxation. Ankylosing spondylitis of the thoracic spine. WSN: [id number] Ordering Physician: Costa Colby Dictated By: Beatrice Henry MD Dictated Date/Time: 12/03/23 9:52 pm Reviewed By: Beatrice Henry MD Signed By: Beatrice Henry MD Signed Date/Time: 12/03/23 9:52 pm Transcribed By: RANI Transcribed Date/Time: 12/03/23 9:33 pm * Exam Date Time Procedure Performing Provider Status 12/03/23 9:[address] Abd/Pelvis W/ IV Contrast Only Shakir Adam (Verified) Notes: (CT Abd/Pelvis W/ IV Contrast Only) Reason For Exam: Abd trauma, blunt;Other: RESULT: CT Abd/Pelvis W/ IV Contrast Only CT Chest W/ Contrast, CT Abd/Pelvis W/ IV Contrast Only, CT Lumbar Spine W/ Contrast, CT Thoracic Spine W/ Contrast INDICATION: Hx of Present Illness: from halfway. Slipped down stairs, back neck pain. Arrives collared. Difficulty ambulating.; Reason: Other:; Chest trauma, blunt; Clinical Question(s): Other:; Aortic hilar injury; Order Comment: TECHNIQUE: Helical CT scan of the chest, abdomen, and pelvis with IV contrast, formatted in 3 planes. The original dataset was reconstructed with a small field of view around the thoracic and lumbar spine utilizing soft tissue and bone algorithm reconstructions in 3 planes. 100 cc of Omnipaque 300 was administered intravenously. This study was performed without oral contrast. Weight-based protocol was performed using automatic exposure control. CTDIvol Body: 15.00 mGy, DLP Body: 1028 mGy*cm. COMPARISON: None. FINDINGS: Tube Sorter view findings, lines and tubes: None. Trachea and airways: Patent without evidence of tracheal or endobronchial lesion. Lungs and pleura: Minimal dependent atelectasis. No effusion or pneumothorax. Mediastinum and michele: No mass or hematoma. No mediastinal or hilar lymphadenopathy. Gaseous distention of esophagus. Heart: Heart is normal in size. No pericardial effusion. Aorta: No aortic aneurysm. Pulmonary arteries: Normal caliber. No evidence of pulmonary embolism on this study performed without angiographic technique. Chest wall soft tissues: No acute abnormality. Diaphragm: Intact. Liver: Normal in attenuation and morphology. No suspicious lesion. Gallbladder: No CT evidence of gallbladder pathology. Bile ducts: No biliary ductal dilation. Spleen: Normal in size. Pancreas: No suspicious lesion or ductal dilatation. Adrenal glands: No nodule. Kidneys and ureters: No hydronephrosis, stone, or suspicious lesion. Numerous cysts within bilateral kidneys. Bladder: No wall thickening or surrounding stranding. Reproductive organs: Unremarkable. Stomach, small bowel, and large bowel: Normal caliber stomach and bowel loops. No surrounding inflammatory changes. Moderate amount of stool throughout colon. There is solidification of the small bowel content. Appendix: No evidence of acute appendicitis. Peritoneum and retroperitoneum: No ascites or pneumoperitoneum. No omental or mesenteric lesions. Lymph nodes: No enlarged lymph nodes. Blood vessels: No vascular calcifications or aneurysm. No evidence of venous thrombosis. Abdominal and pelvic wall soft tissues: No acute abnormality. Bones: No acute abnormality. Bilateral rotator cuff calcific tendinitis. Thoracic spine: No fracture nor subluxation. Disc degenerative disease throughout the thoracic spine. Anterior flowing osteophytes. Lumbar spine: No fracture and no subluxation. Mild anterolisthesis of L4 on L5 level with bilateralfacet degenerative disease. IMPRESSION: No traumatic injury to the chest, abdomen, or pelvis. No compression fracture or subluxation. Ankylosing spondylitis of the thoracic spine. WSN: [id number] Ordering Physician: Costa Colby Dictated By: Beatrice Henry MD Dictated Date/Time: 12/03/23 9:52 pm Reviewed By: Beatrice Henry MD Signed By: Beatrice Henry MD Signed Date/Time: 12/03/23 9:52 pm Transcribed By: RANI Transcribed Date/Time: 12/03/23 9:33 pm * Exam Date Time Procedure Performing Provider Status 12/03/23 9:[address] Chest W/ Contrast Shakir Adam; Kieran (Verified) Notes: (CT Chest W/ Contrast) Reason For Exam: Chest trauma, blunt;Other: RESULT: CT Chest W/ Contrast CT Chest W/ Contrast, CT Abd/Pelvis W/ IV Contrast Only, CT Lumbar Spine W/ Contrast, CT Thoracic Spine W/ Contrast INDICATION: Hx of Present Illness: from halfway. Slipped down stairs, back neck pain. Arrives collared. Difficulty ambulating.; Reason: Other:; Chest trauma, blunt; Clinical Question(s): Other:; Aortic hilar injury; Order Comment: TECHNIQUE: Helical CT scan of the chest, abdomen, and pelvis with IV contrast, formatted in 3 planes. The original dataset was reconstructed with a small field of view around the thoracic and lumbar spine utilizing soft tissue and bone algorithm reconstructions in 3 planes. 100 cc of Omnipaque 300 was administered intravenously. This study was performed without oral contrast. Weight-based protocol was performed using automatic exposure control. CTDIvol Body: 15.00 mGy, DLP Body: 1028 mGy*cm. COMPARISON: None. FINDINGS: Tube Sorter view findings, lines and tubes: None. Trachea and airways: Patent without evidence of tracheal or endobronchial lesion. Lungs and pleura: Minimal dependent atelectasis. No effusion or pneumothorax. Mediastinum and michele: No mass or hematoma. No mediastinal or hilar lymphadenopathy. Gaseous distention of esophagus. Heart: Heart is normal in size. No pericardial effusion. Aorta: No aortic aneurysm. Pulmonary arteries: Normal caliber. No evidence of pulmonary embolism on this study performed without angiographic technique. Chest wall soft tissues: No acute abnormality. Diaphragm: Intact. Liver: Normal in attenuation and morphology. No suspicious lesion. Gallbladder: No CT evidence of gallbladder pathology. Bile ducts: No biliary ductal dilation. Spleen: Normal in size. Pancreas: No suspicious lesion or ductal dilatation. Adrenal glands: No nodule. Kidneys and ureters: No hydronephrosis, stone, or suspicious lesion. Numerous cysts within bilateral kidneys. Bladder: No wall thickening or surrounding stranding. Reproductive organs: Unremarkable. Stomach, small bowel, and large bowel: Normal caliber stomach and bowel loops. No surrounding inflammatory changes. Moderate amount of stool throughout colon. There is solidification of the small bowel content. Appendix: No evidence of acute appendicitis. Peritoneum and retroperitoneum: No ascites or pneumoperitoneum. No omental or mesenteric lesions. Lymph nodes: No enlarged lymph nodes. Blood vessels: No vascular calcifications or aneurysm. No evidence of venous thrombosis. Abdominal and pelvic wall soft tissues: No acute abnormality. Bones: No acute abnormality. Bilateral rotator cuff calcific tendinitis. Thoracic spine: No fracture nor subluxation. Disc degenerative disease throughout the thoracic spine. Anterior flowing osteophytes. Lumbar spine: No fracture and no subluxation. Mild anterolisthesis of L4 on L5 level with bilateralfacet degenerative disease. IMPRESSION: No traumatic injury to the chest, abdomen, or pelvis. No compression fracture or subluxation. Ankylosing spondylitis of the thoracic spine. WSN: [id number] Ordering Physician: Costa Colby Dictated By: Beatrice Henry MD Dictated Date/Time: 12/03/23 9:52 pm Reviewed By: Beatrice Henry MD Signed By: Beatrice Henry MD Signed Date/Time: 12/03/23 9:52 pm Transcribed By: RANI Transcribed Date/Time: 12/03/23 9:33 pm Vital Signs Most recent to oldest [Reference Range]: 1 2 Oxygen Saturation [94-100 %] 95 % (12/03/23 11:02 PM) 99 % (12/03/23 7:26 PM) Pulse Rate [55-90 bpm] 80 bpm (12/03/23 11:02 PM) 79 bpm (12/03/23 7:26 PM) Blood Pressure [90-138/55-84 mm Hg] 126/ 106mm Hg (12/03/23 11:02 PM) 111/81mm Hg (12/03/23 7:26 PM) Respiratory Rate [16-30 br/min] 18 br/mi n (12/03/23 11:02 PM) 22 br/min (12/03/23 7:26 PM) Temperature [96.8-100.4 DegF] 97.7 DegF (12/03/23 11:02 PM) 97.7 DegF (12/03/23 7:47 PM) Mode of Delivery (Oxygen) Room air (12/03/23 11:02 PM) Room air (12/03/23 7:26 PM) Blood pressure sites Arm, left (12/03/23 11:02 PM) Arm, left (12/03/23 7:26 PM) Temperature Route Oral (12/03/23 11:02 PM) Oral (12/03/23 7:47 PM) Social History Social History Type Response Smoking Status Former smoker, quit more than 30 days ago entered on: 09/27/20 Sex Patient Care team information Care Team Personnel Name: Lawrence Cano RN Position: [facility] RN Member Role: Primary Care Nurse Name: Nayana Bradshaw RN Position: [facility] RN Member Role: Primary Care Nurse Name: Ana María Espino RN Position: [facility] RN Member Role: Primary Care Nurse Name: Raji Somers RN Position: [facility] RN Member Role: Primary Care Nurse Name: Ulisses Barboza Position: [facility] RN Member Role: Primary Care Nurse Name: Dahiana Thrasher RN Position: [facility] ED RN W/OE and Tasks Member Role: Primary Care Nurse Name: Rick Chi RN Position: [facility] RN Member Role: Primary Care Nurse Name: Maggi Fagan RN Position: [facility] ED RN W/OE and Tasks Member Role: Primary Care Nurse Name: Lawson Rivers RN Position: [facility] RN Supv Member Role: Primary Care Nurse Name: Mark Mccullough RN Position: S RN Member Role: Primary Care Nurse Name: Sidney Jackson MD Position: [facility] Physician - Primary Care Member Role: PCP Address: Address: [facility], [address] [facility] [place] [address]- [place] Name: Nayana Reyes RN Position: S RN Member Role: Primary Care Nurse Name: Anna Cespedes RN Position: S RN Member Role: Primary Care Nurse Name: Gabino Cespedes RN Position: S RN Member Role: Primary Care Nurse Care Team Related Persons Name: MARK CLAY Address: home [address] [place] [address] [address] [place] [address] Name: LONG-TERM, LORI Name: DORIS KNUTSON Address: home [address] [place] [address]
--- OUTSIDE RECORDS SUMMARY | 2024-02-24 19:45 | XMS_ITS | Continuity of Care Document ---
Author Organization [facility] Address [address] [place] [id number] Care Team Providers Care Disability Insurance Hearing Officer Name Role Phone Gal PADILLA, Ana María Shepard Primary Care Physician ( [phone] Encounter [facility] Date(s): 02/15/24 - 02/15/[address] [address]- Encounter Diagnosis Falls(Final) - 02/15/24 Discharge Disposition: A-D/C Home Attending Physician: Milagros Olivia MD Admitting Physician: Milagros Olviia MD Referring Physician: Not on Staff, Referring MD Allergies, Adverse Reactions, Alerts Substance Reaction Severity Status codeine Active ibuprofen Active haloperidol Active lithium Active penicillin Active Benadryl Active Bactrim DS 1 acute renal failure Active Apples Active Grapes Active 1had episodes of acute renal failure during admission to [facility] -- resolved both times off Bactrim and [...] tablet, 0 Refills, Maintenance, 12/31/23 8:14:00EDT, Tablet, [facility], Partial fill upon patient request if the prescription is for a schedule II opioid drug., 165, cm, 12/30/23 20:24:00... Start Date: 12/31/23 Stop Date: 01/30/24 Status: Ordered benztropine 0.5 mg oral tablet 0.5 mg, 1, tablet, By Mouth, 2 times a day, # 60 tablet, Refills 0, Tot. Refills 0, Maintenance, 12/31/23 8:15:00 EDT, Route to Pharmacy Electronically, [facility], Partial fill upon patient request if the prescription is for a schedule II o... Start Date: 12/31/23 Stop Date: 01/30/24 Status: Ordered cephalexin monohydrate 500 mg oral capsule 1 capsule = 500 mg, By Mouth, 4 times a day, for 10 days, # 40 capsule, 0 Refills, Acute 02/17/24 14:12:00 EDT, 02/07/24 14:12:00 EDT, Capsule, [facility], Partial fill upon patient requestif the prescription is for a schedule II opioid kristi... Start Date: 02/07/24 Stop Date: 02/17/24 Status: Ordered cetirizine 5 mg oral tablet 1 tablet = 5 mg, By Mouth, Daily at bedtime, PRN Other, allergy symptoms, # 30 tablet, 0 Refills, Maintenance, 12/31/23 8:15:00 EDT, Tablet, [facility], Partial fill upon patient request ifthe prescription is for a schedule II opioid drug.,... Start Date: 12/31/23 Stop Date: 01/30/24 Status: Ordered cholecalciferol 1000 intl units oral tablet 1 tablet = 25 mcg, By Mouth, Daily, # 30 tablet, 0 Refills, Maintenance, 12/31/23 8:15:00 EDT, Tablet, [facility], Partial fill upon patient request if the prescription is for a schedule IIopioid drug., kahlil Haas, 12/30/23 20:24:00 EDT, Heigh... Start Date: 12/31/23 Stop Date: 01/30/24 Status: Ordered clozapine 100 mg oral tablet See Instructions, 250 (2.5 tablets) mg By Mouth Daily at bedtime 30 days, # 75 tablet, 0 Refills, Maintenance, 12/31/23 8:16:00 EDT, Tablet, [facility], Partial fill upon patient request ifthe prescription is for a schedule II opioid drug.,... Start Date: 12/31/23 Status: Ordered divalproex sodium 500 mg oral enteric coated tablet 3 tablet = 1,500 mg, By Mouth, Daily at bedtime, # 90 tablet, 0 Refills, Maintenance, 12/31/23 8:17:00 EDT, Tablet, [facility], Partial fill upon patient request if the prescription is for a schedule II opioid drug., 165, cm, 12/30/23 20:24:... Start Date: 12/31/23 Stop Date: 01/30/24 Status: Ordered docusate sodium 100 mg oral capsule 100 mg, 1, capsule, By Mouth, 2 times a day, PRN, # 60 capsule, Refills 0, Tot. Refills 0, Maintenance, Constipation, 12/31/23 8:18:00 EDT, Route to Pharmacy Electronically, [facility], Partial fill upon patient request if the prescription i... Start Date: 12/31/23 Stop Date: 01/30/24 Status: Ordered FLUoxetine 20 mg oral capsule 20 mg, 1, capsule, By Mouth, Daily, # 30 capsule, Refills 0, Tot. Refills 0, Maintenance, 12/31/23 8:18:00 EDT, Route to Pharmacy Electronically, [facility], Partial fill upon patient request if [...] 0 Refills, Maintenance, 12/31/23 8:19:00 EDT, Tablet, [facility], Partial fill upon patient request if [...] 12/31/23 8:20:00 EDT, Route to Pharmacy Electronically, [facility], Partial fill upon patient request if [...] Exam Date Time Procedure Performing Provider Status 02/15/24 12:06 PM Tibia/Fibula 2 Views Right Yenni Ferris (Verified) Notes: (Tibia/Fibula 2 Views Right) Reason For Exam: Pain RESULT: Tibia/Fibula 2 Views Right Tibia/Fibula 2 Views Right Hx of Present Illness: pt arrives via EMS from residential for a unwitnessed fall, per staff pt was in bathroom washing hands and they heard a thud. pt c o head neck pain, [facility] in [facility]. pt discharged last night, hx of schizophrenia and bipolar. pt at baseline; Reason: Pain; Clinical Question(s): Fracture COMPARISON: 01/07/2024 FINDINGS: No fractures or bone lesions. Degenerative changes of the knee and to a lesser extent the ankle. Normal soft tissues. IMPRESSION: No evidence of acute osseous abnormality. WSN: [id number] Ordering Physician: Arias Hyatt Dictated By: Myron Floyd MD Dictated Date/Time: 02/15/24 12:14 p Reviewed By: Myron Floyd MD Signed By: Myron Floyd MD Signed Date/Time: 02/15/24 12:14 pm Transcribed By: RANI Transcribed Date/Time: 02/15/24 12:14 pm * Exam Date Time Procedure Performing Provider Status 02/15/24 10:[address] Cervical Spine W/ O Contrast Yenni Wills; Auth (Verified) Notes: (CT Cervical Spine W/O Contrast) Reason For Exam: Neck trauma, dangerous injury mechanism;Other: RESULT: CT Cervical Spine W/O Contrast CT Head/Brain W/O Contrast, CT Cervical Spine W/O Contrast Hx of Present Illness: pt arrives via EMS from residential for a unwitnessed fall, per staff pt was in bathroom washing hands and they heard a thud. Pt complaining of head and neck pain, placed in [facility]. Pt discharged last night, hx of schizophrenia and bipolar at baseline; Reason: Trauma; Clinical Question(s): Hematoma; TECHNIQUE: Incremental CT without contrast through the head was formatted in axial and coronal planes. Spiral CT without contrast through the cervical spine was formatted in 3 planes. Weight-based protocol using automatic tube modulation was used to optimize exposure parameters. CTDIvol Body: 17.10mGy, DLP Body: 418 mGy*cm. CTDIvol Head: 39.80 mGy, DLP Head: 672 mGy*cm. COMPARISON: 02/14/2024, 02/10/2024, 02/04/2024. FINDINGS: BRAIN and EXTRA-AXIAL SPACES: No parenchymal hemorrhage, midline shift or mass effect. Echevarria-white matter differentiation is well preserved. No acute infarct. Negative insular ribbon sign. Atherosclerotic vascular calcification ofthe carotid arteries but negative hyperdense vessel sign. Ventricles, sulci and basilar cisterns are normal. No white matter lesions. No subarachnoid hemorrhage, subdural or epidural collections. CALVARIUM, SKULL BASE AND SOFT TISSUES: No fractures or suspicious bony lesions. Mild hyperostosis frontalis interna. The paranasal sinuses and mastoid air cells are clear. Visualized orbits and globes are intact. The extracranial soft tissues are unremarkable. CERVICAL SPINE: No fracture. No acute osseous abnormalities. Bulky anterior ossification of the anterior longitudinal ligament compatible with DISH which is incomplete at the C4/5 level with air in the disc space extending anteriorly into the incomplete osseous spur similar to previous exam. OTHER BONES: No acute abnormality. CERVICAL SOFT TISSUES AND LUNG APICES: Clear lung apices. A few well-circumscribed subcentimeter hypodensities scattered throughout the thyroid gland, not large enough to warrant dedicated imaging follow-up. IMPRESSION: No acute intracranial abnormality. No acute fracture of the cervical spine. I have personally reviewed the images and I agree with this report. WSN: [id number] Ordering Physician: Arias Hyatt Dictated By: Ananda Allen MD Dictated Date/Time: 02/15/24 11:22 a Reviewed By: Mark Montoya MD Signed By: Mark Montoya MD Signed Date/Time: 02/15/24 11:27 am Transcribed By: RANI Transcribed Date/Time: 02/15/24 11:08 am * Exam Date Time Procedure Performing Provider Status 02/15/24 10:[address] Head/Brain W/O Contrast Yenni Pappas (Verified) Notes: (CT Head/Brain W/O Contrast) Reason For Exam: Trauma RESULT: CT Head/Brain W/O Contrast CT Head/Brain W/O Contrast, CT Cervical Spine W/O Contrast Hx of Present Illness: pt arrives via EMS from residential for a unwitnessed fall, per staff pt was in bathroom washing hands and they heard a thud. Pt complaining of head and neck pain, placed in [facility]. Pt discharged last night, hx of schizophrenia and bipolar at baseline; Reason: Trauma; Clinical Question(s): Hematoma; TECHNIQUE: Incremental CT without contrast through the head was formatted in axial and coronal planes. Spiral CT without contrast through the cervical spine was formatted in 3 planes. Weight-based protocol using automatic tube modulation was used to optimize exposure parameters. CTDIvol Body: 17.10mGy, DLP Body: 418 mGy*cm. CTDIvol Head: 39.80 mGy, DLP Head: 672 mGy*cm. COMPARISON: 02/14/2024, 02/10/2024, 02/04/2024. FINDINGS: BRAIN and EXTRA-AXIAL SPACES: No parenchymal hemorrhage, midline shift or mass effect. Echevarria-white matter differentiation is well preserved. No acute infarct. Negative insular ribbon sign. Atherosclerotic vascular calcification ofthe carotid arteries but negative hyperdense vessel sign. Ventricles, sulci and basilar cisterns are normal. No white matter lesions. No subarachnoid hemorrhage, subdural or epidural collections. CALVARIUM, SKULL BASE AND SOFT TISSUES: No fractures or suspicious bony lesions. Mild hyperostosis frontalis interna. The paranasal sinuses and mastoid air cells are clear. Visualized orbits and globes are intact. The extracranial soft tissues are unremarkable. CERVICAL SPINE: No fracture. No acute osseous abnormalities. Bulky anterior ossification of the anterior longitudinal ligament compatible with DISH which is incomplete at the C4/5 level with air in the disc space extending anteriorly into the incomplete osseous spur similar to previous exam. OTHER BONES: No acute abnormality. CERVICAL SOFT TISSUES AND LUNG APICES: Clear lung apices. A few well-circumscribed subcentimeter hypodensities scattered throughout the thyroid gland, not large enough to warrant dedicated imaging follow-up. IMPRESSION: No acute intracranial abnormality. No acute fracture of the cervical spine. I have personally reviewed the images and I agree with this report. WSN: [id number] Ordering Physician: Arias Hyatt Dictated By: Ananda Allen MD Dictated Date/Time: 02/15/24 11:22 a Reviewed By: Mark Montoya MD Signed By: Mark Montoya MD Signed Date/Time: 02/15/24 11:27 am Transcribed By: RANI Transcribed Date/Time: 02/15/24 11:08 am Vital Signs Most recent to oldest [Reference Range]: 1 2 3 Oxygen Saturation [94-100 %] 100 % (02/15/24 4:00 PM) 100 % (02/15/24 2:00 PM) 100 % (02/15/24 12:40 PM) Pulse Rate [55-90 bpm] 88 bpm (02/15/24 4:00 PM) 87 bpm (02/15/24 2:00 PM) 93 bpm *H* (02/15/24 12:40 PM) Blood Pressure [90-138/55-84 mm Hg] 105/64mm Hg (02/15/24 4:00 PM) 114/63mm Hg (02/15/24 2:00 PM) 118/71mm Hg (02/15/24 12:40 PM) Respiratory Rate [16-30 br/min] 16 br/min (02/15/24 4:00 PM) 20 br/min (02/15/24 2:00 PM) 24 br/min (02/15/24 12:40 PM) Temperature [96.8-100.4 DegF] 97.8 DegF (02/15/24 4:00 PM) 97.8 DegF (02/15/24 12:40 PM) 98.1 DegF (02/15/24 9:29 AM) Mode of Delivery (Oxygen) Room air (02/15/24 4:00 PM) Room air (02/15/24 2:00 PM) Room air (02/15/24 12:40 PM) Blood pressure sites Arm, left (02/15/24 12:40 PM) Temperature Route Oral (02/15/24 4:00 PM) Oral (02/15/24 12:40 PM) Oral (02/15/24 9:29 AM) Social History Social History Type Response Smoking Status Former smoker, quit more than 30 days ago entered on: 09/27/20 Sex EKG study * Event Display: ECG 12-Lead Authored Date: Please click on pdf link to open report * Event Display: ECG 12-Lead Authored Date: Ventricular Rate: 101 BPM Atrial Rate: 101 BPM P-R Interval: 154 ms QRS Duration: 66 ms Q-T Interval: 326 ms QTC Calculation(Bazett): 422 ms P [place]: 53 degrees R [place]: -23 degrees T [place]: 30 degrees Sinus tachycardia Minimal voltage criteria for LVH, may be normal variant ( R in aVL ) Inferior infarct , age undetermined Abnormal ECG When compared with ECG of 14-FEB-2024 17:11, Inferior infarct is now Present Confirmed by Rick Verma ([id number]) on 02/15/2024 10:47:36 AM Crosby: Rick Verma Patient Care team information Care Team Personnel Name: Ana María Santo MD Position: [facility] Physician - Primary Care Member Role: PCP Address: Address: [address] [place] [address] [address] [place] [address]- Name: Sole RN, Alexandra Position: [facility] RN Member Role: Primary Care Nurse Name: Lawrence Cano RN Position: [facility] RN Member Role: Primary Care Nurse Name: Nayana Bradshaw RN Position: [facility] RN Member Role: Primary Care Nurse Name: Ana María Espino RN Position: [facility] RN Member Role: Primary Care Nurse Name: Raji Somers RN Position: [facility] RN Member Role: Primary Care Nurse Name: Ulisses Barboza Position: [facility] RN Member Role: Primary Care Nurse Name: Dahiana Thrasher RN Position: [facility] ED RN W/OE and Tasks Member Role: Primary Care Nurse Name: Shira Ewing RN Position: [facility] RN Member Role: Primary Care Nurse Name: Rick Chi RN Position: [facility] RN Member Role: Primary Care Nurse Name: Maggi Fagan RN Position: [facility] ED RN W/OE and Tasks Member Role: Primary Care Nurse Name: Marlo Davies RN Position: [facility] RN Member Role: Primary Care Nurse Name: Moni Rodriguez Position: [facility] RN Member Role: Primary Care Nurse Name: Lawson Rivers RN Position: [facility] RN Supv Member Role: Primary Care Nurse Name: Mark Mccullough RN Position: [facility] RN Member Role: Primary Care Nurse Name: Ana María Ugarte RN Position: [facility] RN Member Role: Primary Care Nurse Name: Nayana Reyes RN Position: [facility] RN Member Role: Primary Care Nurse Name: Capo Sales RN Position: [facility] RN Member Role: Primary Care Nurse Name: Yenni Medellin RN Position: [facility] RN Member Role: Primary Care Nurse Name: Anna Cespedes RN Position: [facility] RN Member Role: Primary Care Nurse Name: Gabino Cespedes RN Position: [facility] RN Member Role: Primary Care Nurse Care Team Related Persons Name: MARK CLAY Address: home [address] [place] [address] [address] [place] [address] Name: CARE HOME, LORI Name: DORIS KNUTSON Address: home [address] [place] [address]
--- OUTSIDE RECORDS SUMMARY | 2024-02-24 19:45 | XMS_ITS | Continuity of Care Document ---
Author Organization [facility] ter Address [address] [place] [address]- Care Team Providers Care Broiler Chef Or Cook Name Role Phone Sidney Jackson MD Primary Care Physician [phone] Encounter [facility] Date(s): 01/10/24 - 01/10/[address] [address]- Encounter Diagnosis Unsteady gait when walking(Final) - 01/10/24 Discharge Disposition: A-D/C Home Attending Physician: Jose Miguel Everett MD Admitting Physician: Jose Miguel Everett MD Referring Physician: Not on Staff, Referring MD Allergies, Adverse Reactions, Alerts Substance Reaction Severity Status ibuprofen Active haloperidol Active lithium Active penicillin Active Benadryl Active Bactrim DS 1 acute renal failure Active Apples Active Grapes Active 1had episodes of acute renal failure during admission to [facility] -- resolved both times off Bactrim [...] tablet, 0 Refills, Maintenance, 12/31/23 8:14:00EDT, Tablet, [facility], Partial fill upon patient request if the prescription is for a schedule II opioid drug., 165, cm, 12/30/23 20:24:00... Start Date: 12/31/23 Stop Date: 01/30/24 Status: Ordered benztropine 0.5 mg oral tablet 0.5 mg, 1, tablet, By Mouth, 2 times a day, # 60 tablet, Refills 0, Tot. Refills 0, Maintenance, 12/31/23 8:15:00 EDT, Route to Pharmacy Electronically, [facility], Partial fill upon patient request if the prescription is for a schedule II o... Start Date: 12/31/23 Stop Date: 01/30/24 Status: Ordered cetirizine 5 mg oral tablet 1 tablet = 5 mg, By Mouth, Daily at bedtime, PRN Other, allergy symptoms, # 30 tablet, 0 Refills, Maintenance, 12/31/23 8:15:00 EDT, Tablet, [facility], Partial fill upon patient request ifthe prescription is for a schedule II opioid drug.,... Start Date: 12/31/23 Stop Date: 01/30/24 Status: Ordered cholecalciferol 1000 intl units oral tablet 1 tablet = 25 mcg, By Mouth, Daily, # 30 tablet, 0 Refills, Maintenance, 12/31/23 8:15:00 EDT, Tablet, [facility], Partial fill upon patient request if the prescription is for a schedule IIopioid drug., 165, cm, 12/30/23 20:24:00 EDT, Heigh... Start Date: 12/31/23 Stop Date: 01/30/24 Status: Ordered clozapine 100 mg oral tablet See Instructions, 250 (2.5 tablets) mg By Mouth Daily at bedtime 30 days, # 75 tablet, 0 Refills, Maintenance, 12/31/23 8:16:00 EDT, Tablet, [facility], Partial fill upon patient request ifthe prescription is for a schedule II opioid drug.,... Start Date: 12/31/23 Status: Ordered divalproex sodium 500 mg oral enteric coated tablet 3 tablet = 1,500 mg, By Mouth, Daily at bedtime, # 90 tablet, 0 Refills, Maintenance, 12/31/23 8:17:00 EDT, Tablet, [facility], Partial fill upon patient request if the prescription is for a schedule II opioid drug., 165, cm, 12/30/23 20:24:... Start Date: 12/31/23 Stop Date: 01/30/24 Status: Ordered docusate sodium 100 mg oral capsule 100 mg, 1, capsule, By Mouth, 2 times a day, PRN, # 60 capsule, Refills 0, Tot. Refills 0, Maintenance, Constipation, 12/31/23 8:18:00 EDT, Route to Pharmacy Electronically, [facility], Partial fill upon patient request if the prescription i... Start Date: 12/31/23 Stop Date: 01/30/24 Status: Ordered FLUoxetine 20 mg oral capsule 20 mg, 1, capsule, By Mouth, Daily, # 30 capsule, Refills 0, Tot. Refills 0, Maintenance, 12/31/23 8:18:00 EDT, Route to Pharmacy Electronically, [facility], Partial fill upon patient request if the prescription is for a schedule II opioid d... Start Date: 12/31/23 Stop Date: 01/30/24 Status: Ordered hydrOXYzine pamoate 25 mg oral capsule 1 capsule = 25 mg, By Mouth, 3 times a day, PRN Anxiety, for 30 days, # 90 capsule, 0 Refills, Acute 01/30/24 9:45:00 EDT, 12/31/23 9:45:00 EDT, Capsule, [facility], Partial fill upon patient request if the prescription is for a schedule II... Start Date: 12/31/23 Stop Date: 01/30/24 Status: Ordered Maalox Plus Liquid 30 mL, [...] 0 Refills, Maintenance, 12/31/23 8:19:00 EDT, Tablet, [facility], Partial fill upon patient request if [...] 12/31/23 8:20:00 EDT, Route to Pharmacy Electronically, [facility], Partial fill upon patient request if [...] Active UTI (urinary tract infection) Confirmed Active Vital Signs Most recent to oldest [Reference Range]: 1 2 Oxygen Saturation [94-100 %] 98 % (01/10/24 10:31 AM) 100 % (01/10/24 2:30 AM) Pulse Rate [55-90 bpm] 69 bpm (01/10/24 10:31 AM) 98 bpm *H* (01/10/24 2:30 AM) Blood Pressure [90-138/55-84 mm Hg] 112/ 69mm Hg (01/10/24 10:31 AM) 123/73mm Hg (01/10/24 2:30 AM) Respiratory Rate [16-30 br/min] 16 br/mi n (01/10/24 10:31 AM) 17 br/min (01/10/24 2:30 AM) Temperature [96.8-100.4 DegF] 98.1 DegF (01/10/24 2:30 AM) Mode of Delivery (Oxygen) Room air (01/10/24 10:31 AM) Room air (01/10/24 2:30 AM) Blood pressure sites Arm, right (01/10/24 10:31 AM) Arm, right (01/10/24 2:30 AM) Temperature Route Oral (01/10/24 2:30 AM) Social History Social History Type Response Smoking Status Former smoker, quit more than 30 days ago entered on: 09/27/20 Sex Patient Care team information Care Team Personnel Name: Alexandra Whipple RN Position: [facility] RN Member Role: Primary Care Nurse Name: Lawrence Cano RN Position: [facility] RN Member Role: Primary Care Nurse Name: Nayana Bradshaw RN Position: [facility] RN Member Role: Primary Care Nurse Name: Ana María Espino RN Position: [facility] RN Member Role: Primary Care Nurse Name: Raji Somers RN Position: [facility] RN Member Role: Primary Care Nurse Name: Ulisses Barboza Position: S RN Member Role: Primary Care Nurse Name: Dahiana Thrasher RN Position: [facility] ED RN W/OE and Tasks Member Role: Primary Care Nurse Name: Shira Ewing RN Position: [facility] RN Member Role: Primary Care Nurse Name: Rick Chi RN Position: [facility] RN Member Role: Primary Care Nurse Name: Maggi Fagan RN Position: [facility] ED RN W/OE and Tasks Member Role: Primary Care Nurse Name: Marlo Davies RN Position: [facility] RN Member Role: Primary Care Nurse Name: Moni Rodriguez Position: [facility] RN Member Role: Primary Care Nurse Name: Lawson Rivers RN Position: [facility] RN Supv Member Role: Primary Care Nurse Name: Mark Mccullough RN Position: [facility] RN Member Role: Primary Care Nurse Name: Sidney Jackson MD Position: [facility] Physician - Primary Care Member Role: PCP Address: Address: [address] [place] [address], [address] [place], [place] [address] Name: Ana María Ugarte RN Position: [facility] RN Member Role: Primary Care Nurse Name: Nayana Reyes RN Position: [facility] RN Member Role: Primary Care Nurse Name: Capo Sales RN Position: [facility] RN Member Role: Primary Care Nurse Name: Yenni Medellin RN Position: [facility] RN Member Role: Primary Care Nurse Name: Anna Cespedes RN Position: [facility] RN Member Role: Primary Care Nurse Name: Gabino Cespedes RN Position: [facility] RN Member Role: Primary Care Nurse Care Team Related Persons Name: MARK CLAY Address: home [address] [place] [address] Name: HALF-WAY, LORI Name: DORIS KNUTSON Address: home [address] [place] [address]
--- OUTSIDE RECORDS SUMMARY | 2024-02-24 19:45 | XMS_ITS | Continuity of Care Document ---
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 Name Role Phone Sidney Jackson MD Primary Care Physician Encounter [facility] Date(s): 05/04/21 - 09/01/21 [facility] [address] [place] [address]- Attending Physician: Sara Solorio MD Admitting Physician: Sara Solorio MD Referring Physician: Sidney Jackson MD Allergies, Adverse Reactions, Alerts Substance Reaction Severity Status ibuprofen Active haloperidol Active lithium Active penicillin Active Benadryl Active Bactrim DS 1 acute renal failure Active [place] Active Glutens Grapes Active Apples Active Grapes Active 1had episodes of acute renal failure during admission to [facility] -- resolved both times off Bactrim and so have added this to list of meds to avoid. Immunizations Given and Recorded Vaccine Date Status Refusal Reason influenza virus vaccine, inactivated 1 07/11/17 Gi raj influenza virus vaccine, inactivated 10/22/09 Give n influenza virus vaccine, inactivated 06/25/08 Give n FluLaval (oldterm) 06/10/10 Given influ virus vac, H1N1, inactive(oldterm) 2 07/16/09 Given Tet/Diphth/Acel, Pertussis (oldterm) 3 08/28/07 Gi raj Influenza Virus Vaccine (oldterm) 4 07/25/07 Given Influenza Virus Vaccine (oldterm) 06/27/06 Given Pneumococcal Vaccine (oldterm) 07/29/99 Given tetanus-diphtheria toxoids (Td) 07/10/97 Given 1Early/Late Reason: Med Not Available 2Admin Note: [employer] 3Admin Note: SANOFI PASTEUR 4Admin Note: SANOFI PASTEUR Medications atorvastatin 20 mg oral tablet 1 tablet = 20 mg, By Mouth, Daily, # 30 tablet, 1 Refills, Maintenance, 06/08/21 22:14:00 EDT, Tablet, [facility], Partial fill upon patient request if the prescription is for a schedule II opioid drug., 160, cm, 06/08/21 19:3... Start Date: 06/08/21 Status: Ordered benztropine 0.5 mg oral tablet 0.5 mg, 1, tablet, By Mouth, 2 times a day, # 60 tablet, Refills 1, Tot. Refills 1, Maintenance, 06/08/21 22:12:00 EDT, Route to Pharmacy Electronically, [facility], Partial fill upon patient request if the prescription is for... Start Date: 06/08/21 Status: Ordered clozapine 100 mg oral tablet 3 tablet = 300 mg, By Mouth, Daily at bedtime, 0 Refills, Maintenance, 08/10/21 9:01:00 EST, Tablet, Partial fill upon patient request if the prescription is for a schedule II opioid drug. Start Date: 08/10/21 Status: Ordered clozapine 100 mg oral tablet 3 tablet = 300 mg, By Mouth, Daily at bedtime, # 90 tablet, 0 Refills, Maintenance, 08/10/21 10:27:00 EST, [facility], Partial fill upon patient request if the prescription is for a schedule II opioid drug., 165, cm, 08/09/21... Start Date: 08/10/21 Status: Ordered DDAVP 0.1 mg oral tablet 2 tablet = 0.2 mg, By Mouth, Daily at bedtime, # 60 tablet, 1 Refills, Maintenance, 06/08/21 22:15:00 EDT, Tablet, [facility], Partial fill upon patient request if the prescription is for a schedule II opioid drug., 160, cm, 0... Start Date: 06/08/21 Status: Ordered divalproex sodium 500 mg oral tablet, extended release 3 tablet = 1,500 mg, By Mouth, Daily at bedtime, # 90 tablet, 1 Refills, Maintenance, 06/08/21 22:15:00 EDT, ER Tablet, [facility], Partial fill upon patient request if the prescription is for a schedule II opioid drug., 160,... Start Date: 06/08/21 Status: Ordered fluPHENAZine decanoate 25 mg/mL injectable solution = 25 mg, Intramuscular, Every 21 days, Due 06/16/2021, # 1 each, 1 Refills, Maintenance, 06/08/21 22:20:00 EDT, [facility]-, Partial fill upon patient request if the prescription is for a schedule II opioid drug., 160, cm, 06/08... Start Date: 06/08/21 Status: Ordered fluPHENAZine decanoate 25 mg/mL injectable solution = 25 mg, Intramuscular, Every 21 days, next due 08/22/2021, # 1 kit, 0 Refills, Maintenance, 08/09/21 14:46:00 EST, [facility], Partial fill upon patient request if the prescription is for a schedule II opioid drug., 165, cm, 1... Start Date: 08/09/21 Status: Ordered glycopyrrolate 1 mg oral tablet 1 mg, 1, tablet, By Mouth, Daily at bedtime, # 30 tablet, Refills 1, Tot. Refills 1, Maintenance, 06/08/21 22:15:00 EDT, Route to Pharmacy Electronically, [facility], Partialfill upon patient request if the prescription is fo... Start Date: 06/08/21 Status: Ordered hydrocortisone 1% topical lotion See Instructions, Topically Daily, # 60 mL, 1 Refills, Maintenance, 06/08/21 22:16:00 EDT, Lotion, [facility], Partial fill upon patient request if the prescription is for a schedule II opioid drug., Topically Daily, 160, cm,... Start Date: 06/08/21 Status: Ordered insulin glargine 100 u/ml subcutaneous solution = 35 units, Subcutaneous Injection, Daily at bedtime, # 10 mL, 1 Refills, Maintenance, 06/08/21 22:16:00 EDT, Injection, [facility], Partial fill upon patient request if the prescription is for a schedule II opioid drug., 160,... Start Date: 06/08/21 Status: Ordered insulin lispro 100 u/ml subcutaneous injection 2-14 units, Subcutaneous Injection, 3 times a day before meals, << Sliding Scale Comments >> 70 - 119 2 units Call if less than 70 120 - 169 4 units 170 - 219 6 units 220 - 269 8 units 270 - 319 10 units 320 - 369 12 units 370... Start Date: 06/08/21 Status: Ordered LORazepam 0.5 mg oral tablet 1 tablet = 0.5 mg, By Mouth, 3 times a day, PRN Anxiety, 0 Refills, Maintenance, 06/08/21 22:23:00 EDT, Tablet, Partial fill upon patient request if the prescription is for a schedule II opioid drug. Start Date: 06/08/21 Status: Ordered melatonin 10 mg oral tablet 1 tablet = 10 mg, By Mouth, Daily at bedtime, # 30 tablet, 1 Refills, Maintenance, 06/08/21 22:17:00 EDT, Tablet, [facility]-, Partial fill upon patient request if the prescription is for a schedule II opioid drug., 160, cm, 09... Start Date: 06/08/21 Status: Ordered metFORMIN 500 mg oral tablet 1 each = 500 mg, By Mouth, 2 times a day, # 60 tablet, 1 Refills, Maintenance, 06/08/21 22:18:00 EDT, Tablet, [facility]-, Partial fill upon patient request if the prescription is for a schedule II opioid drug., 160, cm, ... Start Date: 06/08/21 Status: Ordered pantoprazole 20 mg oral delayed release tablet = 20 mg, By Mouth, Daily, # 30 capsule, 1 Refills, Maintenance, 06/08/21 22:18:00 EDT, EC Tablet, 160, cm, 06/08/21 19:32:00 EDT, Height, 99.5, kg, 05/09/21 12:08:00 EDT, Dry Weight Start Date: 06/08/21 Status: Ordered perphenazine 4 mg oral tablet 4 mg, 1, tablet, By Mouth, 3 times a day, PRN, # 90 tablet, Refills 1, Tot. Refills 1, Maintenance,Agitation, 06/08/21 22:24:00 EDT, Route to Pharmacy Electronically, [facility], Partial fill upon patient request if the presc... Start Date: 06/08/21 Status: Ordered Problem List Condition Effective Dates Status Health Status Inform ant Amenorrhea(Confirmed) Active Bipolar disorder(Confirmed) Active Body mass index 30+ - obesity(Confirmed) Active Chronic renal impairment(Confirmed) Active Hyperlipidemia(Confirmed) Active Primary hypertension(Confirmed) Active Schizoaffective disorder(Confirmed) Active Type II diabetes mellitus(Confirmed) Active Social History Social History Type Response Smoking Status Former smoker, quit more than 30 days ago entered on: 09/27/20 Sex
--- OUTSIDE RECORDS SUMMARY | 2024-02-24 19:45 | XMS_ITS | Continuity of Care Document ---
Author Organization [facility] Address [address], [address] [place] [address]- Care Team Providers Care Traffic Manager Name Role Phone Sidney Jackson MD Primary Care Physician [phone] Encounter [facility] Date(s): 04/12/23 - [facility] [address], [address] [place] [address]- Allergies, Adverse Reactions, Alerts Substance Reaction Severity Status ibuprofen Active haloperidol Active lithium Active penicillin Active Benadryl Active Bactrim DS 1 acute renal failure Active Apples Active Grapes Active 1had episodes of acute renal failure during admission to [facility] -- resolved both times off Bactrim [...] Pharmacy Electronically, [facility], Partialfill upon patient request if the prescription [...] 0 Refills, Maintenance, 02/07/23 12:52:00 EDT, Tablet, [facility] 12:51:00 EDT, [facility]- , Partial fill upon patient request ifthe prescription [...] 2 Refills, Maintenance, 02/07/23 12:58:00 EDT, Solution, [facility]- , Partial fill upon patient request if [...] Team Personnel Name: Lawrence Cano RN Position: [facility] RN Member Role: Primary Care Nurse Name: Nayana Bradshaw RN Position: [facility] RN Member Role: Primary Care Nurse Name: Ana María Espino RN Position: [facility] RN Member Role: Primary Care Nurse Name: Raji Somers RN Position: [facility] RN Member Role: Primary Care Nurse Name: Ulisses Barboza Position: [facility] RN Member Role: Primary Care Nurse Name: Dahiana Thrasher RN Position: [facility] ED RN W/OE and Tasks Member Role: Primary Care Nurse Name: Rick Chi RN Position: S RN Member Role: Primary Care Nurse Name: Maggi Fagan RN Position: [facility] ED RN W/OE and Tasks Member Role: Primary Care Nurse Name: Lawson Rivers RN Position: [facility] RN Supv Member Role: Primary Care Nurse Name: Mark Mccullough RN Position: [facility] RN Member Role: Primary Care Nurse Name: Sidney Jackson MD Position: [facility] Physician - Primary Care Member Role: PCP Address: Address: [address], [address] [place], [place] [address] Name: Nayana Reyes RN Position: S RN Member Role: Primary Care Nurse Name: Anna Cespedes RN Position: [facility] RN Member Role: Primary Care Nurse Name: Gabino Cespedes RN Position: [facility] RN Member Role: Primary Care Nurse Care Team Related Persons Name: BUZZ CASTELLANOS Address: [address] [place] [address] Name: MARK CLAY Address: home [address] [place] [address] Name: DORIS KNUTSON Address: home [address] [place] [address]
--- OUTSIDE RECORDS SUMMARY | 2024-02-24 19:46 | XMS_ITS | Continuity of Care Document ---
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 Name Role Phone Sidney Jackson MD Primary Care Physician Encounter [facility] [place](s[place] 01/05/23 - 05/12/23 [facility] [address] [place] [id number]- Attending Physician: Joe Ayala MD Admitting Physician: Joe Ayala MD Referring Physician: Sidney Jackson MD Allergies, Adverse Reactions, Alerts Substance Reaction Severity Status ibuprofen Active haloperidol Active lithium Active penicillin Active Benadryl Active Bactrim DS 1 acute renal failure Active Apples Active Grapes Active 1had episodes of acute renal failure during [facility] -- resolved both times off [...] 02/07/23 12:50:00 EDT, Route to Pharmacy Electronically, [facility], Partialfill upon patient request if the prescription is fo... Start Date: 02/07/23 Status: Ordered clozapine 100 mg oral tablet 3 tablet = 300 mg, By Mouth, Daily at bedtime, # 90 tablet, 1 Refills, Maintenance, 02/07/23 12:50:00 EDT, [facility], Partial fill upon patient request if the prescription is for a schedule II opioid drug., 165, cm, 01/31/23... Start Date: 02/07/23 Status: Ordered desmopressin 0.2 mg oral tablet 1 tablet = 0.2 mg, By Mouth, Daily at bedtime, # 30 tablet, 0 Refills, Maintenance, 02/07/23 12:52:00 EDT, Tablet, [facility], Partial fill upon patient request if the prescription is for a schedule II opioid drug., 165, cm, 0... Start Date: 02/07/23 Status: Ordered divalproex sodium 500 mg oral tablet, extended release 3 tablet = 1,500 mg, By Mouth, Daily at bedtime, # 90 tablet, 1 Refills, Maintenance, 02/07/23 12:51:00 EDT, ER Tablet, [facility], Partial fill upon patient request if the prescription is for a schedule II opioid drug., 165,... Start Date: 02/07/23 Status: Ordered docusate sodium 100 mg oral tablet = 100 mg, By Mouth, 2 times a day, # 60 tablet, 0 Refills, Maintenance, 02/07/23 12:51:00 EDT, Tablet, [facility], Partial fill upon patient request if the prescription is for a schedule II opioid drug., 165, cm, 01/31/23 0:39... Start Date: 02/07/23 Status: Ordered fluPHENAZine decanoate 25 mg/mL injectable solution = 25 mg, Intramuscular, Every 21 days, Last given 01/26/23 due 02/16/23, # 1 kit, 1 Refills, Maintenance, 02/07/23 12:51:00 EDT, [facility]- , Partial fill upon patient request ifthe [...] 2 Refills, Maintenance, 02/07/23 12:58:00 EDT, Solution, [facility]- , Partial fill upon patient request if the prescription is for a schedule II opioid drug., 165,... Start Date: 02/07/23 Status: Ordered metFORMIN 500 mg oral tablet 1 each = 500 mg, By Mouth, 2 times a day, # 60 tablet, 1 Refills, Maintenance, 02/07/23 12:51:00 EDT, Tablet, [facility]-, Partial fill upon patient request if the prescription is for a schedule II opioid drug., 165, cm, ... Start Date: 02/07/23 Status: Ordered trospium 60 mg oral capsule, extended release 1 capsule = 60 mg, By Mouth, Daily in AM, # 30 capsule, 11 Refills, Maintenance, 04/12/23 11:23:00 EDT, CR Capsule, [facility]-, Partial fill upon patient request if the [...] 30 days ago entered on: 09/27/20 Sex Note * Tsering Tavarez NP: PERFORM Event Display: Discharge/Transfer Note Hospital Authored Date: Patient: ??JADYN LINN ? Age:??52 Years?Sex:??Female?:??1970?? Patient Information Discharge Location: *[facility] Primary Care Physician: Sidney Jackson MD Admit Date/Time:?? Discharge Disposition Discharge Disposition: Home: No Services Discharge Diagnosis Schizoaffective Disorder, bipolar type _ Discharge Medications Benztropine (benztropine 1 mg oral tablet)?1?Milligram?1?tablet?By Mouth?Daily atbedtime Clozapine (clozapine 100 mg oral tablet)?3?tab(s)?300?Milligram?By Mouth?Daily atbedtime Desmopressin (desmopressin 0.2 mg oral tablet)?1?tab(s)?0.2?Milligram?By Mouth?Daily at bedtime Divalproex Sodium (divalproex sodium 500 mg oral tablet, extended release)?3?tab(s)?1,500?Milligram?By Mouth?Daily at bedtime Docusate (docusate sodium 100 mg oral tablet)?100?Milligram?By Mouth?2 times a day Durable Medical Equipment (Freestyle Lancets)?See Instructions?for 30?Days?use as directed for Type 2 Diabetes Mellitus Durable Medical Equipment (Freestyle Lite Test Strips)?See Instructions?for 30?Days?useas directed for Type 2 Diabetes Mellitus Fluphenazine (fluPHENAZine decanoate 25 mg/mL injectable solution)?25?Milligram?Intramuscular?Every 21 days?Last given 01/26/23 due 02/16/23 Insulin Glargine (Lantus Solostar Pen 100 units/mL subcutaneous solution)?28?unit(s)?Subcutaneous Injection?Daily at bedtime Metformin (metFORMIN 500 mg oral tablet)?1?Each?500?Milligram?By Mouth?2 times a day Oxybutynin (oxybutynin 5 mg/24 hours oral tablet, extended release)?1?tab(s)?5?Milligram?By Mouth?Daily ? Medications Started None Medications Discontinued None Doses Changed None Allergies Allergies ?(Active and Proposed Allergies Only) haloperidol? (Severity: Unknown severity, Onset: Unknown) Benadryl? (Severity: Unknown severity, Onset: Unknown) Grapes? (Severity: Unknown severity, Onset: Unknown) ibuprofen? (Severity: Unknown severity, Onset: Unknown) Apples? (Severity: Unknown severity, Onset: Unknown) lithium? (Severity: Unknown severity, Onset: Unknown) Bactrim DS? (Severity: Unknown severity, Onset: Unknown) ?Reactions: acute renal failure ?Comments: had episodes of acute renal failure during admission to [facility] -- resolved both times off Bactrim and so ?have added this to list of meds to avoid. penicillin? (Severity: Unknown severity, Onset: Unknown) ? Future Appointments Sunday 3:40 PM EDT ?? With: Kyle FRANZ, Carolina Jacobs Where: [facility] [address] [place] [address]- Status: Pending Hospital Course ?? Patient admitted to [facility] for psychiatric decompensation. She was tx to the ER after a fall and hypotension. ?? Objective Vital Signs?? No qualifying data available. ?? . Physical Exam Pending Results No Pending Results Home Health Face to Face ^HomeHealthFTF Results Discharge Labs No labs resulted during this visit.? _ minutes spent on discharge Patient Care team information Care Team Personnel Name: Lawrence Cano RN Position: [facility] RN Member Role: Primary Care Nurse Name: Nayana Bradshaw RN Position: [facility] RN Member Role: Primary Care Nurse Name: Ana María Espino RN Position: S RN Member Role: Primary Care Nurse Name: Raji Somers RN Position: [facility] RN Member Role: Primary Care Nurse Name: Ulisses Barboza Position: S RN Member Role: Primary Care Nurse Name: Dahiana Thrasher RN Position: [facility] ED RN W/OE and Tasks Member Role: Primary Care Nurse Name: Alon RN, Rick Larson Position: [facility] RN Member Role: Primary Care Nurse Name: Maggi Fagan RN Position: [facility] ED RN W/OE and Tasks Member Role: Primary Care Nurse Name: Lawson Rivers RN Position: [facility] RN Supv Member Role: Primary Care Nurse Name: Mark Mccullough RN Position: [facility] RN Member Role: Primary Care Nurse Name: Sidney Jackson MD Position: [facility] Physician - Primary Care Member Role: PCP Address: Address: [address] [place] [address], [address] [place], [place] [address] Name: Nayana Reyes RN Position: [facility] RN Member Role: Primary Care Nurse Name: Anna Cespedes RN Position: [facility] RN Member Role: Primary Care Nurse Name: Gabino Cespedes RN Position: [facility] RN Member Role: Primary Care Nurse Care Team Related Persons Name: BUZZ CASTELLANOS Address: home [address] [place] [address] Name: MARK CLAY Address: home [address] [place] [address] [address] [place] [address] Name: DORIS KNUTSON Address: home [address] [place] [address]
--- OUTSIDE RECORDS SUMMARY | 2024-02-24 19:46 | XMS_ITS | Continuity of Care Document ---
Author Organization [facility] Franky lawrences Address [address], [address] [place] [address]- Care Team Providers Care Supervisor Edging Name Role Phone Manuel PADILLA, Sidney Trejo Primary Care Physician [place] [facility] [place]22 - 04/30/22 [facility] [address], [address] [place] [address]- Attending Physician: Luanne Candelario Admitting Physician: AdmtrLuanne Referring Physician: AdmtrLuanne Allergies, Adverse Reactions, Alerts Substance Reaction Severity Status ibuprofen Active haloperidol Active lithium Active penicillin Active Benadryl Active Bactrim DS 1 acute renal failure Active Apples Active Grapes Active 1had episodes of acute renal failure during admission to [facility] -- resolved both times off Bactrim [...] Daily, # 30 tablet, 1 Refills, Maintenance, 04/11/22 22:53:00 EDT, Tablet, [facility], Partial fill upon patient request if the prescription is for a schedule II opioid drug., 165kahlil, 04/11/22 12:5... Start Date: 04/11/22 Status: Ordered benztropine 0.5 mg oral tablet 0.5 mg, 1, tablet, By Mouth, 2 times a day, # 60 tablet, Refills 1, Tot. Refills 1, Maintenance, 04/11/22 22:54:00 EDT, Route to Pharmacy Electronically, [facility], Partial fill upon patient request if the prescription is for... Start Date: 04/11/22 Status: Ordered clozapine 100 mg oral tablet 3 tablet = 300 mg, By Mouth, Daily at bedtime, # 90 tablet, 1 Refills, Maintenance, 04/11/22 22:54:00 EDT, [facility], Partial fill upon patient request if the prescription is for a schedule II opioid drug., 165kahlil, 04/11/22... Start Date: 04/11/22 Status: Ordered DDAVP 0.1 mg oral tablet 2 tablet = 0.2 mg, By Mouth, Daily at bedtime, # 60 tablet, 1 Refills, Maintenance, 04/11/22 22:54:00 EDT, Tablet, [facility], Partial fill upon patient request if the prescription is for a schedule II opioid drug., 165 cm, 0... Start Date: 04/11/22 Status: Ordered divalproex sodium 500 mg oral tablet, extended release 3 tablet = 1,500 mg, By Mouth, Daily at bedtime, # 90 tablet, 1 Refills, Maintenance, 04/11/22 22:54:00 EDT, ER Tablet, [facility], Partial fill upon patient request if the prescription is for a schedule II opioid drug., 165,... Start Date: 04/11/22 Status: Ordered docusate sodium 100 mg oral tablet = 100 mg, By Mouth, 2 times a day, # 60 tablet, 1 Refills, Maintenance, 04/11/22 22:54:00 EDT, Tablet, [id number], Partial fill upon patient request if the prescription is for a schedule II opioid drug., 165, cm, 04/11/22 12:5... Start Date: 04/11/22 Status: Ordered fluPHENAZine 2.5 mg oral tablet 1 tablet = 2.5 mg, By Mouth, 3 times a day, PRN Agitation, # 90 tablet, 1 Refills, Maintenance, 04/11/22 22:55:00 EDT, [facility], Partial fill upon patient request if the prescription is for a schedule II opioid drug., 165, c... Start Date: 04/11/22 Status: Ordered fluPHENAZine decanoate 25 mg/mL injectable solution = 25 mg, Intramuscular, Every 21 days, next due: 04/19/2022, # 1 kit, 1 Refills, Maintenance, 04/11/22 22:55:00 EDT, [facility], Partial fill upon patient request if the prescription is for a schedule II opioid drug., 165, cm,... Start Date: 04/11/22 Status: Ordered glycopyrrolate 1 mg oral tablet 1 mg, 1, tablet, By Mouth, Daily at bedtime, # 30 tablet, Refills 1, Tot. Refills 1, Maintenance, 04/11/22 22:52:00 EDT, Route to Pharmacy Electronically, [facility], Partialfill upon patient request if the prescription is fo... Start Date: 04/11/22 Status: Ordered hydrocortisone 1% topical lotion See Instructions, Topically Daily, # 60 mL, 0 Refills, Maintenance, 04/11/22 22:53:00 EDT, Lotion, [facility], Partial fill upon patient request if the prescription is for a schedule II opioid drug., Topically Daily, 165, cm,... Start Date: 04/11/22 Status: Ordered insulin glargine 100 u/ml subcutaneous solution = 35 units, Subcutaneous Injection, Daily at bedtime, # 10 mL, 1 Refills, Maintenance, 04/11/22 22:55:00 EDT, Injection, [facility], Partial fill upon patient request if the prescription is for a schedule II opioid drug., 165,... Start Date: 04/11/22 Status: Ordered insulin lispro 100 u/ml subcutaneous injection 2-14 units, Subcutaneous Injection, 3 times a day before meals, << Sliding Scale Comments >> 70 - 119 2 units Call if less than 70 120 - 169 4 units 170 - 219 6 units 220 - 269 8 units 270 - 319 10 units 320 - 369 12 units 370... Start Date: 04/11/22 Status: Ordered LORazepam 0.5 mg oral tablet 1 tablet = 0.5 mg, By Mouth, 2 times a day, PRN Anxiety, 0 Refills, Maintenance, 11/30/21 21:00:00 EDT, Tablet, Partial fill upon patient request if the prescription is for a schedule II opioid drug. Start Date: 11/30/21 Status: Ordered melatonin 10 mg oral tablet 1 tablet = 10 mg, By Mouth, Daily at bedtime, # 30 tablet, 1 Refills, Maintenance, 04/11/22 22:55:00 EDT, Tablet, [facility]-, Partial fill upon patient request if the prescription is for a schedule II opioid drug., 165, cm, 07... Start Date: 04/11/22 Status: Ordered Metamucil 3.4 gm/5.2 gm oral powder for reconstitution = 1.7 Gm, By Mouth, Daily, PRN as needed for constipation, # 570 Gm, 1 Refills, Maintenance, 04/11/22 22:56:00 EDT, REC Powder, [facility]- , Partial fill upon patient request if the prescription is for a schedule II opioid drug... Start Date: 04/11/22 Status: Ordered metFORMIN 500 mg oral tablet 1 each = 500 mg, By Mouth, 2 times a day, # 60 tablet, 1 Refills, Maintenance, 11/30/21 21:00:00 EDT, Tablet, [facility], Partial fill upon patient request if the prescription is for a schedule II opioid drug., 167, cm, ... Start Date: 11/30/21 Status: Ordered pantoprazole 20 mg oral delayed release tablet = 20 mg, By Mouth, Daily, # 30 capsule, 1 Refills, Maintenance, 04/11/22 22:56:00 EDT, EC Tablet, 165, cm, 04/11/22 12:59:00 EDT, Height, 93.5, kg, 03/16/22 16:24:00 EDT, Dry Weight Start Date: 04/11/22 Status: Ordered Toviaz 4 mg oral tablet, extended release 1 tablet = 4 mg, By Mouth, Daily, # 30 tablet, 1 Refills, Maintenance, 04/11/22 22:52:00 EDT, ER Tablet, [facility], Partial fill upon patient request if the prescription is for a schedule II opioid drug., 165, cm, 04/11/22 12... Start Date: 04/11/22 Status: Ordered Problem List Condition Effective Dates Status Health Status Inform ant Amenorrhea(Confirmed) Active Bipolar disorder(Confirmed) Active Body mass index 30+ - obesity(Confirmed) Active Chronic renal impairment(Confirmed) Active Constipation(Confirmed) Active HTN - Hypertension(Confirmed) Active Hyperlipidemia(Confirmed) Active Nocturia(Confirmed) Active Obese class I(Confirmed) Active Primary hypertension(Confirmed) Active Schizoaffective disorder(Confirmed) Active Type II diabetes mellitus(Confirmed) Active Urge incontinence(Confirmed) Active Social History Social History Type Response Smoking Status Former smoker, quit more than 30 days ago entered on: 09/27/20 Sex
--- OUTSIDE RECORDS SUMMARY | 2024-02-24 19:46 | XMS_ITS | Continuity of Care Document ---
Author Organization [facility] Address [address] [place] [address]- Care Team Providers Care Engineer Of System Development Name Role Phone Manuel PADILLA, Sidney Trejo Primary Care Physician Encounter [facility] Date(s): 08/02/21 - 09/01/21 [facility] [address] [place] [address]- Attending Physician: Luanne Candelario Admitting Physician: AdmtrLuanne Referring Physician: Admtr, Ar8 Allergies, Adverse Reactions, Alerts Substance Reaction Severity Status ibuprofen Active haloperidol Active Bactrim DS 1 acute renal failure Active [place] Active Glutens Grapes Active Apples Active lithium Active penicillin Active Benadryl Active Grapes Active 1had episodes of acute renal failure during admission to [facility] -- resolved both times off Bactrim [...] 1 Refills, Maintenance, 06/08/21 22:14:00 EDT, Tablet, [facility], Partial fill upon patient request if the prescription is for a schedule II opioid drug., 160, cm, 06/08/21 19:3... Start Date: 06/08/21 Status: Ordered benztropine 0.5 mg oral tablet 0.5 mg, 1, tablet, By Mouth, 2 times a day, # 60 tablet, Refills 1, Tot. Refills 1, Maintenance, 06/08/21 22:12:00 EDT, Route to Pharmacy Electronically, [facility], Partial fill upon patient request if [...] tablet, 0 Refills, Maintenance, 08/10/21 10:27:00 EST, [facility], Partial fill upon patient request if the prescription is for a schedule II opioid drug., 165, cm, 08/09/21... Start Date: 08/10/21 Status: Ordered DDAVP 0.1 mg oral tablet 2 tablet = 0.2 mg, By Mouth, Daily at bedtime, # 60 tablet, 1 Refills, Maintenance, 06/08/21 22:15:00 EDT, Tablet, [facility], Partial fill upon patient request if the prescription is for a schedule II opioid drug., 160, cm, 0... Start Date: 06/08/21 Status: Ordered divalproex sodium 500 mg oral tablet, extended release 3 tablet = 1,500 mg, By Mouth, Daily at bedtime, # 90 tablet, 1 Refills, Maintenance, 06/08/21 22:15:00 EDT, ER Tablet, [facility], Partial fill upon patient request if the prescription is for a schedule II opioid drug., 160,... Start Date: 06/08/21 Status: Ordered fluPHENAZine decanoate 25 mg/mL injectable solution = 25 mg, Intramuscular, Every 21 days, Due 06/16/2021, # 1 each, 1 Refills, Maintenance, 06/08/21 22:20:00 EDT, [facility], Partial fill upon patient request if the prescription is for a schedule II opioid drug., 160, cm, 06/08... Start Date: 06/08/21 Status: Ordered fluPHENAZine decanoate 25 mg/mL injectable solution = 25 mg, Intramuscular, Every 21 days, next due 08/22/2021, # 1 kit, 0 Refills, Maintenance, 08/09/21 14:46:00 EST, [facility], Partial fill upon patient request if the prescription is for a schedule II opioid drug., 165, cm, 1... Start Date: 08/09/21 Status: Ordered glycopyrrolate 1 mg oral tablet 1 mg, 1, tablet, By Mouth, Daily at bedtime, # 30 tablet, Refills 1, Tot. Refills 1, Maintenance, 06/08/21 22:15:00 EDT, Route to Pharmacy Electronically, [facility], Partialfill upon patient request if the prescription is fo... Start Date: 06/08/21 Status: Ordered hydrocortisone 1% topical lotion See Instructions, Topically Daily, # 60 mL, 1 Refills, Maintenance, 06/08/21 22:16:00 EDT, Lotion, [facility], Partial fill upon patient request if the prescription is for a schedule II opioid drug., Topically Daily, 160, cm,... Start Date: 06/08/21 Status: Ordered insulin glargine 100 u/ml subcutaneous solution = 35 units, Subcutaneous Injection, Daily at bedtime, # 10 mL, 1 Refills, Maintenance, 06/08/21 22:16:00 EDT, Injection, [facility], Partial fill upon patient request if [...] 1 Refills, Maintenance, 06/08/21 22:17:00 EDT, Tablet, [facility]-, Partial fill upon patient request if the prescription is for a schedule II opioid drug., 160, cm, ... Start Date: 06/08/21 Status: Ordered metFORMIN 500 mg oral tablet 1 each = 500 mg, By Mouth, 2 times a day, # 60 tablet, 1 Refills, Maintenance, 06/08/21 22:18:00 EDT, Tablet, [facility], Partial fill upon patient request if [...] 06/08/21 22:24:00 EDT, Route to Pharmacy Electronically, [facility], Partial fill upon patient request if [...]
--- OUTSIDE RECORDS SUMMARY | 2024-02-24 19:46 | XMS_ITS | Continuity of Care Document ---
Author Organization [facility] Address [address] [place] [address]- Care Team Providers Care Audio Engineer Name Role Phone Manuel PADILLA, Sidney Trejo Primary Care Physician Encounter [facility] Date(s): 04/12/23 - 05/12/23 [facility] [address] [place] [id number]- Attending Physician: Luanne Candelario Admitting Physician: AdmtrLuanne Referring Physician: Admtr, ArJm Allergies, Adverse Reactions, Alerts Substance Reaction Severity Status ibuprofen Active haloperidol Active lithium Active penicillin Active Bactrim DS 1 acute renal failure Active Grapes Active Apples Active Benadryl Active 1had episodes of acute renal failure during admission to [facility] -- resolved both times off Bactrim [...] 02/07/23 12:50:00 EDT, Route to Pharmacy Electronically, [facility], Partialfill upon patient request if the prescription is fo... Start Date: 02/07/23 Status: Ordered clozapine 100 mg oral tablet 3 tablet = 300 mg, By Mouth, Daily at bedtime, # 90 tablet, 1 Refills, Maintenance, 02/07/23 12:50:00 EDT, [facility], Partial fill upon patient request if the prescription is for a schedule II opioid drug., 165, cm, 01/31/23... Start Date: 02/07/23 Status: Ordered desmopressin 0.2 mg oral tablet 1 tablet = 0.2 mg, By Mouth, Daily at bedtime, # 30 tablet, 0 Refills, Maintenance, 02/07/23 12:52:00 EDT, Tablet, [facility], Partial fill upon patient request if the prescription is for a schedule II opioid drug., 165, cm, 0... Start Date: 02/07/23 Status: Ordered divalproex sodium 500 mg oral tablet, extended release 3 tablet = 1,500 mg, By Mouth, Daily at bedtime, # 90 tablet, 1 Refills, Maintenance, 02/07/23 12:51:00 EDT, ER Tablet, [facility], Partial fill upon patient request if the prescription is for a schedule II opioid drug., 165,... Start Date: 02/07/23 Status: Ordered docusate sodium 100 mg oral tablet = 100 mg, By Mouth, 2 times a day, # 60 tablet, 0 Refills, Maintenance, 02/07/23 12:51:00 EDT, Tablet, [facility], Partial fill upon patient request if the prescription is for a schedule II opioid drug., 165, cm, 01/31/23 0:39... Start Date: 02/07/23 Status: Ordered fluPHENAZine decanoate 25 mg/mL injectable solution = 25 mg, Intramuscular, Every 21 days, Last given 01/26/23 due 02/16/23, # 1 kit, 1 Refills, Maintenance, 02/07/23 12:51:00 EDT, [facility]- , Partial fill upon patient request ifthe [...] 2 Refills, Maintenance, 02/07/23 12:58:00 EDT, Solution, [facility]- , Partial fill upon patient request if the prescription is for a schedule II opioid drug., 165,... Start Date: 02/07/23 Status: Ordered metFORMIN 500 mg oral tablet 1 each = 500 mg, By Mouth, 2 times a day, # 60 tablet, 1 Refills, Maintenance, 02/07/23 12:51:00 EDT, Tablet, [facility]-, Partial fill upon patient request if the prescription is for a schedule II opioid drug., 165, cm, ... Start Date: 02/07/23 Status: Ordered trospium 60 mg oral capsule, extended release 1 capsule = 60 mg, By Mouth, Daily in AM, # 30 capsule, 11 Refills, Maintenance, 04/12/23 11:23:00 EDT, CR Capsule, [facility]-, Partial fill upon patient request if [...] Team Personnel Name: Lawrence Cano RN Position: [facility] RN Member Role: Primary Care Nurse Name: Nayana Bradshaw RN Position: [facility] RN Member Role: Primary Care Nurse Name: Ana María Espino RN Position: [facility] RN Member Role: Primary Care Nurse Name: Raji Somers RN Position: [facility] RN Member Role: Primary Care Nurse Name: Ulisses Barboza Position: [facility] RN Member Role: Primary Care Nurse Name: Dahiana Thrasher RN Position: [facility] ED RN W/OE and Tasks Member Role: Primary Care Nurse Name: Rick Chi RN Position: [facility] RN Member Role: Primary Care Nurse Name: Maggi Fagan RN Position: [facility] ED RN W/OE and Tasks Member Role: Primary Care Nurse Name: Lawsno Rivers RN Position: [facility] RN Supv Member Role: Primary Care Nurse Name: Mark Mccullough RN Position: [facility] RN Member Role: Primary Care Nurse Name: Sidney Jackson MD Position: [facility] Physician - Primary Care Member Role: PCP Address: Address: [address] [place] [address], [address] [place], [place] [address] Name: Nayana Reyes RN Position: [facility] RN Member Role: Primary Care Nurse Name: Anna Cespedes RN Position: [facility] RN Member Role: Primary Care Nurse Name: Gabino Cespedes RN Position: [facility] RN Member Role: Primary Care Nurse Care Team Related Persons Name: BUZZ CASTELLANOS Address: [address] [place] [address] Name: MARK CLAY Address: home [address] [place] [address] Name: DORIS KNUTSON Address: home [address] [place] [address]
--- OUTSIDE RECORDS SUMMARY | 2024-02-24 19:46 | XMS_ITS | Continuity of Care Document ---
Author Organization [facility] ter Address [address] [place] [id number]- Care Team Providers Care [employer] Name Role Phone Sourav RFANZ, Ella Carmona Primary Care Physician Encounter [facility] Date(s): 02/10/24 - 02/11/[address] [id number]- Encounter Diagnosis Foot pain(Final) - 02/10/24 Discharge Disposition: A-D/C Home Attending Physician: Mario Alberto Espinoza DO Admitting Physician: Mario Alberto Espinoza DO Referring Physician: Not on Staff, Referring MD Allergies, Adverse Reactions, Alerts Substance Reaction Severity Status codeine Active ibuprofen Active haloperidol Active lithium Active penicillin Active Benadryl Active Bactrim DS 1 acute renal failure Active Apples Active Grapes Active 1had episodes of acute renal failure during admission to [facility] -- resolved both times off Bactrim [...] tablet, 0 Refills, Maintenance, 12/31/23 8:14:00EDT, Tablet, [facility], Partial fill upon patient request if the prescription is for a schedule II opioid drug., 165, cm, 12/30/23 20:24:00... Start Date: 12/31/23 Stop Date: 01/30/24 Status: Ordered benztropine 0.5 mg oral tablet 0.5 mg, 1, tablet, By Mouth, 2 times a day, # 60 tablet, Refills 0, Tot. Refills 0, Maintenance, 12/31/23 8:15:00 EDT, Route to Pharmacy Electronically, [facility], Partial fill upon patient request if the prescription is for a schedule II o... Start Date: 12/31/23 Stop Date: 01/30/24 Status: Ordered cephalexin monohydrate 500 mg oral capsule 1 capsule = 500 mg, By Mouth, 4 times a day, for 10 days, # 40 capsule, 0 Refills, Acute 02/17/24 14:12:00 EDT, 02/07/24 14:12:00 EDT, Capsule, [facility], Partial fill upon patient requestif the prescription is for a schedule II opioid kristi... Start Date: 02/07/24 Stop Date: 02/17/24 Status: Ordered cetirizine 5 mg oral tablet 1 tablet = 5 mg, By Mouth, Daily at bedtime, PRN Other, allergy symptoms, # 30 tablet, 0 Refills, Maintenance, 12/31/23 8:15:00 EDT, Tablet, [facility], Partial fill upon patient request ifthe prescription is for a schedule II opioid drug.,... Start Date: 12/31/23 Stop Date: 01/30/24 Status: Ordered cholecalciferol 1000 intl units oral tablet 1 tablet = 25 mcg, By Mouth, Daily, # 30 tablet, 0 Refills, Maintenance, 12/31/23 8:15:00 EDT, Tablet, [facility], Partial fill upon patient request if the prescription is for a schedule IIopioid drug., 165, cm, 12/30/23 20:24:00 EDT, [place]... Start Date: 12/31/23 Stop Date: 01/30/24 Status: Ordered clozapine 100 mg oral tablet See Instructions, 250 (2.5 tablets) mg By Mouth Daily at bedtime 30 days, # 75 tablet, 0 Refills, Maintenance, 12/31/23 8:16:00 EDT, Tablet, [facility], Partial fill upon patient request ifthe prescription is for a schedule II opioid drug.,... Start Date: 12/31/23 Status: Ordered divalproex sodium 500 mg oral enteric coated tablet 3 tablet = 1,500 mg, By Mouth, Daily at bedtime, # 90 tablet, 0 Refills, Maintenance, 12/31/23 8:17:00 EDT, Tablet, [facility], Partial fill upon patient request if the prescription is for a schedule II opioid drug., 165, cm, 12/30/23 20:24:... Start Date: 12/31/23 Stop Date: 01/30/24 Status: Ordered docusate sodium 100 mg oral capsule 100 mg, 1, capsule, By Mouth, 2 times a day, PRN, # 60 capsule, Refills 0, Tot. Refills 0, Maintenance, Constipation, 12/31/23 8:18:00 EDT, Route to Pharmacy Electronically, [facility], Partial fill upon patient request if the prescription i... Start Date: 12/31/23 Stop Date: 01/30/24 Status: Ordered FLUoxetine 20 mg oral capsule 20 mg, 1, capsule, By Mouth, Daily, # 30 capsule, Refills 0, Tot. Refills 0, Maintenance, 12/31/23 8:18:00 EDT, Route to Pharmacy Electronically, [facility], Partial fill upon patient request if [...] 0 Refills, Maintenance, 12/31/23 8:19:00 EDT, Tablet, [facility], Partial fill upon patient request if [...] opioid drug. Start Date: 12/13/23 Status: Ordered mupirocin 2% topical ointment 1 application, Topically, 3 times a day, for 5 days, # 15 Gm, 0 Refills, Acute 02/12/24 14:12:00 EDT, 02/07/24 14:12:00 EDT, Ointment, [facility], Partial fill upon patient request if the prescription is for a schedule II opioid drug., 1 makayla... Start Date: 02/07/24 Stop Date: 02/12/24 Status: Ordered Rolling walker Rolling walker, See [...] 12/31/23 8:20:00 EDT, Route to Pharmacy Electronically, [facility], Partial fill upon patient request if [...] Exam Date Time Procedure Performing Provider Status 02/10/24 6:[address] Abd/Pelvis W/ IV Contrast Only [place] n , Darya; Auth (Verified) Notes: (CT Abd/Pelvis W/ IV Contrast Only) Reason For Exam: LLQ abdominal pain;Other: RESULT: CT Abd/Pelvis W/ IV Contrast Only CT Chest W/ Contrast, CT Abd/Pelvis W/ IV Contrast Only INDICATION: Hx of Present Illness: [facility] by [facility], ptient reports she lost footing and hit her head but doesnt remember event. unknown baseline, staff couldnt provide baseline orientation. a ox2. reporting forehead pain. C collar placed; Reason: Other:; Pulmonary Lesion; Clinical Question(s): Interstitial Alveolar Infiltration TECHNIQUE: Helical CT scan of the chest, abdomen, and pelvis with IV contrast, formatted in 3 planes. 100 cc of Omnipaque 300 was administered intravenously. This study was performed without oral contrast. Weight-based protocol was performed using automatic exposure control. CTDIvol Body: 13.10 mGy, DLP Body: 978 mGy*cm. COMPARISON: 12/03/2023 FINDINGS: Filter Press Tender view findings, lines and tubes: None. Trachea and airways: Patent without evidence of tracheal or endobronchial lesion. Lungs and pleura: Mild dependent atelectasis in bilateral lower lobes. No focal consolidation. Few scattered calcified and noncalcified tiny granulomas in both lungs. No effusion or pneumothorax. Mediastinum and michele: No mass or hematoma. No mediastinal or hilar lymphadenopathy. No esophageal abnormality. Visualized thyroid gland is unremarkable. Heart: Heart is normal in size. Trace pericardial effusion. Aorta: No aortic aneurysm. Pulmonary arteries: Normal caliber. No evidence of pulmonary embolism on this study performed without angiographic technique. Chest wall soft tissues: No acute abnormality. Diaphragm: Mild elevation of the right hemidiaphragm. Liver: Normal in attenuation and morphology. No suspicious lesion. Gallbladder: No CT evidence of gallbladder pathology. Bile ducts: No biliary ductal dilation. Spleen: Normal in size. Pancreas: No suspicious lesion or ductal dilatation. Adrenal glands: No nodule. Kidneys and ureters: No hydronephrosis, stone, or suspicious lesion. Numerous tiny cysts noted throughout both kidneys as also seen on the prior study. Bladder: No wall thickening or surrounding stranding. Reproductive organs: Unremarkable. Stomach, small bowel, and large bowel: Moderate fecal retention throughout the colon. Stomach and small bowel are within normal limits. No inflammatory changes in the bowel. Appendix: No evidence of acute appendicitis. Peritoneum and retroperitoneum: No ascites or pneumoperitoneum. No omental or mesenteric lesions. Lymph nodes: No enlarged lymph nodes. Blood vessels: No vascular calcifications or aneurysm. No evidence of venous thrombosis. Abdominal and pelvic wall soft tissues: No acute abnormality. Bones: No acute or aggressive osseous abnormality. Mild to moderate chronic degenerative changes of the visualized thoracic and lumbar spine. Diffuse idiopathic skeletal hyperostosis in the thoracic spine. IMPRESSION: No CT evidence of acute post traumatic abnormality in the chest, abdomen or pelvis. Numerous tiny cysts noted throughout both kidneys. Diffuse idiopathic skeletal hyperostosis in the thoracic spine. No acute fracture in the osseous structures. WSN: [id number] Ordering Physician: José Luis Rogers Dictated By: Simran Melendez MD Dictated Date/Time: 02/10/24 6:40 pm Reviewed By: Simran Melendez MD Signed By: Simran Melendez MD Signed Date/Time: 02/10/24 6:40 pm Transcribed By: RANI Transcribed Date/Time: 02/10/24 6:25 pm * Exam Date Time Procedure Performing Provider Status 02/10/24 6:[address] Chest W/ Contrast [place] , Darya; Auth (Verified) Notes: (CT Chest W/ Contrast) Reason For Exam: Pulmonary Lesion;Other: RESULT: CT Chest W/ Contrast CT Chest W/ Contrast, CT Abd/Pelvis W/ IV Contrast Only INDICATION: Hx of Present Illness: [facility]itnessed fall by staff, ptient reports she lost footing and hit her head but doesnt remember event. unknown baseline, staff couldnt provide baseline orientation. a ox2. reporting forehead pain. C collar placed; Reason: Other:; Pulmonary Lesion; Clinical Question(s): Interstitial Alveolar Infiltration TECHNIQUE: Helical CT scan of the chest, abdomen, and pelvis with IV contrast, formatted in 3 planes. 100 cc of Omnipaque 300 was administered intravenously. This study was performed without oral contrast. Weight-based protocol was performed using automatic exposure control. CTDIvol Body: 13.10 mGy, DLP Body: 978 mGy*cm. COMPARISON: 12/03/2023 FINDINGS: Filter Press Tender view findings, lines and tubes: None. Trachea and airways: Patent without evidence of tracheal or endobronchial lesion. Lungs and pleura: Mild dependent atelectasis in bilateral lower lobes. No focal consolidation. Few scattered calcified and noncalcified tiny granulomas in both lungs. No effusion or pneumothorax. Mediastinum and michele: No mass or hematoma. No mediastinal or hilar lymphadenopathy. No esophageal abnormality. Visualized thyroid gland is unremarkable. Heart: Heart is normal in size. Trace pericardial effusion. Aorta: No aortic aneurysm. Pulmonary arteries: Normal caliber. No evidence of pulmonary embolism on this study performed without angiographic technique. Chest wall soft tissues: No acute abnormality. Diaphragm: Mild elevation of the right hemidiaphragm. Liver: Normal in attenuation and morphology. No suspicious lesion. Gallbladder: No CT evidence of gallbladder pathology. Bile ducts: No biliary ductal dilation. Spleen: Normal in size. Pancreas: No suspicious lesion or ductal dilatation. Adrenal glands: No nodule. Kidneys and ureters: No hydronephrosis, stone, or suspicious lesion. Numerous tiny cysts noted throughout both kidneys as also seen on the prior study. Bladder: No wall thickening or surrounding stranding. Reproductive organs: Unremarkable. Stomach, small bowel, and large bowel: Moderate fecal retention throughout the colon. Stomach and small bowel are within normal limits. No inflammatory changes in the bowel. Appendix: No evidence of acute appendicitis. Peritoneum and retroperitoneum: No ascites or pneumoperitoneum. No omental or mesenteric lesions. Lymph nodes: No enlarged lymph nodes. Blood vessels: No vascular calcifications or aneurysm. No evidence of venous thrombosis. Abdominal and pelvic wall soft tissues: No acute abnormality. Bones: No acute or aggressive osseous abnormality. Mild to moderate chronic degenerative changes of the visualized thoracic and lumbar spine. Diffuse idiopathic skeletal hyperostosis in the thoracic spine. IMPRESSION: No CT evidence of acute post traumatic abnormality in the chest, abdomen or pelvis. Numerous tiny cysts noted throughout both kidneys. Diffuse idiopathic skeletal hyperostosis in the thoracic spine. No acute fracture in the osseous structures. WSN: [id number] Ordering Physician: José Luis Rogers Dictated By: Simran Melendez MD Dictated Date/Time: 02/10/24 6:40 pm Reviewed By: Simran Melendez MD Signed By: Simran Melendez MD Signed Date/Time: 02/10/24 6:40 pm Transcribed By: RANI Transcribed Date/Time: 02/10/24 6:25 pm * Exam Date Time Procedure Performing Provider Status 02/10/24 6:[address] Cervical Spine W/O Contrast [place] , Darya; Auth (Verified) Notes: (CT Cervical Spine W/O Contrast) Reason For Exam: Neck trauma, dangerous injury mechanism;Other: RESULT: CT Cervical Spine W/O Contrast CT Head/Brain W/O Contrast, CT Cervical Spine W/O Contrast INDICATION: Hx of Present Illness: [facility] by staff, patient reports she lost footing and hit her head but doesn't remember event. Unknown baseline, staff couldn't provide baseline orientation. a ox2. reporting forehead pain. C collar placed; Reason: Trauma; Clinical Question(s): Hematoma TECHNIQUE: Noncontrast head CT using axial technique was reconstructed in axial and coronal planes.Noncontrast spiral CT through the cervical spine was formatted in 3 planes. Automatic tube modulation was used for the cervical spine and iterative dose reconstruction was used for both the head and cervical spine to optimize scan parameters and image quality. CTDIvol Body: 15.30 mGy, DLP Body: 406 mGy*cm. CTDIvol Head: 39.70 mGy, DLP Head: 672 mGy*cm. COMPARISON: Head CT 02/04/2024 FINDINGS: Filter Press Tender View Findings, Lines and Tubes: None. BRAIN AND EXTRA-AXIAL SPACES: No parenchymal hemorrhage, midline shift, or mass effect. Echevarria-white matter differentiation is wellpreserved. No acute infarct. Mild prominence of the ventricles and sulci consistent with parenchymal volume loss. No white matter lesions. No subarachnoid hemorrhage. No subdural or epidural collection. CALVARIUM, SKULL BASE, AND SOFT TISSUES: No fractures or suspicious bony lesions. The paranasal sinuses and mastoid air cells are clear. Visualized orbits and globes are intact. The extracranial soft tissues are unremarkable. CERVICAL SPINE: No fracture. No acute osseous abnormalities. Normal alignment. No locked or perched facet. DISH of the cervical spine. OTHER BONES: No acute abnormality. CERVICAL SOFT TISSUES AND LUNG APICES: No acute abnormality. Visualized lung apices are clear. IMPRESSION: 1. No evidence of acute intracranial abnormality. 2. No evidence of acute fracture or dislocation of the cervical spine. WSN: [id number] Ordering Physician: José Luis Rogers Dictated By: Myron Floyd MD Dictated Date/Time: 02/10/24 6:30 pm Reviewed By: Myron Floyd MD Signed By: Myron Floyd MD Signed Date/Time: 02/10/24 6:30 pm Transcribed By: RANI Transcribed Date/Time: 02/10/24 6:24 pm * Exam Date Time Procedure Performing Provider Status 02/10/24 6:[address] Head/Brain W/O Contrast Colon , Tat veronica; Auth (Verified) Notes: (CT Head/Brain W/O Contrast) Reason For Exam: Trauma RESULT: CT Head/Brain W/O Contrast CT Head/Brain W/O Contrast, CT Cervical Spine W/O Contrast INDICATION: Hx of Present Illness: [facility] by staff, patient reports she lost footing and hit her head but doesn't remember event. Unknown baseline, staff couldn't provide baseline orientation. a ox2. reporting forehead pain. C collar placed; Reason: Trauma; Clinical Question(s): Hematoma TECHNIQUE: Noncontrast head CT using axial technique was reconstructed in axial and coronal planes.Noncontrast spiral CT through the cervical spine was formatted in 3 planes. Automatic tube modulation was used for the cervical spine and iterative dose reconstruction was used for both the head and cervical spine to optimize scan parameters and image quality. CTDIvol Body: 15.30 mGy, DLP Body: 406 mGy*cm. CTDIvol Head: 39.70 mGy, DLP Head: 672 mGy*cm. COMPARISON: Head CT 02/04/2024 FINDINGS: Filter Press Tender View Findings, Lines and Tubes: None. BRAIN AND EXTRA-AXIAL SPACES: No parenchymal hemorrhage, midline shift, or mass effect. Echevarria-white matter differentiation is wellpreserved. No acute infarct. Mild prominence of the ventricles and sulci consistent with parenchymal volume loss. No white matter lesions. No subarachnoid hemorrhage. No subdural or epidural collection. CALVARIUM, SKULL BASE, AND SOFT TISSUES: No fractures or suspicious bony lesions. The paranasal sinuses and mastoid air cells are clear. Visualized orbits and globes are intact. The extracranial soft tissues are unremarkable. CERVICAL SPINE: No fracture. No acute osseous abnormalities. Normal alignment. No locked or perched facet. DISH of the cervical spine. OTHER BONES: No acute abnormality. CERVICAL SOFT TISSUES AND LUNG APICES: No acute abnormality. Visualized lung apices are clear. IMPRESSION: 1. No evidence of acute intracranial abnormality. 2. No evidence of acute fracture or dislocation of the cervical spine. WSN: [id number] Ordering Physician: José Luis Rogers Dictated By: Myron Floyd MD Dictated Date/Time: 02/10/24 6:30 pm Reviewed By: Myron Floyd MD Signed By: Myron Floyd MD Signed Date/Time: 02/10/24 6:30 pm Transcribed By: RANI Transcribed Date/Time: 02/10/24 6:24 pm Vital Signs Most recent to oldest [Reference Range]: 1 2 3 Oxygen Saturation [94-100 %] 98 % (02/11/24 1:51 PM) 98 % (02/11/24 6:01 AM) 97 % (02/11/24 2:48 AM) Pulse Rate [55-90 bpm] 80 bpm (02/11/24 1:51 PM) 79 bpm (02/11/24 6:01 AM) 79 bpm (02/11/24 2:48 AM) Blood Pressure [90-138/55-84 mm Hg] 118/80mm Hg (02/11/24 1:51 PM) 112/71mm Hg (02/11/24 6:01 AM) 116/71mm Hg (02/11/24 2:48 AM) Respiratory Rate [16-30 br/min] 18 br/min (02/11/24 1:51 PM) 10 br/min *L* (02/11/24 6:01 AM) 16 br/min (02/11/24 2:48 AM) Temperature [96.8-100.4 DegF] 98.1 DegF (02/11/24 1:51 PM) 97.8 DegF (02/11/24 2:48 AM) 97.4 DegF (02/10/24 7:24 PM) Mode of Delivery (Oxygen) Room air (02/11/24 1:51 PM) Room air (02/11/24 6:01 AM) Room air (02/11/24 2:48 AM) Blood pressure sites Arm, left (02/11/24 1:51 PM) Arm, left (02/11/24 6:01 AM) Arm, left (02/11/24 2:48 AM) Temperature Route Oral (02/11/24 1:51 PM) Oral (02/11/24 2:48 AM) Oral (02/10/24 7:24 PM) Social History Social History Type Response Smoking Status Former smoker, quit more than 30 days ago entered on: 09/27/20 [facility] Progress note * Constantin MCCLELLAN, Yolanda Jacobs: PERFORM, SIGN, VERIFY Event Display: Progress Note Hospital Authored Date: [id number] Patient: JADYN LINN Age: 53 years Sex: Female : 1970 Associated Diagnoses: None Author: Constantin MCCLELLAN, Yolanda Jacobs Discharge Plan Case Management Discharge Plan : Case Management Discharge Plan Data 02/11/2024 13:52 EDT Discharge Level of Care at Discharge Homehealth/VNA Discharge VNA/Hospice/Home Care [facility] [phone] Discharge Medical Equipment [employer] 02/11/2024 13:05 EDT Discharge Level of Care at Discharge Homehealth/VNA Discharge VNA/Hospice/Home Care [facility] [phone] Discharge Medical Equipment [employer] Name of Agency #1 [facility] Name of Agency #1 [facility] Service Categories #1 Physical Therapy, Jail Service Comments #1 You are already active with these services Service Categories #2 Walker Service Comments #2 Walker has been given to you in the ED Note * Mario Alberto Espinoza DO: PERFORM, SIGN, VERIFY Event Display: Patient Education Handout Authored Date: * Mario Alberto Espinoza DO: PERFORM Event Display: Patient Education Leaflets Authored Date: Fall??Prevention ?? [id number] Fall??Prevention Falls often take place due to slipping, tripping, or losing your balance. Millions of people fall every year and injure themselves.??Among older adults in the [place] falls are the most common cause oftraumatic brain injuries. Every 20 minutes, an older adult dies from a fall. Here are ways to reduce your risk of falling again: ??? Think about your fall. Was there anything that caused your fall that can be fixed, removed, or replaced? Make your home safe by keeping walkways clear of objects you may trip over, such as electrical cords. ??? Use nonslip pads under rugs. Don't use area rugs orsmall throw rugs. ??? Use nonslip mats in bathtubs and showers. ??? Hang grab rails by the toilet and inside and outside the shower. ??? Install handrails and lights on staircases. The handrails should be on both sides of the stairs. ??? Use night lights. ??? Don't walk in poorly lit areas. ??? Don't stand on chairs or wobbly ladders. ??? Use care when reaching overhead or looking up.??This position can cause a loss of balance. ??? Be sure your shoes fit well, are in good condition, and have non slip bottoms.? Wear shoes both inside and outside of your home. Don't go barefoot or wear slippers. ??? Be cautious when going up and down stairs, curbs, and when walking on uneven sidewalks. ??? If your balance is poor, consider using a cane or walker. Talk with your healthcare provider abouthaving a balance assessment. ??? If your fall was related to alcohol use, stop or limit alcohol intake.??Ask your provider for help if you think you may overuse alcohol and can't stop. ??? If your fall was related to use of sleeping medicines, talk with your provider about this.??You may need to reduce your dosage at bedtime if you wake up during the night to go to the bathroom.? To reducethe need for nighttime bathroom trips: o Don't drink fluids for several hours before going to bed oEmpty your bladder before going to bed o Men can keep a urinal at the bedside ??? Stay as active asyou can. Balance, flexibility, strength, and endurance all come from exercise. They all play a rolein preventing falls. Ask your provider which types of activity are right for you. Try to do some type of exercise every day. ??? Get your eyes checked once a year or more often if your vision changes??? If you have pets, know where they are before you stand up or walk so you don't trip over them. ??? Go over all your medicines with a pharmacist or other provider. This is to see if any of them could make you more likely to fall. Have this type of medicine review at least once every year. ??? Ifyour provider advises a new medicine, ask if the side effects will affect your balance. ??? Don't move quickly from one position to another. For instance, don't stand up fast from sitting. This can cause dizziness and may lead to a fall. ??? Sit down when putting on pants, socks, and shoes. This will make you less likely to lose your balance and fall. ??? Always let your provider know if you havefallen since your last visit. ??? Contact your provider right away if you're having balance problems or falling more often. Last Reviewed Date: 2021 ?? The [employer]. All rights reserved. This information is not intended as a substitute for professional medical care. Always follow your healthcare professional's instructions. ?? Patient Care team information Care Team Personnel Name: Alexandra Whipple RN Position: S RN Member Role: Primary Care Nurse Name: Lawrence Cano RN Position: S RN Member Role: Primary Care Nurse Name: Ella Benjamin NP Position: Reference Physician Member Role: PCP Address: Address: [address] [place] [address] Adults and [address] Name: Nayana Bradshaw RN Position: [facility] RN Member Role: Primary Care Nurse Name: Ana María Espino RN Position: S RN Member Role: Primary Care Nurse Name: Raji Somers RN Position: S RN Member Role: Primary Care Nurse Name: Ulisses Barboza Position: S RN Member Role: Primary Care Nurse Name: Dahiana Thrasher RN Position: [facility] ED RN W/OE and Tasks Member Role: Primary Care Nurse Name: Shira Ewing RN Position: S RN Member Role: Primary Care Nurse Name: Rick Chi RN Position: [facility] RN Member Role: Primary Care Nurse Name: Maggi Fagan RN Position: [facility] ED RN W/OE and Tasks Member Role: Primary Care Nurse Name: Marlo Davies RN Position: S RN Member Role: Primary Care Nurse Name: Moni Rodriguez Position: S RN Member Role: Primary Care Nurse Name: Lawson Rivers RN Position: [facility] RN Supv Member Role: Primary Care Nurse Name: Mark Mccullough RN Position: S RN Member Role: Primary Care Nurse Name: Ana María Ugarte RN Position: S RN Member Role: Primary Care Nurse Name: Nayana Reyes RN Position: [facility] RN Member Role: Primary Care Nurse Name: Capo Sales RN Position: [facility] RN Member Role: Primary Care Nurse Name: Yenni Medellin RN Position: [facility] RN Member Role: Primary Care Nurse Name: Anna Cespedes RN Position: [facility] RN Member Role: Primary Care Nurse Name: Gabino Cespedes RN Position: [facility] RN Member Role: Primary Care Nurse Care Team Related Persons Name: OBED MARK Address: home [address] [place] [id number] Name: RESIDENTIAL, LORI Name: DORIS KNUTSON Address: home [address] [place] [address]
--- OUTSIDE RECORDS SUMMARY | 2024-02-24 19:46 | XMS_ITS | Continuity of Care Document ---
Author Organization [facility] Franky lawrences [facility] Address [address], 4t [place] [address]- Care Team Providers Care Teacher Physically Impaired Name Role Phone Manuel PADILLA, Sidney Trejo Primary Care Physician [place] [facility]): [place]23 [place] 12/05/23 [facility] [address], 4th [place] [address]- Attending Physician: Not on Staff, Attending MD Referring Physician: Kyle FRANZ, Carolina Jacobs Allergies, Adverse Reactions, Alerts Substance Reaction Severity Status ibuprofen Active haloperidol Active lithium Active penicillin Active Benadryl Active Bactrim DS 1 acute renal failure Active Grapes Active Apples Active 1had episodes of acute renal failure during admission to [facility] -- resolved both times off Bactrim [...] 02/07/23 12:50:00 EDT, Route to Pharmacy Electronically, [facility]-, Partialfill upon patient request if the prescription [...] tablet, 1 Refills, Maintenance, 02/07/23 12:50:00 EDT, [facility]-, Partial fill upon patient request if the prescription is for a schedule II opioid drug., 165, cm, 01/31/23... Start Date: 02/07/23 Status: Ordered divalproex sodium 500 mg oral tablet, extended release 3 tablet = 1,500 mg, By Mouth, Daily at bedtime, # 90 tablet, 1 Refills, Maintenance, 02/07/23 12:51:00 EDT, ER Tablet, [facility]- , Partial fill upon patient request if the prescription is for a schedule II opioid drug., 165,... Start Date: 02/07/23 Status: Ordered docusate sodium 100 mg oral tablet = 100 mg, By Mouth, 2 times a day, # 60 tablet, 0 Refills, Maintenance, 02/07/23 12:51:00 EDT, Tablet, [facility]-, Partial fill upon patient request if the [...] 1 Refills, Maintenance, 02/07/23 12:51:00 EDT, Tablet, [facility]-, Partial fill upon patient request if the prescription is for a schedule II opioid drug., 165, cm, ... Start Date: 02/07/23 Status: Ordered MiraLax oral powder for reconstitution = 17 Gm, By Mouth, Daily, dissolve in 4 to 8 oz of beverage, # 119 Gm, 0 Refills, Maintenance, 11/12/23 9:15:00 EST, REC Powder, [facility]-, Partial fill upon patient requestif the prescription is for a schedule II opioid kristi... Start Date: 11/12/23 Stop Date: 11/19/23 Status: Ordered trospium 60 mg oral capsule, extended release 1 capsule = 60 mg, By Mouth, Daily in AM, # 30 capsule, 5 Refills, Maintenance, 11/27/23 10:50:00 EDT, CR Capsule, [facility], Partial fill upon patient request if [...] Team Personnel Name: Lawrence Cano RN Position: [facility] RN Member Role: Primary Care Nurse Name: Nayana Bradshaw RN Position: [facility] RN Member Role: Primary Care Nurse Name: Ana María Espino RN Position: [facility] RN Member Role: Primary Care Nurse Name: Raji Somers RN Position: [facility] RN Member Role: Primary Care Nurse Name: Ulisses Barboza Position: [facility] RN Member Role: Primary Care Nurse Name: Dahiana Thrasher RN Position: [facility] ED RN W/OE and Tasks Member Role: Primary Care Nurse Name: Rick Chi RN Position: [facility] RN Member Role: Primary Care Nurse Name: Maggi Fagan RN Position: [facility] ED RN W/OE and Tasks Member Role: Primary Care Nurse Name: Lawson Rivers RN Position: [facility] RN Supv Member Role: Primary Care Nurse Name: Mark Mccullough RN Position: [facility] RN Member Role: Primary Care Nurse Name: Sidney Jackson MD Position: [facility] Physician - Primary Care Member Role: PCP Address: Address: [address] [place] [address], [address] [place] [address]- [place] Name: Nayana Reyes RN Position: S RN Member Role: Primary Care Nurse Name: Anna Cespedes RN Position: S RN Member Role: Primary Care Nurse Name: Gabino Cespedes RN Position: S RN Member Role: Primary Care Nurse Care Team Related Persons Name: MARK CLAY Address: home [address] [place] [id number] Name: CUSTODIAL, LORI Name: DORIS KNUTSON Address: home [address] [place] [address]
--- OUTSIDE RECORDS SUMMARY | 2024-02-24 19:46 | XMS_ITS | Continuity of Care Document ---
Author Organization [facility] ter Address [address] [place] [address]- Care Team Providers Care Figure Skater Name Role Phone Sidney Jackson MD Primary Care Physician [phone] Encounter [facility] Date(s): 01/09/24 - 01/10/[address] [address]- Discharge Disposition: A-D/C Home Attending Physician: Lucia Tony DO Admitting Physician: Lucia Tony DO Referring Physician: Not on Staff, Referring [...] Vaccine (oldterm) 06/27/06 Given Pneumococcal Vaccine (oldterm) 11/12/99 Given tetanus-diphtheria toxoids (Td) 07/10/97 Given 1Early/Late [...] tablet, 0 Refills, Maintenance, 12/31/23 8:14:00EDT, Tablet, [facility], Partial fill upon patient request if the prescription is for a schedule II opioid drug., 165, cm, 12/30/23 20:24:00... Start Date: 12/31/23 Stop Date: 01/30/24 Status: Ordered benztropine 0.5 mg oral tablet 0.5 mg, 1, tablet, By Mouth, 2 times a day, # 60 tablet, Refills 0, Tot. Refills 0, Maintenance, 12/31/23 8:15:00 EDT, Route to Pharmacy Electronically, [facility], Partial fill upon patient request if the prescription is for a schedule II o... Start Date: 12/31/23 Stop Date: 01/30/24 Status: Ordered cetirizine 5 mg oral tablet 1 tablet = 5 mg, By Mouth, Daily at bedtime, PRN Other, allergy symptoms, # 30 tablet, 0 Refills, Maintenance, 12/31/23 8:15:00 EDT, Tablet, [facility], Partial fill upon patient request ifthe prescription is for a schedule II opioid drug.,... Start Date: 12/31/23 Stop Date: 01/30/24 Status: Ordered cholecalciferol 1000 intl units oral tablet 1 tablet = 25 mcg, By Mouth, Daily, # 30 tablet, 0 Refills, Maintenance, 12/31/23 8:15:00 EDT, Tablet, [facility], Partial fill upon patient request if the prescription is for a schedule IIopioid drug., 165, cm, 12/30/23 20:24:00 EDT, Heigh... Start Date: 12/31/23 Stop Date: 01/30/24 Status: Ordered clozapine 100 mg oral tablet See Instructions, 250 (2.5 tablets) mg By Mouth Daily at bedtime 30 days, # 75 tablet, 0 Refills, Maintenance, 12/31/23 8:16:00 EDT, Tablet, [facility], Partial fill upon patient request ifthe prescription is for a schedule II opioid drug.,... Start Date: 12/31/23 Status: Ordered divalproex sodium 500 mg oral enteric coated tablet 3 tablet = 1,500 mg, By Mouth, Daily at bedtime, # 90 tablet, 0 Refills, Maintenance, 12/31/23 8:17:00 EDT, Tablet, [facility], Partial fill upon patient request if the prescription is for a schedule II opioid drug., 165, cm, 12/30/23 20:24:... Start Date: 12/31/23 Stop Date: 01/30/24 Status: Ordered docusate sodium 100 mg oral capsule 100 mg, 1, capsule, By Mouth, 2 times a day, PRN, # 60 capsule, Refills 0, Tot. Refills 0, Maintenance, Constipation, 12/31/23 8:18:00 EDT, Route to Pharmacy Electronically, [facility], Partial fill upon patient request if the prescription i... Start Date: 12/31/23 Stop Date: 01/30/24 Status: Ordered FLUoxetine 20 mg oral capsule 20 mg, 1, capsule, By Mouth, Daily, # 30 capsule, Refills 0, Tot. Refills 0, Maintenance, 12/31/23 8:18:00 EDT, Route to Pharmacy Electronically, [facility], Partial fill upon patient request if the prescription is for a schedule II opioid d... Start Date: 12/31/23 Stop Date: 01/30/24 Status: Ordered hydrOXYzine pamoate 25 mg oral capsule 1 capsule = 25 mg, By Mouth, 3 times a day, PRN Anxiety, for 30 days, # 90 capsule, 0 Refills, Acute 01/30/24 9:45:00 EDT, 12/31/23 9:45:00 EDT, Capsule, [facility], Partial fill upon patient request if [...] 0 Refills, Maintenance, 12/31/23 8:19:00 EDT, Tablet, [facility], Partial fill upon patient request if [...] 12/31/23 8:20:00 EDT, Route to Pharmacy Electronically, [facility], Partial fill upon patient request if [...] Most recent to oldest [Reference Range]: 1 Oxygen Saturation [94-100 %] 100 % (01/09/24 9:56 PM) Pulse Rate [55-90 bpm] 107 bpm *H* (01/09/24 9:56 PM) Blood Pressure [90-138/55-84 mm Hg] 119/ 47mm Hg (01/09/24 9:56 PM) Respiratory Rate [16-30 br/min] 20 br/mi n (01/09/24 9:56 PM) Temperature [96.8-100.4 DegF] 97.5 DegF (01/09/24 9:56 PM) Mode of Delivery (Oxygen) Room air (01/09/24 9:56 PM) Blood pressure sites Arm, left (01/09/24 9:56 PM) Temperature Route Oral (01/09/24 9:56 PM) Social History Social History Type Response Smoking Status Former smoker, quit more than 30 days ago entered on: 09/27/20 Sex Note * Manuel Gregory MD: PERFORM Event Display: Patient Education Leaflets Authored Date: [id number] Fall with Uncertain Cause ?? [id number] Fall with Uncertain Cause You had a fall today. But the cause of your fall is not certain. Falls can happen due to slipping, tripping, or losing your balance. A fall can also happen from a fainting spell or seizure. A fall can happen for a simple reason (such as tripping over something). But falls in older adults are often caused by a combination of things: ??? Age-related decline in function with worsening balance, stability, vision, and muscle strength ??? Chronic illness, such as heart arrhythmias, heart valve disease, vascular disease, COPD, diabetes, stroke, or arthritis ??? Shoes with lack of support that make you likely to slip or slide ??? Anemia or low blood pressure? Effects or side effects of medicines ??? Fluid loss (dehydration) orrecent alcohol use ??? Hazards in your home or around you, such as??uneven surfaces, slippery ground, an unfamiliar place, or obstacles ??? Something linked to an activity you were doing, such as rushing to the bathroom The cause of your fall today is not certain. So it's possible that it was due to a fainting spell or seizure. This means that it could happen again without warning. If you fall again without a cause,come back to this facility right away for more tests. Or follow up with your healthcare provider asexplained below. It's normal to feel sore and tight in your muscles and back the next day, and not just the muscles you first injured. All the parts of your body are connected. So while at first one area hurts, the next day another may hurt. Also, when you injure yourself, it causes inflammation. This makes your muscles tighten up and hurt more. After that, it should slowly improve over the next few days. Tell your provider if you have any more severe pain. Even without a definite head injury, you can still get a concussion. Concussions and bleeding can still happen, especially if you had a recent injury. Or if you take blood-thinner medicine. You may also have a mild headache. And you may feel tired and even nauseous or dizzy. Home care ??? Rest today and resume your normal activities as soon as you feel normal again. It's best to stay with someone. They can check on you for the next 24 hours to see if you fall again. ??? If you were hurt during the fall, follow your healthcare provider's advice on caring for your injury. ??? If you get lightheaded or dizzy, lie down right away. Or sit and lean forward with your head down. ??? For your safety, until you see your healthcare provider: o Don't drive a car or operate dangerous equipment. o Don't take a bath or shower alone. o Don't swim alone. A condition causing fainting or seizures must be ruled out before doing these activities. ??? You may use acetaminophen or ibuprofen to control pain, unless another pain medicine was prescribed. Talk with your provider beforeusing these medicines if you: o Have chronic liver or kidney disease o Ever had a stomach ulcer or??gastrointestinal bleeding o Take blood- thinning medicines ??? Keep your appointments for any further testing that may have been scheduled for you. ?? Follow-up care Follow up with your healthcare provider, or as advised. If X-rays or a CT scan were done, you will be told if there is a change in the reading, especially if it affects treatment. ?? Call 911 Call 911 if any of these happen: ??? Trouble breathing ??? Confusion ??? Trouble waking up ??? Fainting or loss of consciousness ??? Fast or very slow heart rate ??? Seizure ??? Speech or vision problems ??? Arm or leg weakness ??? Trouble walking or talking, loss of balance, numbness or weakness on one side of your body, or facial droop ?? When to get medical advice Call your healthcare provider right away if any of these happen: ??? Another unexplained fall ??? Dizziness ??? Severe headache ??? Nausea and vomiting ??? Blood in vomit, stools (black or red color) ?? Last Reviewed Date: 2022 ?? [id number] The [employer]. All rights reserved. This information is not intended as a substitute for professional medical care. Always follow your healthcare professional's instructions. ?? Patient Care team information Care Team Personnel Name: Alexandra Whipple RN Position: [facility] RN Member Role: Primary Care Nurse Name: Lawrence Cano RN Position: [facility] RN Member Role: Primary Care Nurse Name: Nayana Bradshaw RN Position: [facility] RN Member Role: Primary Care Nurse Name: Ana María Espino RN Position: [facility] RN Member Role: Primary Care Nurse Name: Raji Somers RN Position: [facility] RN Member Role: Primary Care Nurse Name: Ulisses Barboza Position: [facility] RN Member Role: Primary Care Nurse Name: Dahiana Thrasher RN Position: [facility] JAMAL RN W/OE and Tasks Member Role: Primary Care Nurse Name: Shira Ewing RN Position: [facility] RN Member Role: Primary Care Nurse Name: Rick Chi RN Position: [facility] RN Member Role: Primary Care Nurse Name: Maggi Fgaan RN Position: [facility] JAMAL RN W/OE and Tasks Member Role: Primary Care Nurse Name: Marlo Davies RN Position: [facility] RN Member Role: Primary Care Nurse Name: Moni Rodriguez Position: S RN Member Role: Primary Care Nurse Name: Lawson Rivers RN Position: [facility] RN Supv Member Role: Primary Care Nurse Name: Mark Mccullough RN Position: S RN Member Role: Primary Care Nurse Name: Sidney Jackson MD Position: [facility] Physician - Primary Care Member Role: PCP Address: Address: [address] [place] [address], [address] [place] [address]- Name: Ana María Ugarte RN Position: [facility] RN Member Role: Primary Care Nurse Name: Nayana Reyes RN Position: [facility] RN Member Role: Primary Care Nurse Name: Capo Sales RN Position: [facility] RN Member Role: Primary Care Nurse Name: Yenni Medellin RN Position: [facility] RN Member Role: Primary Care Nurse Name: Anna Cespedes RN Position: [facility] RN Member Role: Primary Care Nurse Name: Gabino Cespedes RN Position: [facility] RN Member Role: Primary Care Nurse Care Team Related Persons Name: MARK CLAY Address: home [address] [address] [facility] Name: DORIS KNUTSON Address: home [address] [place] [address]
--- OUTSIDE RECORDS SUMMARY | 2024-02-24 19:46 | XMS_ITS | Continuity of Care Document ---
Author Organization [facility] Address [address] [place] [address]- Care Team Providers Care Official Court Interpreter Name Role Phone Sidney Jackson MD Primary Care Physician Encounter [facility] Date(s): 09/04/23 - 10/04/23 [facility] [address] [place] [address]- [place] Allergies, Adverse Reactions, Alerts Substance Reaction Severity [...] opioid drug. Start Date: 09/13/23 Status: Ordered benztropine 1 mg oral tablet 1 mg, 1, tablet, By Mouth, Daily at bedtime, # 30 tablet, Refills 0, Tot. Refills 0, Maintenance, 02/07/23 12:50:00 EDT, Route to Pharmacy Electronically, [facility], Partialfill upon patient request if the prescription is fo... Start Date: 02/07/23 Status: Ordered clozapine 100 mg oral tablet 3 tablet = 300 mg, By Mouth, Daily at bedtime, # 90 tablet, 1 Refills, Maintenance, 02/07/23 12:50:00 EDT, [facility], Partial fill upon patient request if the prescription is for a schedule II opioid drug., 165, cm, 01/31/23... Start Date: 02/07/23 Status: Ordered desmopressin 0.2 mg oral tablet 1 tablet = 0.2 mg, By Mouth, Daily at bedtime, 0 Refills, Maintenance, 09/13/23 22:45:00 EST, Partial fill upon patient request if the prescription is for a schedule II opioid drug. Start Date: 09/13/23 Status: Ordered divalproex sodium 500 mg oral tablet, extended release 3 tablet = 1,500 mg, By Mouth, Daily at bedtime, # 90 tablet, 1 Refills, Maintenance, 02/07/23 12:51:00 EDT, ER Tablet, [facility], Partial fill upon patient request if the prescription is for a schedule II opioid drug., 165,... Start Date: 02/07/23 Status: Ordered docusate sodium 100 mg oral tablet = 100 mg, By Mouth, 2 times a day, # 60 tablet, 0 Refills, Maintenance, 02/07/23 12:51:00 EDT, Tablet, [facility], Partial fill upon patient request if the prescription is for a schedule II opioid drug., 165, cm, 01/31/23 0:39... Start Date: 02/07/23 Status: Ordered docusate-senna 50 mg-8.6 mg oral capsule 2 capsule, By Mouth, Daily in PM, # 60 capsule, 0 Refills, Maintenance, 09/09/23 22:20:00 EST, Capsule, [facility] Partial fill upon patient request if the prescription is for a schedule II opioid drug., 2 capsule By Mouth Da... Start Date: 09/09/23 Status: Ordered famotidine 20 mg oral tablet 20 mg, 1, tablet, By Mouth, Daily, # 30 tablet, Refills 0, Maintenance, 09/13/23 22:45:00 EST, Partial fill upon patient request if the prescription is for a schedule II opioid drug. Start Date: 09/13/23 Status: Ordered fluPHENAZine decanoate 25 mg/mL injectable solution = 25 mg, Intramuscular, Every 21 days, Last given 01/26/23 due 02/16/23, # 1 kit, 1 Refills, Maintenance, 02/07/23 12:51:00 EDT, [facility] , Partial fill upon patient request ifthe [...] opioid drug. Start Date: 09/13/23 Status: Ordered metFORMIN 500 mg oral tablet 1 each = 500 mg, By Mouth, 2 times a day, # 60 tablet, 1 Refills, Maintenance, 02/07/23 12:51:00 EDT, Tablet, [facility] Partial fill upon patient request if the prescription is for a schedule II opioid drug., 165, cm, ... Start Date: 02/07/23 Status: Ordered Myrbetriq 25 mg oral tablet, extended release 1 tablet = 25 mg, By Mouth, Daily, # 30 tablet, 5 Refills, Maintenance, 09/19/23 15:11:00 EST, [facility] Partial fill upon patient request if the prescription is for a schedule II opioid drug., 165, cm, 09/14/23 7:11:00 EST,... Start Date: 09/19/23 Status: Ordered Problem List Condition Confirmation Course [...] Team Personnel Name: Lawrence Cano RN Position: [facility] RN Member Role: Primary Care Nurse Name: Nayana Bradshaw RN Position: S RN Member Role: Primary Care Nurse Name: Ana María Espino RN Position: S RN Member Role: Primary Care Nurse Name: Raji Somers RN Position: S RN Member Role: Primary Care Nurse Name: Ulisses Barboza Position: S RN Member Role: Primary Care Nurse Name: Dahiana Thrasher RN Position: [facility] ED RN W/OE and Tasks Member Role: Primary Care Nurse Name: Rick Chi RN Position: [facility] RN Member Role: Primary Care Nurse Name: Maggi Fagan RN Position: [facility] ED RN W/OE and Tasks Member Role: Primary Care Nurse Name: Lawson Rivers RN Position: [facility] RN Supv Member Role: Primary Care Nurse Name: Mark Mccullough RN Position: [facility] RN Member Role: Primary Care Nurse Name: Sidney Jackson MD Position: [facility] Physician - Primary Care Member Role: PCP Address: Address: [address] [place] [address], [address] [place], [place] [address] Name: Nayana Reyes RN Position: [facility] RN Member Role: Primary Care Nurse Name: Anna Cespedes RN Position: [facility] RN Member Role: Primary Care Nurse Name: Gabino Cespedes RN Position: [facility] RN Member Role: Primary Care Nurse Care Team Related Persons Name: BUZZ CASTELLANOS Address: [address] [place] [address] Name: MARK CLAY Address: [address] [place] [address] Name: DORIS KNUTSON Address: home [address] [place] [address]
--- OUTSIDE RECORDS SUMMARY | 2024-02-24 19:46 | XMS_ITS | Continuity of Care Document ---
Author Organization [facility] Franky Green n's [facility] Address [address] [place] [address]- Care Team Providers Care Emergency Dept Tech Name Role Phone Sidney Jackson MD Primary Care Physician Encounter [facility] Date(s): 11/01/23 - 12/01/23 [facility] Franky Russell[facility] [address] [place] [address]- Allergies, Adverse Reactions, Alerts Substance Reaction Severity Status ibuprofen Active haloperidol Active lithium Active Benadryl Active penicillin Active Bactrim DS 1 acute renal failure Active Grapes Active Apples Active 1had episodes of acute renal failure during admission to [facility] -- resolved both times off [...] 02/07/23 12:50:00 EDT, Route to Pharmacy Electronically, [facility]-, Partialfill upon patient request if the prescription [...] tablet, 1 Refills, Maintenance, 02/07/23 12:50:00 EDT, [facility]-, Partial fill upon patient request if the prescription is for a schedule II opioid drug., 165, cm, 01/31/23... Start Date: 02/07/23 Status: Ordered divalproex sodium 500 mg oral tablet, extended release 3 tablet = 1,500 mg, By Mouth, Daily at bedtime, # 90 tablet, 1 Refills, Maintenance, 02/07/23 12:51:00 EDT, ER Tablet, [facility]- , Partial fill upon patient request if the prescription is for a schedule II opioid drug., 165,... Start Date: 02/07/23 Status: Ordered docusate sodium 100 mg oral tablet = 100 mg, By Mouth, 2 times a day, # 60 tablet, 0 Refills, Maintenance, 02/07/23 12:51:00 EDT, Tablet, [facility]-, Partial fill upon patient request if the [...] 1 Refills, Maintenance, 02/07/23 12:51:00 EDT, Tablet, [facility]-, Partial fill upon patient request if the prescription is for a schedule II opioid drug., 165, cm, ... Start Date: 02/07/23 Status: Ordered MiraLax oral powder for reconstitution = 17 Gm, By Mouth, Daily, dissolve in 4 to 8 oz of beverage, # 119 Gm, 0 Refills, Maintenance, 11/12/23 9:15:00 EST, REC Powder, [facility]-, Partial fill upon patient requestif the prescription is for a schedule II opioid kristi... Start Date: 11/12/23 Stop Date: 11/19/23 Status: Ordered trospium 60 mg oral capsule, extended release 1 capsule = 60 mg, By Mouth, Daily in AM, # 30 capsule, 5 Refills, Maintenance, 11/27/23 10:50:00 EDT, CR Capsule, [facility], Partial fill upon patient request if [...] Team Personnel Name: Lawrence Cano RN Position: [facility] RN Member Role: Primary Care Nurse Name: Nayana Bradshaw RN Position: [facility] RN Member Role: Primary Care Nurse Name: Ana María Espino RN Position: [facility] RN Member Role: Primary Care Nurse Name: Raji Somers RN Position: [facility] RN Member Role: Primary Care Nurse Name: Ulisses Barboza Position: [facility] RN Member Role: Primary Care Nurse Name: Dahiana Thrasher RN Position: [facility] ED RN W/OE and Tasks Member Role: Primary Care Nurse Name: Rick Chi RN Position: [facility] RN Member Role: Primary Care Nurse Name: Maggi Fagan RN Position: [facility] ED RN W/OE and Tasks Member Role: Primary Care Nurse Name: Lawson Rivers RN Position: [facility] RN Supv Member Role: Primary Care Nurse Name: Mark Mccullough RN Position: [facility] RN Member Role: Primary Care Nurse Name: Sidney Jackson MD Position: [facility] Physician - Primary Care Member Role: PCP Address: Address: [address] [place] [address], [address] [place] [address]- Name: Nayana Reyes RN Position: [facility] RN Member Role: Primary Care Nurse Name: Anna Cespedes RN Position: S RN Member Role: Primary Care Nurse Name: Gabino Cespedes RN Position: [facility] RN Member Role: Primary Care Nurse Care Team Related Persons Name: MARK CLAY Address: home [address] [place] [id number] Name: FCIRENÉ Name: DORIS KNUTSON Address: home [address] [place] [id number]
--- OUTSIDE RECORDS SUMMARY | 2024-02-24 19:46 | XMS_ITS | Continuity of Care Document ---
Author Organization [facility] ter Address [address] [place] [address]- Care Team Providers Care Server Developer Name Role Phone Manuel PADILLA, Sidney Trejo Primary Care Physician Encounter [facility] Date(s): 11/28/23 - 11/28/[address] [address]- Discharge Disposition: A-D/C Home Attending Physician: Catrachito Mohr MD Admitting Physician: Catrachito Mohr MD Referring Physician: Not on Staff, Referring MD Allergies, Adverse Reactions, Alerts Substance Reaction Severity Status ibuprofen Active haloperidol Active lithium Active penicillin Active Benadryl Active Bactrim DS 1 acute renal failure Active Apples Active Grapes Active 1had episodes of acute renal failure during admission to [facility] -- resolved both times off [...] Pharmacy Electronically, [facility]-, Partialfill upon patient request if the prescription [...] 12:50:00 EDT, [facility]-, Partial fill upon patient request if the prescription is for a schedule II opioid drug., 165, cm, 01/31/23... Start Date: 02/07/23 Status: Ordered divalproex sodium 500 mg oral tablet, extended release 3 tablet = 1,500 mg, By Mouth, Daily at bedtime, # 90 tablet, 1 Refills, Maintenance, 02/07/23 12:51:00 EDT, ER Tablet, [facility]- , Partial fill upon patient request if the prescription is for a schedule II opioid drug., 165,... Start Date: 02/07/23 Status: Ordered docusate sodium 100 mg oral tablet = 100 mg, By Mouth, 2 times a day, # 60 tablet, 0 Refills, Maintenance, 02/07/23 12:51:00 EDT, Tablet, [facility]-, Partial fill upon patient request if the [...] EDT, Tablet, [facility]-, Partial fill upon patient request if the prescription is for a schedule II opioid drug., 165, cm, ... Start Date: 02/07/23 Status: Ordered MiraLax oral powder for reconstitution = 17 Gm, By Mouth, Daily, dissolve in 4 to 8 oz of beverage, # 119 Gm, 0 Refills, Maintenance, 11/12/23 9:15:00 EST, REC Powder, [facility]-, Partial fill upon patient requestif the prescription is for a schedule II opioid kristi... Start Date: 11/12/23 Stop Date: 11/19/23 Status: Ordered trospium 60 mg oral capsule, extended release 1 capsule = 60 mg, By Mouth, Daily in AM, # 30 capsule, 5 Refills, Maintenance, 11/27/23 10:50:00 EDT, CR Capsule, [facility], Partial fill upon patient request if [...] recent to oldest [Reference Range]: 1 2 Height 165 cm (11/28/23 3:17 PM) Weight 91 kg (11/28/23 3:17 PM) Oxygen Saturation [94-100 %] 100 % (11/28/23 6:43 PM) 100 % (11/28/23 3:17 PM) Pulse Rate [55-90 bpm] 88 bpm (11/28/23 6:43 PM) 92 bpm *H* (11/28/23 3:17 PM) Body Mass Index [18.5-24.99 kg/m2] 33.43 kg/m2 *>HHI* (11/28/23 3:17 PM) Blood Pressure [90-138/55-84 mm Hg] 126/ 78mm Hg (11/28/23 6:43 PM) 133/68mm Hg (11/28/23 3:17 PM) Respiratory Rate [16-30 br/min] 17 br/mi n (11/28/23 6:43 PM) 16 br/min (11/28/23 3:17 PM) Temperature [96.8-100.4 DegF] 97.4 DegF (11/28/23 3:17 PM) Mode of Delivery (Oxygen) Room air (11/28/23 6:43 PM) Room air (11/28/23 3:17 PM) Blood pressure sites Arm, left (11/28/23 6:43 PM) Arm, left (11/28/23 3:17 PM) Temperature Route Oral (11/28/23 3:17 PM) Dry Weight 91 kg (11/28/23 3:17 PM) Weight Obtained Via Patient/family state d (11/28/23 3:17 PM) Dry Weight Obtained Via Patient/family s tated (11/28/23 3:17 PM) Social History Social History Type Response Smoking Status Former smoker, quit more than 30 days ago entered on: 09/27/20 Sex Patient Care team information Care Team Personnel Name: Lawrence Cano RN Position: [facility] RN Member Role: Primary Care Nurse Name: Nayana Bradshaw RN Position: S RN Member Role: Primary Care Nurse Name: Ana María Espino RN Position: S RN Member Role: Primary Care Nurse Name: Raji Somers RN Position: S RN Member Role: Primary Care Nurse Name: Ulisses Barboza Position: S RN Member Role: Primary Care Nurse Name: Dahiana Thrasher RN Position: [facility] ED RN W/OE and Tasks Member Role: Primary Care Nurse Name: Rick Chi RN Position: [facility] RN Member Role: Primary Care Nurse Name: Maggi Fagan RN Position: [facility] ED RN W/OE and Tasks Member Role: Primary Care Nurse Name: Lawson Rivers RN Position: [facility] RN Supv Member Role: Primary Care Nurse Name: Mark Mccullough RN Position: S RN Member Role: Primary Care Nurse Name: Sidney Jackson MD Position: [facility] Physician - Primary Care Member Role: PCP Address: Address: [address] [place] [address], [address] [place] [address]- Name: Nayana Reyes RN Position: S RN Member Role: Primary Care Nurse Name: Anna Cespedes RN Position: S RN Member Role: Primary Care Nurse Name: Gabino Cespeeds RN Position: [facility] RN Member Role: Primary Care Nurse Care Team Related Persons Name: FABIAN CLAYIC Address: [address] [place] [address] Name: [facility] RENÉ Name: DORIS KNUTSON Address: home [address] [place] [id number]
--- OUTSIDE RECORDS SUMMARY | 2024-02-24 19:46 | XMS_ITS | Continuity of Care Document ---
Author Organization [facility] Address [address] [place] [id number]- Care Team Providers Care Gas Blender Name Role Phone Gal PADILLA, Ana María Shepard Primary Care Physician Encounter [facility] Date(s): 02/17/24 - 02/17/[address] [address]- Encounter Diagnosis Bipolar disorder(Final) - 02/17/24 Diabetes(Final) - 02/17/24 Hyperglycemia(Final) - 02/17/24 Discharge Disposition: A-D/C Tad Attending Physician: Flex PADILLA, Valentine Sosa Admitting Physician: Valentine Mccord MD Referring Physician: Not on Staff, Referring MD Allergies, Adverse Reactions, Alerts Substance Reaction Severity Status codeine Active ibuprofen Active haloperidol Active lithium Active penicillin Active Benadryl Active Bactrim DS 1 acute renal failure Active Apples Active Grapes Active 1had episodes of acute renal failure during admission to [facility] -- resolved both times off Bactrim and [...] tablet, 0 Refills, Maintenance, 12/31/23 8:14:00EDT, Tablet, [facility], Partial fill upon patient request if the prescription is for a schedule II opioid drug., 165, cm, 12/30/23 20:24:00... Start Date: 12/31/23 Stop Date: 01/30/24 Status: Ordered benztropine 0.5 mg oral tablet 0.5 mg, 1, tablet, By Mouth, 2 times a day, # 60 tablet, Refills 0, Tot. Refills 0, Maintenance, 12/31/23 8:15:00 EDT, Route to Pharmacy Electronically, [facility], Partial fill upon patient request if the prescription is for a schedule II o... Start Date: 12/31/23 Stop Date: 01/30/24 Status: Ordered cetirizine 5 mg oral tablet 1 tablet = 5 mg, By Mouth, Daily at bedtime, PRN Other, allergy symptoms, # 30 tablet, 0 Refills, Maintenance, 12/31/23 8:15:00 EDT, Tablet, [facility], Partial fill upon patient request ifthe prescription is for a schedule II opioid drug.,... Start Date: 12/31/23 Stop Date: 01/30/24 Status: Ordered cholecalciferol 1000 intl units oral tablet 1 tablet = 25 mcg, By Mouth, Daily, # 30 tablet, 0 Refills, Maintenance, 12/31/23 8:15:00 EDT, Tablet, [facility], Partial fill upon patient request if the prescription is for a schedule IIopioid drug., 165, cm, 12/30/23 20:24:00 EDT, [place]... Start Date: 12/31/23 Stop Date: 01/30/24 Status: Ordered clozapine 100 mg oral tablet See Instructions, 250 (2.5 tablets) mg By Mouth Daily at bedtime 30 days, # 75 tablet, 0 Refills, Maintenance, 12/31/23 8:16:00 EDT, Tablet, [facility], Partial fill upon patient request ifthe prescription is for a schedule II opioid drug.,... Start Date: 12/31/23 Status: Ordered divalproex sodium 500 mg oral enteric coated tablet 3 tablet = 1,500 mg, By Mouth, Daily at bedtime, # 90 tablet, 0 Refills, Maintenance, 12/31/23 8:17:00 EDT, Tablet, [facility], Partial fill upon patient request if the prescription is for a schedule II opioid drug., 165, cm, 12/30/23 20:24:... Start Date: 12/31/23 Stop Date: 01/30/24 Status: Ordered docusate sodium 100 mg oral capsule 100 mg, 1, capsule, By Mouth, 2 times a day, PRN, # 60 capsule, Refills 0, Tot. Refills 0, Maintenance, Constipation, 12/31/23 8:18:00 EDT, Route to Pharmacy Electronically, [facility], Partial fill upon patient request if the prescription i... Start Date: 12/31/23 Stop Date: 01/30/24 Status: Ordered FLUoxetine 20 mg oral capsule 20 mg, 1, capsule, By Mouth, Daily, # 30 capsule, Refills 0, Tot. Refills 0, Maintenance, 12/31/23 8:18:00 EDT, Route to Pharmacy Electronically, [facility], Partial fill upon patient request if [...] 0 Refills, Maintenance, 12/31/23 8:19:00 EDT, Tablet, [facility], Partial fill upon patient request if [...] 12/31/23 8:20:00 EDT, Route to Pharmacy Electronically, [facility], Partial fill upon patient request if [...] Exam Date Time Procedure Performing Provider Status 02/17/24 12:32 PM Thoracic Spine 3 Views Neal Cleveland; Auth (Verified) Notes: (Thoracic Spine 3 Views) Reason For Exam: Pain RESULT: Thoracic Spine 3 Views Thoracic Spine 3 Views Hx of Present Illness: pt coming form 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 FINDINGS: No evidence of fracture or subluxation within the thoracic spine. 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 DISH WSN: [id number] Ordering Physician: Ronda Guaman Dictated By: Yusuf Hung MD Dictated Date/Time: 02/17/24 1:29 pm Reviewed By: Yusuf Hung MD Signed By: Yusuf Hung MD Signed Date/Time: 02/17/24 1:29 pm Transcribed By: RANI Transcribed Date/Time: 02/17/24 1:28 pm * Exam Date Time Procedure Performing Provider Status 02/17/24 12:32 PM Chest 2 Views Frontal and Lat Beth Cleveland; Auth (Verified) Notes: (Chest 2 Views Frontal and Lat) Reason For Exam: fall, back/chest pain;Other: RESULT: Chest 2 Views Frontal and Lat Chest 2 Views Frontal and Lat Hx of Present Illness: pt coming form retirement s p unwitnessed fall pt states 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 FINDINGS: LINES AND TUBES: None. LUNGS AND PLEURA: Low lung volumes with mild basilar atelectasis. Lungs are otherwise clear with no consolidation. No pleural effusion. No pneumothorax. HEART, MEDIASTINUM AND COLIN: Heart is normal in size. Normal mediastinal and hilar contour. BONES AND SOFT TISSUES: No acute abnormality. Calcific tendinopathy of the rotator cuff of both shoulders. Mild degenerative changes of the thoracic spine. IMPRESSION: No radiographic evidence of an acute cardiopulmonary process. WSN: [id number] Ordering Physician: Ronda Guaman Dictated By: Rock Deng MD Dictated Date/Time: 02/17/24 12:53 p Reviewed By: Rock Deng MD Signed By: Rock Deng MD Signed Date/Time: 02/17/24 12:53 pm Transcribed By: RANI Transcribed Date/Time: 02/17/24 12:52 pm * Exam Date Time Procedure Performing Provider Status 02/17/24 6:[address] Cervical Spine W/O Contrast Taisha Mckay; Auth (Verified) Notes: (CT Cervical Spine W/O Contrast) Reason For Exam: Neck trauma, dangerous injury mechanism;Other: RESULT: CT Cervical Spine W/O Contrast CT Head/Brain W/O Contrast, CT Cervical Spine W/O Contrast INDICATION: Hx of Present Illness: pt coming form retirement s p unwitnessed fall pt states fallingdown flight of stair facility staff next door did not hear a fall pt denies head and neck pain unknown head strike unknown LOC neg thinners pt endorsing knee pain found to have scrape and s; Reason: Other:; Head trauma, mod-severe; Clinical Question(s): Hematoma; Order Comment: TECHNIQUE: Noncontrast head CT using axial technique was reconstructed in axial and coronal planes.Noncontrast spiral CT through the cervical spine was formatted in 3 planes. Automatic tube modulation was used for the cervical spine and iterative dose reconstruction was used for both the head and cervical spine to optimize scan parameters and image quality. COMPARISON: 02/15/2024 FINDINGS: Images are degraded by motion artifact. No evidence of intracranial hemorrhage No intra or extra-axial mass Echevarria-white matter differentiation is preserved No evidence of calvarial fracture. Subcentimeter right thyroid lobe nodule No evidence of cervical spine fracture. Stable findings of DISH Slight increase in size of a 0.6 cm right parotid nodule. Measured 0.3 cm 12/12/2023 IMPRESSION: No acute abnormality of the head or cervical spine. Slight increase in size of a round 0.6 cm right parotid nodule when compared with 12/12/2023. This is likely a right parotid lymph node. Follow-up with ultrasound may be considered WSN: [id number] Ordering Physician: Nataliya Aviles Dictated By: Yusuf Hung MD Dictated Date/Time: 02/17/24 7:01 am Reviewed By: Yusuf Hung MD Signed By: Yusuf Hung MD Signed Date/Time: 02/17/24 7:01 am Transcribed By: RANI Transcribed Date/Time: 02/17/24 6:48 am * Exam Date Time Procedure Performing Provider Status 02/17/24 6:[address] Head/Brain W/O Contrast Mathew Mckay; Auth (Verified) Notes: (CT Head/Brain W/O Contrast) Reason For Exam: Head trauma, mod-severe;Other: RESULT: CT Head/Brain W/O Contrast CT Head/Brain W/O Contrast, CT Cervical Spine W/O Contrast INDICATION: Hx of Present Illness: pt coming form retirement s p unwitnessed fall pt states fallingdown flight of stair facility staff next door did not hear a fall pt denies head and neck pain unknown head strike unknown LOC neg thinners pt endorsing knee pain found to have scrape and s; Reason: Other:; Head trauma, mod-severe; Clinical Question(s): Hematoma; Order Comment: TECHNIQUE: Noncontrast head CT using axial technique was reconstructed in axial and coronal planes.Noncontrast spiral CT through the cervical spine was formatted in 3 planes. Automatic tube modulation was used for the cervical spine and iterative dose reconstruction was used for both the head and cervical spine to optimize scan parameters and image quality. COMPARISON: 02/15/2024 FINDINGS: Images are degraded by motion artifact. No evidence of intracranial hemorrhage No intra or extra-axial mass Echevarria-white matter differentiation is preserved No evidence of calvarial fracture. Subcentimeter right thyroid lobe nodule No evidence of cervical spine fracture. Stable findings of DISH Slight increase in size of a 0.6 cm right parotid nodule. Measured 0.3 cm 12/12/2023 IMPRESSION: No acute abnormality of the head or cervical spine. Slight increase in size of a round 0.6 cm right parotid nodule when compared with 12/12/2023. This is likely a right parotid lymph node. Follow-up with ultrasound may be considered WSN: [id number] Ordering Physician: Nataliya Aviles Dictated By: Yusuf Hung MD Dictated Date/Time: 02/17/24 7:01 am Reviewed By: Yusuf Hung MD Signed By: Yusuf Hung MD Signed Date/Time: 02/17/24 7:01 am Transcribed By: RANI Transcribed Date/Time: 02/17/24 6:48 am Vital Signs Most recent to oldest [Reference Range]: 1 2 3 Oxygen Saturation [94-100 %] 100 % (02/17/24 6:47 PM) 100 % (02/17/24 5:00 PM) 98 % (02/17/24 1:08 PM) Pulse Rate [55-90 bpm] 95 bpm *H* (02/17/24 6:47 PM) 72 bpm (02/17/24 5:00 PM) 66 bpm (02/17/24 1:08 PM) Blood Pressure [90-138/55-84 mm Hg] 129/88mm Hg (02/17/24 6:47 PM) 112/66mm Hg (02/17/24 5:00 PM) 98/72mm Hg (02/17/24 1:08 PM) Respiratory Rate [16-30 br/min] 14 br/min *L* (02/17/24 6:47 PM) 14 br/min *L* (02/17/24 5:00 PM) 16 br/min (02/17/24 1:08 PM) Temperature [96.8-100.4 DegF] 97.5 DegF (02/17/24 6:47 PM) 97.6 DegF (02/17/24 2:00 PM) 97.6 DegF (02/17/24 7:25 AM) Mode of Delivery (Oxygen) Room air (02/17/24 6:47 PM) Room air (02/17/24 5:00 PM) Room air (02/17/24 1:08 PM) Blood pressure sites Arm, left (02/17/24 6:47 PM) Arm, left (02/17/24 5:00 PM) Arm, left (02/17/24 1:08 PM) Temperature Route Oral (02/17/24 6:47 PM) Rectal (02/17/24 2:00 PM) Oral (02/17/24 7:25 AM) Social History Social History Type Response Smoking Status Former smoker, quit more than 30 days ago entered on: 09/27/20 Sex EKG study * Event Display: ECG 12-Lead Authored Date: Please click on pdf link to open report * Event Display: ECG 12-Lead Authored Date: Ventricular Rate: 88 BPM Atrial Rate: 88 BPM P-R Interval: 146 ms QRS Duration: 82 ms Q-T Interval: 344 ms QTC Calculation(Bazett): 416 ms P Essex: 40 degrees R Essex: -27 degrees T [place]: 29 degrees Normal sinus rhythm Cannot rule out Inferior infarct (cited on or before 28-JAN-2024) Abnormal ECG When compared with ECG of 15-FEB-2024 09:50, No significant change was found Confirmed by ELIZABETH SWEENEY MD ([id number]) on 02/17/2024 7:39:20 PM [place]: ELIZABETH SWEENEY MD Note * Ronda Guaman DO: PERFORM Event Display: Patient Education Leaflets Authored Date: [id number] Fall??Prevention ?? [id number] Fall??Prevention Falls often take place due to [...] more often. Last Reviewed Date: 2021 ?? [id number] [employer]. All rights reserved. This information is not intended as a substitute for professional medical care. Always follow your healthcare professional's instructions. ?? * Ronda Guaman DO: PERFORM Event Display: Patient Education Leaflets Authored Date: [id number] Diabetes with High Blood Sugar ?? [id number] Diabetes with High Blood Sugar You have been treated for high blood sugar (hyperglycemia). This may be because of an infection or other illness. This may also be from eating too many sweets or starches. Or it may be from not taking enough insulin. Or not taking other diabetes medicine as prescribed. Home care Check your blood sugar level at least 2 times a day. Write down the results. Do this before breakfast. And do it again before dinner. If you take insulin, also write down your routine insulin dose. Note any other doses you needed based on your sliding scale. Or as advised by your healthcare provider. Do this for the next 3 to 5 days. High blood sugar may cause symptoms that you can learn to spot. These include: ??? Peeing often ??? Thirst ??? Headache ??? Breath that smells fruity ??? Upset stomach (nausea) or vomiting ??? Belly pain If you have symptoms of high blood sugar, use a blood test to find out what your blood sugar level is. If it is above your normal range, use the sliding scale regular insulin dose from your healthcare provider. Call your provider for advice if you weren't given a range for your insulin dose. If your blood sugar is over 240 mg/dL, check your pee (urine) for ketones. ?? Follow-up care Follow up with your healthcare provider, or as advised. You may need to meet with your provider in the next week. You'll likely look at your blood sugar records together. You may need to change your dose of insulin or other diabetes medicine. You may also be advised to use a continuous glucose monitoring system. This is to help give you and your healthcare team a broader picture of your blood sugar control. ?? When to get medical advice Call your healthcare provider right away if these occur: ??? Symptoms of high blood sugar that don't get better with the treatment your provider advised. This is especially true if you also have ketones in your urine. ??? Blood sugar over 300 mg/dL. If you can???t reach your provider, go to a hospital emergency room or urgent care center. ?? Call 911 Call 911 if you have any of these: ??? Confusion ??? Dizziness, lightheadedness, or loss of consciousness ??? Shortness of breath ??? Chest pain ??? Weakness of an arm, leg, or 1 side of the face ???Sudden trouble with speech or vision ?? Last Reviewed Date: 2022 ?? [id number] [employer]. All rights reserved. This information is not intended as a substitute for professional medical care. Always follow your healthcare professional's instructions. ?? Patient Care team information Care Team Personnel Name: Ana María Santo MD Position: [facility] Physician - Primary Care Member Role: PCP Address: Address: [address] [place] [address] [facility] [place] [address]- Name: Alexandra Whipple RN Position: S RN Member Role: Primary Care Nurse Name: Lawrence Cano RN Position: S RN Member Role: Primary Care Nurse Name: Nayana Bradshaw RN Position: S RN Member Role: Primary Care Nurse Name: Ana María Espino RN Position: [facility] RN Member Role: Primary Care Nurse Name: Raji Somers RN Position: [facility] RN Member Role: Primary Care Nurse Name: Ulisses Barboza Position: [facility] RN Member Role: Primary Care Nurse Name: Dahiana Thrasher RN Position: [facility] ED RN W/OE and Tasks Member Role: Primary Care Nurse Name: Shira Ewing RN Position: [facility] RN Member Role: Primary Care Nurse Name: Rick Chi RN Position: [facility] RN Member Role: Primary Care Nurse Name: Maggi Fagan RN Position: [facility] ED RN W/OE and Tasks Member Role: Primary Care Nurse Name: Marlo Davies RN Position: [facility] RN Member Role: Primary Care Nurse Name: Moni Rodriguez Position: [facility] RN Member Role: Primary Care Nurse Name: Lawson Rivers RN Position: [facility] RN Supv Member Role: Primary Care Nurse Name: Mark Mccullough RN Position: [facility] RN Member Role: Primary Care Nurse Name: Ana María Ugarte RN Position: [facility] RN Member Role: Primary Care Nurse Name: Nayana Reyes RN Position: [facility] RN Member Role: Primary Care Nurse Name: Capo Sales RN Position: [facility] RN Member Role: Primary Care Nurse Name: Yenni Medellin RN Position: [facility] RN Member Role: Primary Care Nurse Name: Anna Cespedes RN Position: [facility] RN Member Role: Primary Care Nurse Name: Gabino Cespedes RN Position: [facility] RN Member Role: Primary Care Nurse Care Team Related Persons Name: FABIAN CLAYIC Address: home [address] [place] [address] [address] [place] [address] [facility] Name: DORIS KNUTSON Address: [address] [place] [address]
--- OUTSIDE RECORDS SUMMARY | 2024-02-24 19:46 | XMS_ITS | Continuity of Care Document ---
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 Name Role Phone Carli FRANZ, Ludy H Primary Care Physician Encounter [facility] [place] Date(s): 01/08/21 - 05/08/21 [facility] [address] [place] [id number]- Encounter Diagnosis Diabetes(Discharge Diagnosis) - 04/08/21 Attending Physician: Petra Funk MD Admitting Physician: Petra Funk MD Referring Physician: Sidney Jackson MD Allergies, Adverse Reactions, Alerts Substance Reaction Severity Status ibuprofen Active haloperidol Active lithium Active penicillin Active Benadryl Active Depakote 1 Active Bactrim DS 2 acute renal failure Active [place] Active Glutens Grapes Active Apples Active Grapes Active 1neutropenia, 2011 2had episodes of acute renal failure during admission [...] oral tablet 650 mg, By Mouth, Every 4 hours, PRN, Refills 0, Maintenance, Pain , Mild, 12/25/18 9:09:12 EDT Start Date: 12/25/18 Status: Ordered atorvastatin 20 mg oral tablet 1 tablet = 20 mg, By Mouth, Daily, 0 Refills, Maintenance, 09/28/20 11:58:00 EST, Partial fill uponpatient request if the prescription is for a schedule II opioid drug. Start Date: 09/28/20 Status: Ordered benztropine 0.5 mg oral tablet 0.5 mg, By Mouth, 2 times a day, Refills 0, Maintenance, 12/25/18 9:13:22 EDT Start Date: 12/25/18 Status: Ordered cholecalciferol 1000 intl units oral tablet = 2,000 International_Units, By Mouth, Daily, 0 Refills, Maintenance, 12/25/18 9:09:22 EDT, Tablet Start Date: 12/25/18 Status: Ordered cloNIDine 0.1 mg oral tablet 0.1 mg, 1, tablet, By Mouth, 2 times a day, Refills 0, Maintenance, 09/28/20 11:58:00 EST, Partial fill upon patient request if the prescription is for a schedule II opioid drug. Start Date: 09/28/20 Status: Ordered clozapine 100 mg oral tablet = 250 mg, By Mouth, Daily at bedtime, 0 Refills, Maintenance, 12/25/18 9:09:40 EDT, Tablet Start Date: 12/25/18 Status: Ordered Colace sodium 100 mg oral capsule 200 mg, 2, capsule, By Mouth, 2 times a day, Refills 0, Maintenance, 12/25/18 9:12:35 EDT Start Date: 12/25/18 Status: Ordered cyanocobalamin 1000 mcg oral tablet 500 mcg, By Mouth, Daily, Refills 0, Maintenance, 12/25/18 9:10:02 EDT Start Date: 12/25/18 Status: Ordered Desmopressin 0 Refills, Maintenance, 09/28/20 11:58:00 EST, Partial fill upon patient request if the prescription is for a schedule II opioid drug. Start Date: 09/28/20 Status: Ordered DULoxetine 40 mg oral delayed release capsule 1 capsule = 40 mg, By Mouth, Daily, 0 Refills, Maintenance, 09/28/20 11:59:00 EST, Partial fill upon patient request if the prescription is for a schedule II opioid drug. Start Date: 09/28/20 Status: Ordered Fluphenazine DECANOATE Inj = 25 mg, Intramuscular, Every 21 days, 0 Refills, Maintenance, 09/28/20 11:59:00 EST, Partial fill upon patient request if the prescription is for a schedule II opioid drug. Start Date: 09/28/20 Status: Ordered furosemide 40 mg oral tablet 40 mg, By Mouth, Daily, Refills 0, Maintenance, 12/25/18 9:15:56 EDT Start Date: 12/25/18 Status: Ordered HydroCORTisone 1% Topical 0 Refills, Maintenance Start Date: 09/28/20 Status: Ordered insulin glargine 100 u/ml subcutaneous solution = 35 units, Subcutaneous Injection, Daily at bedtime, 0 Refills, Maintenance, 12/25/18 9:11:10 EDT,Injection Start Date: 12/25/18 Status: Ordered Insulin Lispro 3-15 units, Subcutaneous Injection, 3 times a day before meals, << Sliding Scale Comments >> 150 - 199 3 units Call if less than 100 200 - 249 6 units 250 - 299 9 units 300 - 349 12 - 399 15 units Call if greater than 400 ... Start Date: 12/25/18 Status: Ordered lamotrigine 150 mg oral tablet By Mouth, Daily at bedtime, 0 Refills, Maintenance, 12/25/18 9:12:50 EDT, Tablet Start Date: 12/25/18 Status: Ordered Lantus 100 u/ml subcutaneous solution = 50 units, Subcutaneous Infusion, Daily in AM, 0 Refills, Maintenance, 10/12/18 13:43:32 EST Start Date: 10/12/18 Status: Ordered LORazepam 1 mg oral tablet 1 tablet = 1 mg, By Mouth, 3 times a day, 0 Refills, Maintenance, 09/28/20 12:01:00 EST, Partial fill upon patient request if the prescription is for a schedule II opioid drug. Start Date: 09/28/20 Status: Ordered Mag-al Plus XS By Mouth, 3 times a day before meals and bedtime, 0 Refills, Maintenance, 09/28/20 12:01:00 EST, Partial fill upon patient request if the prescription is for a schedule II opioid drug. Start Date: 09/28/20 Status: Ordered melatonin 10 mg oral tablet 1 tablet = 10 mg, By Mouth, Daily at bedtime, 0 Refills, Maintenance, 09/28/20 11:59:00 EST, Partial fill upon patient request if the prescription is for a schedule II opioid drug. Start Date: 09/28/20 Status: Ordered melatonin 3 mg oral tablet 2 tablet = 6 mg, By Mouth, 0 Refills, Maintenance, 10/12/18 13:42:47 EST Start Date: 10/12/18 Status: Ordered Milk of Magnesia By Mouth, Daily at bedtime, 0 Refills, Maintenance, 09/28/20 12:01:00 EST, Partial fill upon patient request if the prescription is for a schedule II opioid drug. Start Date: 09/28/20 Status: Ordered nitrofurantoin macrocrystals-monohydrate 100 mg oral capsule 1 capsule = 100 mg, By Mouth, 2 times a day, for 7 days, # 14 capsule, 0 Refills, Acute 05/14/21 2:16:00 EDT, 05/07/21 2:16:00 EDT, Capsule, [facility] [place], [place], Partial fill upon patient request if the prescription is for a... Start Date: 05/07/21 Stop Date: 05/14/21 Status: Ordered Olanzapine 0 Refills, Maintenance, 09/28/20 12:00:00 EST, Partial fill upon patient request if the prescription is for a schedule II opioid drug. Start Date: 09/28/20 Status: Ordered omeprazole 20 mg oral delayed release tablet 1 tablet = 20 mg, By Mouth, Daily, 0 Refills, Maintenance, 09/28/20 12:00:00 EST, Partial fill uponpatient request if the prescription is for a schedule II opioid drug. Start Date: 09/28/20 Status: Ordered pantoprazole 20 mg oral delayed release tablet = 20 mg, By Mouth, Daily, 0 Refills, Maintenance, 12/25/18 9:13:02 EDT, EC Tablet Start Date: 12/25/18 Status: Ordered perphenazine 4 mg oral tablet 4 mg, 1, tablet, By Mouth, 2 times a day, Refills 0, Maintenance, 10/12/18 13:39:01 EST Start Date: 10/12/18 Status: Ordered Trazodone By Mouth, 2 times a day, 0 Refills, Maintenance, 09/28/20 12:02:00 EST, Partial fill upon patient request if the prescription is for a schedule II opioid drug. Start Date: 09/28/20 Status: Ordered Problem List Condition Effective Dates Status Health Status Inform ant Amenorrhea(Confirmed) Active Bipolar disorder(Confirmed) Active Body mass index 30+ - obesity(Confirmed) Active Chronic renal impairment(Confirmed) Active Hyperlipidemia(Confirmed) Active Primary hypertension(Confirmed) Active Schizoaffective disorder(Confirmed) Active Type II diabetes mellitus(Confirmed) Active Diagnosis Diagnosis Type Effective Dates Health Status Clini nancy Service Informant Diabetes Discharge Diagnosis 04/08/21 Social History Social History Type Response Smoking Status Former smoker, quit more than 30 days ago entered on: 09/27/20 Sex
--- OUTSIDE RECORDS SUMMARY | 2024-02-24 19:46 | XMS_ITS | Continuity of Care Document ---
Author Organization 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 [address] [place] [id number]- Attending Physician: Luanne Candelario Admitting Physician: AdmtrLuanne Referring Physician: Admtr, Ar8 Allergies, Adverse Reactions, Alerts Substance Reaction Severity Status ibuprofen Active haloperidol Active lithium Active penicillin Active Benadryl Active Bactrim DS 1 acute renal failure Active Grapes Active Apples Active 1had episodes of acute renal failure during admission to [facility] -- resolved both times off Bactrim and [...] 1 Refills, Maintenance, 04/11/22 22:53:00 EDT, Tablet, [facility], Partial fill upon patient request if the prescription is for a schedule II opioid drug., 165, cm, 04/11/22 12:5... Start Date: 04/11/22 Status: Ordered benztropine 0.5 mg oral tablet 0.5 mg, 1, tablet, By Mouth, 2 times a day, # 60 tablet, Refills 1, Tot. Refills 1, Maintenance, 04/11/22 22:54:00 EDT, Route to Pharmacy Electronically, [facility], Partial fill upon patient request if the prescription is for... Start Date: 04/11/22 Status: Ordered clozapine 100 mg oral tablet 3 tablet = 300 mg, By Mouth, Daily at bedtime, # 90 tablet, 1 Refills, Maintenance, 04/11/22 22:54:00 EDT, [facility], Partial fill upon patient request if the prescription is for a schedule II opioid drug., 165kahlil, 04/11/22... Start Date: 04/11/22 Status: Ordered DDAVP 0.1 mg oral tablet 2 tablet = 0.2 mg, By Mouth, Daily at bedtime, # 60 tablet, 1 Refills, Maintenance, 04/11/22 22:54:00 EDT, Tablet, [facility], Partial fill upon patient request if the prescription is for a schedule II opioid drug., 165, cm, 0... Start Date: 04/11/22 Status: Ordered divalproex sodium 500 mg oral tablet, extended release 3 tablet = 1,500 mg, By Mouth, Daily at bedtime, # 90 tablet, 1 Refills, Maintenance, 04/11/22 22:54:00 EDT, ER Tablet, [facility], Partial fill upon patient request if the prescription is for a schedule II opioid drug., 165,... Start Date: 04/11/22 Status: Ordered docusate sodium 100 mg oral tablet = 100 mg, By Mouth, 2 times a day, # 60 tablet, 1 Refills, Maintenance, 04/11/22 22:54:00 EDT, Tablet, [facility], Partial fill upon patient request if the prescription is for a schedule II opioid drug., 165, cm, 04/11/22 12:5... Start Date: 04/11/22 Status: Ordered fluconazole 150 mg oral tablet 1 tablet = 150 mg, By Mouth, Once, take on 05/29/2022, # 1 tablet, 0 Refills, Soft Stop, 05/26/22 19:38:00 EDT, Tablet, [facility], Partial fill upon patient request if the prescription is for a schedule II opioid drug., 165,... Start Date: 05/26/22 Status: Ordered fluPHENAZine 2.5 mg oral tablet 1 tablet = 2.5 mg, By Mouth, 3 times a day, PRN Agitation, # 90 tablet, 1 Refills, Maintenance, 04/11/22 22:55:00 EDT, [facility], Partial fill upon patient request if the prescription is for a schedule II opioid drug., 165, c... Start Date: 04/11/22 Status: Ordered fluPHENAZine decanoate 25 mg/mL injectable solution = 25 mg, Intramuscular, Every 21 days, next due: 04/19/2022, # 1 kit, 1 Refills, Maintenance, 04/11/22 22:55:00 EDT, [facility], Partial fill upon patient request if the prescription is for a schedule II opioid drug., 165, cm,... Start Date: 04/11/22 Status: Ordered glycopyrrolate 1 mg oral tablet 1 mg, 1, tablet, By Mouth, Daily at bedtime, # 30 tablet, Refills 1, Tot. Refills 1, Maintenance, 04/11/22 22:52:00 EDT, Route to Pharmacy Electronically, [facility], Partialfill upon patient request if the prescription is fo... Start Date: 04/11/22 Status: Ordered hydrocortisone 1% topical lotion See Instructions, Topically Daily, # 60 mL, 0 Refills, Maintenance, 04/11/22 22:53:00 EDT, Lotion, [facility], Partial fill upon patient request if the prescription is for a schedule II opioid drug., Topically Daily, 165, cm,... Start Date: 04/11/22 Status: Ordered insulin glargine 100 u/ml subcutaneous solution = 35 units, Subcutaneous Injection, Daily at bedtime, # 10 mL, 1 Refills, Maintenance, 04/11/22 22:55:00 EDT, Injection, [facility]- , Partial fill upon patient request [...] units 370... Start Date: 04/11/22 Status: Ordered lidocaine 5% topical film 1 patch, Topically, Daily, PRN Pain , Mild, remove after 12 hours, # 3 patch, 0 Refills, Maintenance, 05/17/22 13:07:00 EDT, Film, [facility]-, Partial fill upon patient request if the prescription is for a schedule II opioid d... Start Date: 05/17/22 Stop Date: 05/20/22 Status: Ordered LORazepam 0.5 mg oral tablet [...] 1 Refills, Maintenance, 04/11/22 22:55:00 EDT, Tablet, [facility]-, Partial fill upon patient request if the prescription is for a schedule II opioid drug., 165, cm, 07... Start Date: 04/11/22 Status: Ordered Metamucil 3.4 gm/5.2 gm oral powder for reconstitution = 1.7 Gm, By Mouth, Daily, PRN as needed for constipation, # 570 Gm, 1 Refills, Maintenance, 04/11/22 22:56:00 EDT, REC Powder, [facility]- , Partial fill upon patient request if the prescription is for a schedule II opioid drug... Start Date: 04/11/22 Status: Ordered metFORMIN 500 mg oral tablet 1 each = 500 mg, By Mouth, 2 times a day, # 60 tablet, 1 Refills, Maintenance, 11/30/21 21:00:00 EDT, Tablet, [facility]-, Partial fill upon patient request if [...] Refills, Maintenance, 04/11/22 22:52:00 EDT, ER Tablet, [facility]-, Partial fill upon patient request if the prescription is for a schedule II opioid drug., 165, cm, 04/11/22 12... Start Date: 04/11/22 Status: Ordered Problem List Condition Effective Dates Status Health Status Inform ant Amenorrhea(Confirmed) Active Bipolar disorder(Confirmed) Active Body mass index 30+ - obesity(Confirmed) Active Chronic renal impairment(Confirmed) Active Constipation(Confirmed) Active HTN - Hypertension(Confirmed) Active Hyperlipidemia(Confirmed) Active Nocturia(Confirmed) Active Obese class II(Confirmed) Active Primary hypertension(Confirmed) Active Schizoaffective disorder(Confirmed) Active Type II diabetes mellitus(Confirmed) Active Urge incontinence(Confirmed) Active Social History Social History Type Response Smoking Status Former smoker, quit more than 30 days ago entered on: 09/27/20 Sex Care Team Personnel Name: Sidney Jackson MD Address: [address] [place] [address], [address] [facility] [address]
--- OUTSIDE RECORDS SUMMARY | 2024-02-24 19:46 | XMS_ITS | Continuity of Care Document ---
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 Name Role Phone Sidney Jackson MD Primary Care Physician Encounter [facility] [place] Date(s): 02/07/23 - 03/30/23 [facility] [address] [place] [address]- Attending Physician: Moraima Ling MD Admitting Physician: Moraima Ling MD Referring Physician: Sidney Jackson MD Allergies, Adverse Reactions, Alerts Substance Reaction Severity Status ibuprofen Active haloperidol Active lithium Active penicillin Active Benadryl Active Bactrim DS 1 acute renal failure Active Apples Active Grapes Active 1had episodes of acute renal failure during admission to [facility] -- resolved both times off Bactrim and [...] 02/07/23 12:50:00 EDT, Route to Pharmacy Electronically, [facility], Partialfill upon patient request if the prescription is fo... Start Date: 02/07/23 Status: Ordered clozapine 100 mg oral tablet 3 tablet = 300 mg, By Mouth, Daily at bedtime, # 90 tablet, 1 Refills, Maintenance, 02/07/23 12:50:00 EDT, [facility], Partial fill upon patient request if the prescription is for a schedule II opioid drug., 165, cm, 01/31/23... Start Date: 02/07/23 Status: Ordered desmopressin 0.2 mg oral tablet 1 tablet = 0.2 mg, By Mouth, Daily at bedtime, # 30 tablet, 0 Refills, Maintenance, 02/07/23 12:52:00 EDT, Tablet, [facility], Partial fill upon patient request if the prescription is for a schedule II opioid drug., 165, cm, 0... Start Date: 02/07/23 Status: Ordered divalproex sodium 500 mg oral tablet, extended release 3 tablet = 1,500 mg, By Mouth, Daily at bedtime, # 90 tablet, 1 Refills, Maintenance, 02/07/23 12:51:00 EDT, ER Tablet, [facility], Partial fill upon patient request if the prescription is for a schedule II opioid drug., 165,... Start Date: 02/07/23 Status: Ordered docusate sodium 100 mg oral tablet = 100 mg, By Mouth, 2 times a day, # 60 tablet, 0 Refills, Maintenance, 02/07/23 12:51:00 EDT, Tablet, [facility], Partial fill upon patient request if the prescription is for a schedule II opioid drug., 165, cm, 01/31/23 0:39... Start Date: 02/07/23 Status: Ordered fluPHENAZine decanoate 25 mg/mL injectable solution = 25 mg, Intramuscular, Every 21 days, Last given 01/26/23 due 02/16/23, # 1 kit, 1 Refills, Maintenance, 02/07/23 12:51:00 EDT, [facility]- , Partial fill upon patient request [...] 2 Refills, Maintenance, 02/07/23 12:58:00 EDT, Solution, [facility]- , Partial fill upon patient request if the prescription is for a schedule II opioid drug., 165,... Start Date: 02/07/23 Status: Ordered metFORMIN 500 mg oral tablet 1 each = 500 mg, By Mouth, 2 times a day, # 60 tablet, 1 Refills, Maintenance, 02/07/23 12:51:00 EDT, Tablet, [facility]-, Partial fill upon patient request if the prescription is for a schedule II opioid drug., 165, cm, ... Start Date: 02/07/23 Status: Ordered oxybutynin 5 mg/24 hours oral tablet, extended release 1 tablet = 5 mg, By Mouth, Daily, # 30 tablet, 1 Refills, Maintenance, 02/07/23 12:51:00 EDT, XL Tablet, [facility]-, Partial fill upon patient request if the prescription is for a schedule II opioid drug., 165, cm, 01/31/23 0:... Start Date: 02/07/23 Status: Ordered Problem List Condition Confirmation Course [...] Team Personnel Name: Lawrence Cano RN Position: [facility] RN Member Role: Primary Care Nurse Name: Nayana Bradshaw RN Position: [facility] RN Member Role: Primary Care Nurse Name: Ana María Espino RN Position: [facility] RN Member Role: Primary Care Nurse Name: Raji Somers RN Position: [facility] RN Member Role: Primary Care Nurse Name: Ulisses Barboza Position: S RN Member Role: Primary Care Nurse Name: Dahiana Thrasher RN Position: [facility] ED RN W/OE and Tasks Member Role: Primary Care Nurse Name: Rick Chi RN Position: S RN Member Role: Primary Care Nurse Name: Maggi Fagan RN Position: [facility] ED RN W/OE and Tasks Member Role: Primary Care Nurse Name: Lawson Rivers RN Position: [facility] RN Supv Member Role: Primary Care Nurse Name: Mark Mccullough RN Position: S RN Member Role: Primary Care Nurse Name: Sidney Jackson MD Position: [facility] Physician - Primary Care Member Role: PCP Address: Address: [address] [place] [address], [address] [place], [place] [address] Name: Nayana Reyes RN Position: [facility] RN Member Role: Primary Care Nurse Name: Anna Cespedes RN Position: [facility] RN Member Role: Primary Care Nurse Name: Gabino Cespedes RN Position: [facility] RN Member Role: Primary Care Nurse Care Team Related Persons Name: BUZZ CASTELLANOS Address: [address] [place] [address] Name: MARK CLAY Address: home [address] [place] [address] [place] [place] [id number] Name: DORIS KNUTSON Address: home [address] [place] [address]
--- OUTSIDE RECORDS SUMMARY | 2024-02-24 19:46 | XMS_ITS | Continuity of Care Document ---
Author Organization [facility] ter Address [address] [place] [id number]- Care Team Providers Care Historic Preservationist Name Role Phone Not on Staff, PCP Primary Care Physician Unavail able [facility]counter [facility] Date[facility]s): 01/21/24 - 01/21/[address] [address]- Discharge Disposition: A-D/C Home Attending Physician: Ashlee Haley MD Admitting Physician: Ashlee Haley MD Referring Physician: Not on Staff, Referring MD Allergies, Adverse Reactions, Alerts Substance Reaction Severity Status codeine Active ibuprofen Active haloperidol Active lithium Active penicillin Active Benadryl Active Bactrim DS 1 acute renal failure Active Grapes Active Apples Active 1had episodes of acute renal failure during admission to [facility] -- resolved both times off Bactrim and [...] tablet, 0 Refills, Maintenance, 12/31/23 8:14:00EDT, Tablet, [facility], Partial fill upon patient request if the prescription is for a schedule II opioid drug., 165, cm, 12/30/23 20:24:00... Start Date: 12/31/23 Stop Date: 01/30/24 Status: Ordered benztropine 0.5 mg oral tablet 0.5 mg, 1, tablet, By Mouth, 2 times a day, # 60 tablet, Refills 0, Tot. Refills 0, Maintenance, 12/31/23 8:15:00 EDT, Route to Pharmacy Electronically, [facility], Partial fill upon patient request if the prescription is for a schedule II o... Start Date: 12/31/23 Stop Date: 01/30/24 Status: Ordered cetirizine 5 mg oral tablet 1 tablet = 5 mg, By Mouth, Daily at bedtime, PRN Other, allergy symptoms, # 30 tablet, 0 Refills, Maintenance, 12/31/23 8:15:00 EDT, Tablet, [facility], Partial fill upon patient request ifthe prescription is for a schedule II opioid drug.,... Start Date: 12/31/23 Stop Date: 01/30/24 Status: Ordered cholecalciferol 1000 intl units oral tablet 1 tablet = 25 mcg, By Mouth, Daily, # 30 tablet, 0 Refills, Maintenance, 12/31/23 8:15:00 EDT, Tablet, [facility], Partial fill upon patient request if the prescription is for a schedule IIopioid drug., 165, cm, 12/30/23 20:24:00 EDT, Heigh... Start Date: 12/31/23 Stop Date: 01/30/24 Status: Ordered clozapine 100 mg oral tablet See Instructions, 250 (2.5 tablets) mg By Mouth Daily at bedtime 30 days, # 75 tablet, 0 Refills, Maintenance, 12/31/23 8:16:00 EDT, Tablet, [facility], Partial fill upon patient request ifthe prescription is for a schedule II opioid drug.,... Start Date: 12/31/23 Status: Ordered divalproex sodium 500 mg oral enteric coated tablet 3 tablet = 1,500 mg, By Mouth, Daily at bedtime, # 90 tablet, 0 Refills, Maintenance, 12/31/23 8:17:00 EDT, Tablet, [facility], Partial fill upon patient request if the prescription is for a schedule II opioid drug., 165, cm, 12/30/23 20:24:... Start Date: 12/31/23 Stop Date: 01/30/24 Status: Ordered docusate sodium 100 mg oral capsule 100 mg, 1, capsule, By Mouth, 2 times a day, PRN, # 60 capsule, Refills 0, Tot. Refills 0, Maintenance, Constipation, 12/31/23 8:18:00 EDT, Route to Pharmacy Electronically, [facility], Partial fill upon patient request if the prescription i... Start Date: 12/31/23 Stop Date: 01/30/24 Status: Ordered FLUoxetine 20 mg oral capsule 20 mg, 1, capsule, By Mouth, Daily, # 30 capsule, Refills 0, Tot. Refills 0, Maintenance, 12/31/23 8:18:00 EDT, Route to Pharmacy Electronically, [facility], Partial fill upon patient request if the prescription is for a schedule II opioid d... Start Date: 12/31/23 Stop Date: 01/30/24 Status: Ordered hydrOXYzine pamoate 25 mg oral capsule 1 capsule = 25 mg, By Mouth, 3 times a day, PRN Anxiety, for 30 days, # 90 capsule, 0 Refills, Acute 01/30/24 9:45:00 EDT, 12/31/23 9:45:00 EDT, Capsule, [facility], Partial fill upon patient request if [...] 0 Refills, Maintenance, 12/31/23 8:19:00 EDT, Tablet, [facility], Partial fill upon patient request if [...] 12/31/23 8:20:00 EDT, Route to Pharmacy Electronically, [facility], Partial fill upon patient request if [...] Exam Date Time Procedure Performing Provider Status 01/21/24 11:[address] Lumbar Spine W/O Contrast Estela Marie i; Auth (Verified) Notes: (CT Lumbar Spine W/O Contrast) Reason For Exam: Trauma RESULT: CT Lumbar Spine W/O Contrast CT Thoracic Spine W/O Contrast, CT Lumbar Spine W/O Contrast INDICATION: Hx of Present Illness: Pt c o my whole body hurts after pt was doing somersaults on her bed when she fell off the bed onto the floor. Pt denies LOC thinners.; Reason: Trauma; Clinical Question(s): Other:; Fracture Subluxation, Other: TECHNIQUE: Noncontrast CT of the thoracic and lumbar spine was performed. Bone and soft tissue algorithms were reconstructed along with coronal and sagittal computations. Weight-based protocol using automatic tube modulation was used to optimize exposure parameters. RADIATION DOSE PARAMETERS: CTDIvol Body: 26.11 mGy, DLP Body: 1382 mGy*cm. COMPARISON: 01/07/2024 FINDINGS: No fractures are demonstrated. There is no malalignment. Flowing anterior osteophytes throughout the thoracic and upper lumbar spine are noted, consistent with dish. Disc space narrowing at the L5-D0qwmek is present. There are no traumatic disc herniations or epidural hematomas. The visualized lungs are unremarkable. The visualized abdominal contents are unremarkable. IMPRESSION: There is no acute osseous abnormality. 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 WSN: [id number] Ordering Physician: Ashlee Haley Dictated By: Yamile Farnsworth MD Dictated Date/Time: 01/21/24 11:55 a Reviewed By: Yamile Farnsworth MD Signed By: Yamile Farnsworth MD Signed Date/Time: 01/21/24 11:55 am Transcribed By: RANI Transcribed Date/Time: 01/21/24 11:54 am * Exam Date Time Procedure Performing Provider Status 01/21/24 11:[address] Thoracic Spine W/O Contrast Estela Soto; Auth (Verified) Notes: (CT Thoracic Spine W/O Contrast) Reason For Exam: Trauma RESULT: CT Thoracic Spine W/O Contrast CT Thoracic Spine W/O Contrast, CT Lumbar Spine W/O Contrast INDICATION: Hx of Present Illness: Pt c o my whole body hurts after pt was doing somersaults on her bed when she fell off the bed onto the floor. Pt denies LOC thinners.; Reason: Trauma; Clinical Question(s): Other:; Fracture Subluxation, Other: TECHNIQUE: Noncontrast CT of the thoracic and lumbar spine was performed. Bone and soft tissue algorithms were reconstructed along with coronal and sagittal computations. Weight-based protocol using automatic tube modulation was used to optimize exposure parameters. RADIATION DOSE PARAMETERS: CTDIvol Body: 26.11 mGy, DLP Body: 1382 mGy*cm. COMPARISON: 01/07/2024 FINDINGS: No fractures are demonstrated. There is no malalignment. Flowing anterior osteophytes throughout the thoracic and upper lumbar spine are noted, consistent with dish. Disc space narrowing at the L5-E6kisdv is present. There are no traumatic disc herniations or epidural hematomas. The visualized lungs are unremarkable. The visualized abdominal contents are unremarkable. IMPRESSION: There is no acute osseous abnormality. 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 WSN: [id number] Ordering Physician: Ashlee Haley Dictated By: Yamile Farnsworth MD Dictated Date/Time: 01/21/24 11:55 a Reviewed By: Yamile Farnsworth MD Signed By: Yamile Farnsworth MD Signed Date/Time: 01/21/24 11:55 am Transcribed By: RANI Transcribed Date/Time: 01/21/24 11:54 am * Exam Date Time Procedure Performing Provider Status 01/21/24 11:[address] Cervical Spine W/O Contrast Estela Soto; Auth (Verified) Notes: (CT Cervical Spine W/O Contrast) Reason For Exam: Trauma RESULT: CT Cervical Spine W/O Contrast Examination: Noncontrast head CT and noncontrast CT of the cervical spine performed on 01/21/2024. History: Fall from a bed. Technique and findings: Noncontrast head CT: Contiguous 5 mm axial images were obtained from the skull base to the vertex without intravenous contrast. A dose modulated weight-based protocol was used. Comparison is made to a prior study dated 01/07/2024. The visualized sinuses are free from disease. The ventricular system and subarachnoid spaces are within normal limits. A lacunar infarction or prominent VR space within the left subinsular cortex is noted. There is no intracranial hemorrhage, mass effect, or midline shift. No intra- or extra-axial fluid collections are identified. The osseous structures are unremarkable. Noncontrast CT of the cervical spine: Contiguous axial images were obtained from the skull base through the thoracic inlet without intravenous contrast. Sagittal and coronal reformatted images are provided. A dose modulated weight-based protocol was used. No fractures are demonstrated. There is marked flowing anterior osteophyte formation throughout theentirety of the cervical spine, likely secondary to DISH. There is no malalignment. There is no traumatic disc herniation or epidural hematoma. Several less than 0.5 cm hypodensities are noted within both thyroid lobes. The lung apices are unremarkable. IMPRESSION: There is no acute intracranial abnormality. Flowing anterior osteophytes within the cervical spine. There is no acute osseous abnormality. WSN: [id number] Ordering Physician: Ashlee Haley Dictated By: Yamile Farnsworth MD Dictated Date/Time: 01/21/24 11:51 a Reviewed By: Yamile Farnsworth MD Signed By: Yamile Farnsworth MD Signed Date/Time: 01/21/24 11:51 am Transcribed By: RANI Transcribed Date/Time: 01/21/24 11:49 am * Exam Date Time Procedure Performing Provider Status 01/21/24 11:[address] Head/Brain W/O Contrast Estela Dominguez; Kieran (Verified) Notes: (CT Head/Brain W/O Contrast) Reason For Exam: Trauma RESULT: CT Head/Brain W/O Contrast Examination: Noncontrast head CT and noncontrast CT of the cervical spine performed on 01/21/2024. History: Fall from a bed. Technique and findings: Noncontrast head CT: Contiguous 5 mm axial images were obtained from the skull base to the vertex without intravenous contrast. A dose modulated weight-based protocol was used. Comparison is made to a prior study dated 01/07/2024. The visualized sinuses are free from disease. The ventricular system and subarachnoid spaces are within normal limits. A lacunar infarction or prominent VR space within the left subinsular cortex is noted. There is no intracranial hemorrhage, mass effect, or midline shift. No intra- or extra-axial fluid collections are identified. The osseous structures are unremarkable. Noncontrast CT of the cervical spine: Contiguous axial images were obtained from the skull base through the thoracic inlet without intravenous contrast. Sagittal and coronal reformatted images are provided. A dose modulated weight-based protocol was used. No fractures are demonstrated. There is marked flowing anterior osteophyte formation throughout theentirety of the cervical spine, likely secondary to DISH. There is no malalignment. There is no traumatic disc herniation or epidural hematoma. Several less than 0.5 cm hypodensities are noted within both thyroid lobes. The lung apices are unremarkable. IMPRESSION: There is no acute intracranial abnormality. Flowing anterior osteophytes within the cervical spine. There is no acute osseous abnormality. WSN: [id number] Ordering Physician: Ashlee Haley Dictated By: Yamile Farnsworth MD Dictated Date/Time: 01/21/24 11:51 a Reviewed By: Yamile Farnsworth MD Signed By: Yamile Farnsworth MD Signed Date/Time: 01/21/24 11:51 am Transcribed By: RANI Transcribed Date/Time: 01/21/24 11:49 am Vital Signs Most recent to oldest [Reference Range]: 1 2 3 Oxygen Saturation [94-100 %] 100 % (01/21/24 4:50 PM) 100 % (01/21/24 3:07 PM) 99 % (01/21/24 1:32 PM) Pulse Rate [55-90 bpm] 77 bpm (01/21/24 4:50 PM) 80 bpm (01/21/24 3:07 PM) 82 bpm (01/21/24 1:32 PM) Blood Pressure [90-138/55-84 mm Hg] 113/73mm Hg (01/21/24 4:50 PM) 113/74mm Hg (01/21/24 3:07 PM) 119/78mm Hg (01/21/24 1:32 PM) Respiratory Rate [16-30 br/min] 16 br/min (01/21/24 4:50 PM) 18 br/min (01/21/24 3:07 PM) 20 br/min (01/21/24 1:32 PM) Temperature [96.8-100.4 DegF] 97.6 DegF (01/21/24 9:19 AM) Mode of Delivery (Oxygen) Room air (01/21/24 4:50 PM) Room air (01/21/24 3:07 PM) Room air (01/21/24 1:32 PM) Temperature Route Oral (01/21/24 9:19 AM) Social History Social History Type Response Smoking Status Former smoker, quit more than 30 days ago entered on: 09/27/20 Sex EKG study * Event Display: ECG 12-Lead Authored Date: Please click on pdf link to open report * Event Display: ECG 12-Lead Authored Date: Ventricular Rate: 83 BPM Atrial Rate: 83 BPM P-R Interval: 152 ms QRS Duration: 84 ms Q-T Interval: 386 ms QTC Calculation(Bazett): 453 ms P Freeman: 43 degrees R Freeman: -25 degrees T Freeman: 41 degrees Normal sinus rhythm Minimal voltage criteria for LVH, may be normal variant ( R in aVL ) Cannot rule out Anterior infarct (cited on or before 07-JAN-2024) Abnormal ECG When compared with ECG of 07-JAN-2024 04:23, Nonspecific T wave abnormality no longer evident in Inferior leads Confirmed by SHREYAS COVARRUBIAS ([id number]) on 01/21/2024 10:25:35 AM [place]: SHREYAS COVARRUBIAS Patient Care team information Care Team Personnel Name: Alexandra Whipple RN Position: S RN Member Role: Primary Care Nurse Name: Lawrence Cano RN Position: [facility] RN Member Role: Primary Care Nurse Name: Nayana Bradshaw RN Position: [facility] RN Member Role: Primary Care Nurse Name: Ana María Espino RN Position: S RN Member Role: Primary Care Nurse Name: Raji Somers RN Position: [facility] RN Member Role: Primary Care Nurse Name: Ulisses Barboza Position: S RN Member Role: Primary Care Nurse Name: Dahiana Thrasher RN Position: [facility] ED RN W/OE and Tasks Member Role: Primary Care Nurse Name: Shira Ewing RN Position: [facility] RN Member Role: Primary Care Nurse Name: Rick Chi RN Position: S RN Member Role: Primary Care Nurse Name: Maggi Fagan RN Position: [facility] ED RN W/OE and Tasks Member Role: Primary Care Nurse Name: Marlo Davies RN Position: [facility] RN Member Role: Primary Care Nurse Name: Moni Rodriguez Position: [facility] RN Member Role: Primary Care Nurse Name: Not on Staff, PCP Position: [facility] Physician (General Medicine) Member Role: PCP Name: Lawson Rivers RN Position: [facility] RN Supv Member Role: Primary Care Nurse Name: Mark Mccullough RN Position: [facility] RN Member Role: Primary Care Nurse Name: Ana María Ugarte RN Position: [facility] RN Member Role: Primary Care Nurse Name: Nayana Reyes RN Position: [facility] RN Member Role: Primary Care Nurse Name: Capo Sales RN Position: [facility] RN Member Role: Primary Care Nurse Name: Yenni Medellin RN Position: [facility] RN Member Role: Primary Care Nurse Name: Anna Cespedes RN Position: [facility] RN Member Role: Primary Care Nurse Name: Gabino Cespedes RN Position: [facility] RN Member Role: Primary Care Nurse Care Team Related Persons Name: OBED MARK Address: home [address] [place] [address] [facility] Name: DORIS KNUTSON Address: home [address] [place] [address]
--- OUTSIDE RECORDS SUMMARY | 2024-02-24 19:46 | XMS_ITS | Continuity of Care Document ---
Author Organization [facility] Diabetes Address [address] [place] [address]- Care Team Providers Care Scale Manager Name Role Phone Manuel PADILLA, Sidney Trejo Primary Care Physician [phone] [facility]counter [facility]): [facility]22 - 06/09/22 [facility] Diabetes [address] [place] [address]- Attending Physician: Luanne Candelario Admitting Physician: Luanne Candelario Referring Physician: Luanne Candelario Referring Physician: Fawn Monique Allergies, Adverse Reactions, Alerts Substance Reaction Severity Status ibuprofen Active haloperidol Active lithium Active penicillin Active Benadryl Active Bactrim DS 1 acute renal failure Active Grapes Active Apples Active 1had episodes of acute renal failure during admission to [facility] -- resolved both times [...] 1 Refills, Maintenance, 04/11/22 22:53:00 EDT, Tablet, [facility], Partial fill upon patient request if the prescription is for a schedule II opioid drug., 165kahlil, 04/11/22 12:5... Start Date: 04/11/22 Status: Ordered benztropine 0.5 mg oral tablet 0.5 mg, 1, tablet, By Mouth, 2 times a day, # 60 tablet, Refills 1, Tot. Refills 1, Maintenance, 04/11/22 22:54:00 EDT, Route to Pharmacy Electronically, [facility], Partial fill upon patient request if the prescription is for... Start Date: 04/11/22 Status: Ordered clozapine 100 mg oral tablet 3 tablet = 300 mg, By Mouth, Daily at bedtime, # 90 tablet, 1 Refills, Maintenance, 04/11/22 22:54:00 EDT, [facility], Partial fill upon patient request if the prescription is for a schedule II opioid drug., 165kahlil, 04/11/22... Start Date: 04/11/22 Status: Ordered DDAVP 0.1 mg oral tablet 2 tablet = 0.2 mg, By Mouth, Daily at bedtime, # 60 tablet, 1 Refills, Maintenance, 04/11/22 22:54:00 EDT, Tablet, [facility], Partial fill upon patient request if the prescription is for a schedule II opioid drug., 165, cm, 0... Start Date: 04/11/22 Status: Ordered divalproex sodium 500 mg oral tablet, extended release 3 tablet = 1,500 mg, By Mouth, Daily at bedtime, # 90 tablet, 1 Refills, Maintenance, 04/11/22 22:54:00 EDT, ER Tablet, [facility], Partial fill upon patient request if the prescription is for a schedule II opioid drug., 165,... Start Date: 04/11/22 Status: Ordered docusate sodium 100 mg oral tablet = 100 mg, By Mouth, 2 times a day, # 60 tablet, 1 Refills, Maintenance, 04/11/22 22:54:00 EDT, Tablet, [facility], Partial fill upon patient request if the prescription is for a schedule II opioid drug., 165, cm, 04/11/22 12:5... Start Date: 04/11/22 Status: Ordered fluconazole 150 mg oral tablet 1 tablet = 150 mg, By Mouth, Once, take on 05/29/2022, # 1 tablet, 0 Refills, Soft Stop, 05/26/22 19:38:00 EDT, Tablet, [facility], Partial fill upon patient request if the prescription is for a schedule II opioid drug., 165,... Start Date: 05/26/22 Status: Ordered fluPHENAZine 2.5 mg oral tablet 1 tablet = 2.5 mg, By Mouth, 3 times a day, PRN Agitation, # 90 tablet, 1 Refills, Maintenance, 04/11/22 22:55:00 EDT, [facility], Partial fill upon patient request if the prescription is for a schedule II opioid drug., 165, c... Start Date: 04/11/22 Status: Ordered fluPHENAZine decanoate 25 mg/mL injectable solution = 25 mg, Intramuscular, Every 21 days, next due: 04/19/2022, # 1 kit, 1 Refills, Maintenance, 04/11/22 22:55:00 EDT, [facility], Partial fill upon patient request if the prescription is for a schedule II opioid drug., 165, cm,... Start Date: 04/11/22 Status: Ordered glycopyrrolate 1 mg oral tablet 1 mg, 1, tablet, By Mouth, Daily at bedtime, # 30 tablet, Refills 1, Tot. Refills 1, Maintenance, 04/11/22 22:52:00 EDT, Route to Pharmacy Electronically, [facility], Partialfill upon patient request if the prescription is fo... Start Date: 04/11/22 Status: Ordered hydrocortisone 1% topical lotion See Instructions, Topically Daily, # 60 mL, 0 Refills, Maintenance, 04/11/22 22:53:00 EDT, Lotion, [facility], Partial fill upon patient request if the prescription is for a schedule II opioid drug., Topically Daily, 165, cm,... Start Date: 04/11/22 Status: Ordered insulin glargine 100 u/ml subcutaneous solution = 35 units, Subcutaneous Injection, Daily at bedtime, # 10 mL, 1 Refills, Maintenance, 04/11/22 22:55:00 EDT, Injection, [facility]- , Partial fill upon patient request if [...] 0 Refills, Maintenance, 05/17/22 13:07:00 EDT, Film, [facility]-, Partial fill upon patient request if [...] 1 Refills, Maintenance, 04/11/22 22:55:00 EDT, Tablet, [facility], Partial fill upon patient request if the prescription is for a schedule II opioid drug., 165, cm, 07... Start Date: 04/11/22 Status: Ordered Metamucil 3.4 gm/5.2 gm oral powder for reconstitution = 1.7 Gm, By Mouth, Daily, PRN as needed for constipation, # 570 Gm, 1 Refills, Maintenance, 04/11/22 22:56:00 EDT, REC Powder, [facility]- , Partial fill upon patient request if the prescription is for a schedule II opioid drug... Start Date: 04/11/22 Status: Ordered metFORMIN 500 mg oral tablet 1 each = 500 mg, By Mouth, 2 times a day, # 60 tablet, 1 Refills, Maintenance, 11/30/21 21:00:00 EDT, Tablet, [facility]-, Partial fill upon patient request if [...] Refills, Maintenance, 04/11/22 22:52:00 EDT, ER Tablet, [facility], Partial fill upon patient request if [...] Team Personnel Name: Sidney Jackson MD Address: [address] [place] [address], [address] [facility] [place], [place] [address]
--- OUTSIDE RECORDS SUMMARY | 2024-02-24 19:47 | XMS_ITS | Continuity of Care Document ---
Author Organization [facility] ter Address [address] [place] [id number]- Care Team Providers Care Service Associate Name Role Phone Ella Benjamin NP Primary Care Physician Encounter [facility] [place] Date(s): 01/07/24 - 01/07/[address] [address]- Encounter Diagnosis Fall(Final) - 01/07/24 Discharge Disposition: A-D/C Home Attending Physician: Phylicia Garcia MD Admitting Physician: Phylicia Garcia MD Referring Physician: Not on Staff, Referring MD Allergies, Adverse Reactions, Alerts Substance Reaction Severity Status ibuprofen Active haloperidol Active lithium Active penicillin Active Benadryl Active Bactrim DS 1 acute renal failure Active Grapes Active Apples Active 1had episodes of acute renal failure during admission to [facility] -- resolved both times off Bactrim [...] tablet, 0 Refills, Maintenance, 12/31/23 8:14:00EDT, Tablet, [facility], Partial fill upon patient request if the prescription is for a schedule II opioid drug., 165, cm, 12/30/23 20:24:00... Start Date: 12/31/23 Stop Date: 01/30/24 Status: Ordered benztropine 0.5 mg oral tablet 0.5 mg, 1, tablet, By Mouth, 2 times a day, # 60 tablet, Refills 0, Tot. Refills 0, Maintenance, 12/31/23 8:15:00 EDT, Route to Pharmacy Electronically, [facility], Partial fill upon patient request if the prescription is for a schedule II o... Start Date: 12/31/23 Stop Date: 01/30/24 Status: Ordered cetirizine 5 mg oral tablet 1 tablet = 5 mg, By Mouth, Daily at bedtime, PRN Other, allergy symptoms, # 30 tablet, 0 Refills, Maintenance, 12/31/23 8:15:00 EDT, Tablet, [facility], Partial fill upon patient request ifthe prescription is for a schedule II opioid drug.,... Start Date: 12/31/23 Stop Date: 01/30/24 Status: Ordered cholecalciferol 1000 intl units oral tablet 1 tablet = 25 mcg, By Mouth, Daily, # 30 tablet, 0 Refills, Maintenance, 12/31/23 8:15:00 EDT, Tablet, [facility], Partial fill upon patient request if the prescription is for a schedule IIopioid drug., 165, cm, 12/30/23 20:24:00 EDT, Heigh... Start Date: 12/31/23 Stop Date: 01/30/24 Status: Ordered clozapine 100 mg oral tablet See Instructions, 250 (2.5 tablets) mg By Mouth Daily at bedtime 30 days, # 75 tablet, 0 Refills, Maintenance, 12/31/23 8:16:00 EDT, Tablet, [facility], Partial fill upon patient request ifthe prescription is for a schedule II opioid drug.,... Start Date: 12/31/23 Status: Ordered divalproex sodium 500 mg oral enteric coated tablet 3 tablet = 1,500 mg, By Mouth, Daily at bedtime, # 90 tablet, 0 Refills, Maintenance, 12/31/23 8:17:00 EDT, Tablet, [facility], Partial fill upon patient request if the prescription is for a schedule II opioid drug., 165, cm, 12/30/23 20:24:... Start Date: 12/31/23 Stop Date: 01/30/24 Status: Ordered docusate sodium 100 mg oral capsule 100 mg, 1, capsule, By Mouth, 2 times a day, PRN, # 60 capsule, Refills 0, Tot. Refills 0, Maintenance, Constipation, 12/31/23 8:18:00 EDT, Route to Pharmacy Electronically, [facility], Partial fill upon patient request if the prescription i... Start Date: 12/31/23 Stop Date: 01/30/24 Status: Ordered FLUoxetine 20 mg oral capsule 20 mg, 1, capsule, By Mouth, Daily, # 30 capsule, Refills 0, Tot. Refills 0, Maintenance, 12/31/23 8:18:00 EDT, Route to Pharmacy Electronically, [facility], Partial fill upon patient request if the prescription is for a schedule II opioid d... Start Date: 12/31/23 Stop Date: 01/30/24 Status: Ordered hydrOXYzine pamoate 25 mg oral capsule 1 capsule = 25 mg, By Mouth, 3 times a day, PRN Anxiety, for 30 days, # 90 capsule, 0 Refills, Acute 01/30/24 9:45:00 EDT, 12/31/23 9:45:00 EDT, Capsule, [facility], Partial fill upon patient request if [...] 0 Refills, Maintenance, 12/31/23 8:19:00 EDT, Tablet, [facility], Partial fill upon patient request if [...] 12/31/23 8:20:00 EDT, Route to Pharmacy Electronically, [facility], Partial fill upon patient request if [...] Exam Date Time Procedure Performing Provider Status 01/07/24 5:[address] Cervical Spine W/O Contrast Shakir Ortega; Auth (Verified) Notes: (CT Cervical Spine W/O Contrast) Reason For Exam: Neck trauma, dangerous injury mechanism;Other: RESULT: CT Cervical Spine W/O Contrast CT Cervical Spine W/O Contrast See dictation under accession for CT head of the same date. WSN: [id number] Ordering Physician: Taylor Shankar Dictated By: Magali Perez MD Dictated Date/Time: 01/07/24 5:12 pm Reviewed By: Magali Perez MD Signed By: Magali Perez MD Signed Date/Time: 01/07/24 5:12 pm Transcribed By: RANI Transcribed Date/Time: 01/07/24 5:12 pm * Exam Date Time Procedure Performing Provider Status 01/07/24 5:40 AM XR Femur 2 Views Right Thomas Yepez ph; Auth (Verified) Notes: (XR Femur 2 Views Right) Reason For Exam: with Pain;Trauma RESULT: Femur 2 Views Right Pelvis 1 or 2 Views, Femur 2 Views Right Hx of Present Illness: From shelter, endorsing generalized pain, dizziness, States got dizzy fell from bed; Reason: Trauma; With Pain; Clinical Question(s): Fracture COMPARISON: None. FINDINGS: There is no fracture or dislocation. The femoral head is normally aligned with the acetabulum. Osteophyte formation and joint space narrowing within the knee is seen. A large stool burden within the colon is present. IMPRESSION: There is no osseous abnormality. WSN: [id number] Ordering Physician: Taylor Shankar Dictated By: Yamile Farnsworth MD Dictated Date/Time: 01/07/24 7:50 am Reviewed By: Yamile Farnsworth MD Signed By: Yamile Farnsworth MD Signed Date/Time: 01/07/24 7:50 am Transcribed By: RANI Transcribed Date/Time: 01/07/24 7:49 am * Exam Date Time Procedure Performing Provider Status 01/07/24 5:40 AM Pelvis 1 or 2 Views Maisha Yepez (Verified) Notes: (Pelvis 1 or 2 Views) Reason For Exam: With Pain;Trauma RESULT: Pelvis 1 or 2 Views Pelvis 1 or 2 Views, Femur 2 Views Right Hx of Present Illness: From shelter, endorsing generalized pain, dizziness, States got dizzy fell from bed; Reason: Trauma; With Pain; Clinical Question(s): Fracture COMPARISON: None. FINDINGS: There is no fracture or dislocation. The femoral head is normally aligned with the acetabulum. Osteophyte formation and joint space narrowing within the knee is seen. A large stool burden within the colon is present. IMPRESSION: There is no osseous abnormality. WSN: [id number] Ordering Physician: Taylor Shankar Dictated By: Yamile Farnsworth MD Dictated Date/Time: 01/07/24 7:50 am Reviewed By: Yamile Farnsworth MD Signed By: Yamile Farnsworth MD Signed Date/Time: 01/07/24 7:50 am Transcribed By: RANI Transcribed Date/Time: 01/07/24 7:49 am * Exam Date Time Procedure Performing Provider Status 01/07/24 5:40 AM Knee 1 or 2 Views Right Carlos Yepez (Verified) Notes: (Knee 1 or 2 Views Right) Reason For Exam: with Pain;Trauma RESULT: Knee 1 or 2 Views Right Examination: Right knee performed on 01/07/2024. History: Hx of Present Illness: From shelter, endorsing generalized pain, dizziness, States got dizzy fell from bed; Reason: Trauma; with Pain; Clinical Question(s): Fracture Findings: Frontal and lateral views of the right knee are submitted. There is near complete joint space loss within the medial compartment and marked patellofemoral joint space narrowing. Osteophyte formation is noted. There are no fractures. There is no joint effusion. IMPRESSION: Advanced osteoarthritic change. WSN: [id number] Ordering Physician: Taylor Shankar Dictated By: Yamile Farnsworth MD Dictated Date/Time: 01/07/24 7:49 am Reviewed By: Yamile Farnsworth MD Signed By: Yamile Farnsworth MD Signed Date/Time: 01/07/24 7:49 am Transcribed By: RANI Transcribed Date/Time: 01/07/24 7:48 am * Exam Date Time Procedure Performing Provider Status 01/07/24 5:[address] Thoracic Spine W/O Contrast Shakir Ortega (Verified) Notes: (CT Thoracic Spine W/O Contrast) Reason For Exam: Trauma RESULT: CT Thoracic Spine W/O Contrast CT Abd/Pelvis W/ IV Contrast Only, CT Thoracic Spine W/O Contrast HX OF PRESENT ILLNESS: From shelter, endorsing generalized pain, dizziness, States got dizzy fell from bed left abdominal pain.58 TECHNIQUE: Spiral CT through the abdomen and pelvis with IV contrast formatted in 3 planes. 100 cc of Omnipaque 300 was administered intravenously. Examination performed in the thoracic spine with reformatting in 3 planes. This study was performed without oral contrast. Weight-based protocol using automatic tube modulation was used to optimize exposure parameters. CTDIvol Body: 24.80 mGy, DLP Body: 1438 mGy*cm. ( CTDIvol Body: 21.10 mGy, DLP Body: 715 mGy*cm. ( COMPARISON: 12/05/2023. FINDINGS: Kennel Technician View Findings, Lines and Tubes: None. Visualized Chest: Bibasilar atelectasis. No pleural effusion. The heart is normal in size. No pericardial effusion. Diaphragm: Normal. Liver: Normal. Portal, superior mesenteric, splenic veins patent. Gallbladder: No CT evidence of gallbladder pathology. Bile ducts: No biliary ductal dilation. Spleen: Normal. Pancreas: Normal. Adrenal glands: Normal. Kidneys and ureters: No hydronephrosis, stones, or suspicious masses. Simple appearing renal cysts and hypodensities that are too small to characterize are noted, requiring no dedicated follow up. Bladder: Normal. Reproductive organs: No pelvic mass or fluid collection. Stomach, small bowel, and large bowel: The stomach is normal. The small bowel is normal. The large bowel is not dilated and shows no inflammatory change. The right colon, hepatic flexure, proximal transverse colon are normal. The remainder of the colon shows moderately prominent stool down to the rectum. Appendix: Normal. Peritoneum and retroperitoneum: No ascites or pneumoperitoneum. No omental or mesenteric lesions. Lymph nodes: No enlarged lymph nodes. Major arteries: No aneurysm of the abdominal aorta or iliac arteries. Abdominal and pelvic wall: Unremarkable. Bones: No fracture lower ribs. No fracture about the proximal femurs. Lumbar spine shows no fracture. Grade 1 spondylolisthesis L4 on L5. Multilevel degenerative change most pronounced at L5-S1. Thoracic spine: No fracture. Normal alignment. No focal lesion. 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 IMPRESSION: ABDOMEN AND PELVIS: 1. No acute soft tissue abnormality. 2. Moderately prominent stool from distal transverse colon down to rectum. 3. No fracture. THORACIC SPINE: 1. No fracture. 2. Normal alignment. 3. Diffuse idiopathic skeletal hyperostosis. I have personally reviewed the images and I agree with this report. WSN: [id number] Ordering Physician: Taylor Shankar Dictated By: Sugey Zamorano MD Dictated Date/Time: 01/07/24 8:02 am Reviewed By: Reece Ashby MD Signed By: Reece Ashby MD Signed Date/Time: 01/07/24 8:07 am Transcribed By: RANI Transcribed Date/Time: 01/07/24 7:38 am * Exam Date Time Procedure Performing Provider Status 01/07/24 5:[address] Abd/Pelvis W/ IV Contrast Only Shakir Adam (Verified) Notes: (CT Abd/Pelvis W/ IV Contrast Only) Reason For Exam: LLQ abdominal pain;Other: RESULT: CT Abd/Pelvis W/ IV Contrast Only CT Abd/Pelvis W/ IV Contrast Only, CT Thoracic Spine W/O Contrast HX OF PRESENT ILLNESS: From shelter, endorsing generalized pain, dizziness, States got dizzy fell from bed left abdominal pain.58 TECHNIQUE: Spiral CT through the abdomen and pelvis with IV contrast formatted in 3 planes. 100 cc of Omnipaque 300 was administered intravenously. Examination performed in the thoracic spine with reformatting in 3 planes. This study was performed without oral contrast. Weight-based protocol using automatic tube modulation was used to optimize exposure parameters. CTDIvol Body: 24.80 mGy, DLP Body: 1438 mGy*cm. ( CTDIvol Body: 21.10 mGy, DLP Body: 715 mGy*cm. ( COMPARISON: 12/05/2023. FINDINGS: Kennel Technician View Findings, Lines and Tubes: None. Visualized Chest: Bibasilar atelectasis. No pleural effusion. The heart is normal in size. No pericardial effusion. Diaphragm: Normal. Liver: Normal. Portal, superior mesenteric, splenic veins patent. Gallbladder: No CT evidence of gallbladder pathology. Bile ducts: No biliary ductal dilation. Spleen: Normal. Pancreas: Normal. Adrenal glands: Normal. Kidneys and ureters: No hydronephrosis, stones, or suspicious masses. Simple appearing renal cysts and hypodensities that are too small to characterize are noted, requiring no dedicated follow up. Bladder: Normal. Reproductive organs: No pelvic mass or fluid collection. Stomach, small bowel, and large bowel: The stomach is normal. The small bowel is normal. The large bowel is not dilated and shows no inflammatory change. The right colon, hepatic flexure, proximal transverse colon are normal. The remainder of the colon shows moderately prominent stool down to the rectum. Appendix: Normal. Peritoneum and retroperitoneum: No ascites or pneumoperitoneum. No omental or mesenteric lesions. Lymph nodes: No enlarged lymph nodes. Major arteries: No aneurysm of the abdominal aorta or iliac arteries. Abdominal and pelvic wall: Unremarkable. Bones: No fracture lower ribs. No fracture about the proximal femurs. Lumbar spine shows no fracture. Grade 1 spondylolisthesis L4 on L5. Multilevel degenerative change most pronounced at L5-S1. Thoracic spine: No fracture. Normal alignment. No focal lesion. 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 IMPRESSION: ABDOMEN AND PELVIS: 1. No acute soft tissue abnormality. 2. Moderately prominent stool from distal transverse colon down to rectum. 3. No fracture. THORACIC SPINE: 1. No fracture. 2. Normal alignment. 3. Diffuse idiopathic skeletal hyperostosis. I have personally reviewed the images and I agree with this report. WSN: [id number] Ordering Physician: Taylor Shankar Dictated By: Sugey Zamorano MD Dictated Date/Time: 01/07/24 8:02 am Reviewed By: Reece Ashby MD Signed By: Reece Ashby MD Signed Date/Time: 01/07/24 8:07 am Transcribed By: RANI Transcribed Date/Time: 01/07/24 7:38 am * Exam Date Time Procedure Performing Provider Status 01/07/24 5:[address] Head/Brain W/O Contrast Shakir Adam (Verified) Notes: (CT Head/Brain W/O Contrast) Reason For Exam: Trauma RESULT: CT Head/Brain W/O Contrast CT Head/Brain W/O Contrast INDICATION: Dizziness resulting in fall. TECHNIQUE: Noncontrast head CT using axial technique was reconstructed in axial and coronal planes.Noncontrast spiral CT through the cervical spine was formatted in 3 planes. Automatic tube modulation was used for the cervical spine and iterative dose reconstruction was used for both the head and cervical spine to optimize scan parameters and image quality. CTDIvol Body: 18.50 mGy, DLP Body: 425 mGy*cm. CTDIvol Head: 41.10 mGy, DLP Head: 671 mGy*cm. COMPARISON: 12/12/2023 FINDINGS: Kennel Technician View Findings, Lines and Tubes: None. BRAIN AND EXTRA-AXIAL SPACES: No parenchymal hemorrhage, midline shift, or mass effect. Focal hypodensity in the left basal ganglia, which may reflect an old lacunar infarct. Echevarria-white matter differentiation is otherwise well preserved. No acute infarct. Negative insular ribbon and hyperdense vessel signs. Ventricles, sulci, and basilar cisterns are normal. Mild low-density white matter changes. No subarachnoid hemorrhage. No subdural or epidural collection. CALVARIUM, SKULL BASE, AND SOFT TISSUES: No fractures or suspicious bony lesions. The mastoid air cells are clear. Mild thickening of the right maxillary and ethmoidal air cells. Visualized orbits and globes are intact. The extracranial soft tissues are unremarkable. CERVICAL SPINE: Cervical spine: No fracture. No focal lesion. Normal alignment. Bulky ossification anterior longitudinal ligament reflecting diffuse idiopathic skeletal hyperostosis. No disc space narrowing. OTHER BONES: No acute abnormality. CERVICAL SOFT TISSUES AND LUNG APICES: Normal soft tissues. Visualized lung apices are clear. Multinodular thyroid gland, unchanged. IMPRESSION: Head: 1. No intracranial abnormality. 2. No skull fracture. Cervical spine: 1. No fracture. 2. Normal alignment. 3. Diffuse idiopathic skeletal hyperostosis. I have personally reviewed the images and I agree with this report. WSN: [id number] Ordering Physician: Taylor Shankar Dictated By: Sugey Zamorano MD Dictated Date/Time: 01/07/24 7:46 am Reviewed By: Reece Ashby MD Signed By: Reece Ashby MD Signed Date/Time: 01/07/24 7:51 am Transcribed By: RANI Transcribed Date/Time: 01/07/24 7:36 am Vital Signs Most recent to oldest [Reference Range]: 1 2 3 Oxygen Saturation [94-100 %] 100 % (01/07/24 8:02 AM) 100 % (01/07/24 6:09 AM) 99 % (01/07/24 3:48 AM) Pulse Rate [55-90 bpm] 78 bpm (01/07/24 8:02 AM) 82 bpm (01/07/24 6:09 AM) 96 bpm *H* (01/07/24 3:48 AM) Blood Pressure [90-138/55-84 mm Hg] 119/77mm Hg (01/07/24 8:02 AM) 125/82mm Hg (01/07/24 6:09 AM) 127/88mm Hg (01/07/24 3:48 AM) Respiratory Rate [16-30 br/min] 20 br/min (01/07/24 8:02 AM) 16 br/min (01/07/24 6:09 AM) 20 br/min (01/07/24 3:48 AM) Temperature [96.8-100.4 DegF] 98.1 DegF (01/07/24 8:02 AM) 97.7 DegF (01/07/24 3:48 AM) Mode of Delivery (Oxygen) Room air (01/07/24 8:02 AM) Room air (01/07/24 6:09 AM) Room air (01/07/24 3:48 AM) Blood pressure sites Arm, left (01/07/24 8:02 AM) Arm, right (01/07/24 6:09 AM) Arm, left (01/07/24 3:48 AM) Temperature Route Oral (01/07/24 8:02 AM) Oral (01/07/24 3:48 AM) Social History Social History Type Response Smoking Status Former smoker, quit more than 30 days ago entered on: 09/27/20 Sex EKG study * Event Display: ECG 12-Lead Authored Date: Please click on pdf link to open report * Event Display: ECG 12-Lead Authored Date: Ventricular Rate: 91 BPM Atrial Rate: 91 BPM P-R Interval: 150 ms QRS Duration: 78 ms Q-T Interval: 360 ms QTC Calculation(Bazett): 442 ms P Minerva: 39 degrees R Minerva: -29 degrees T Minerva: 8 degrees Normal sinus rhythm Minimal voltage criteria for LVH, may be normal variant ( R in aVL ) Possible Anterolateral infarct (cited on or before 07-JAN-2024) Abnormal ECG When compared with ECG of 13-DEC-2023 09:30, No significant change Reconfirmed by SHREYAS COVARRUBIAS ([id number]) on 01/07/2024 7:15:41 AM [place]: SHREYAS COVARRUBIAS * Event Display: EKG Authored Date: Patient Care team information Care Team Personnel Name: Alexandra Whipple RN Position: S RN Member Role: Primary Care Nurse Name: Lawrence Cano RN Position: [facility] RN Member Role: Primary Care Nurse Name: Ella Benjamin NP Position: Reference Physician Member Role: PCP Address: Address: [address] [place] [address] [address] [facility] [place], [place] [address] Name: Nayana Bradshaw RN Position: [facility] RN Member Role: Primary Care Nurse Name: Ana María Espino RN Position: S RN Member Role: Primary Care Nurse Name: Raji Somers RN Position: S RN Member Role: Primary Care Nurse Name: Ulisses Barboza Position: S RN Member Role: Primary Care Nurse Name: Dahiana Thrasher RN Position: [facility] ED RN W/OE and Tasks Member Role: Primary Care Nurse Name: Shira Ewign RN Position: S RN Member Role: Primary Care Nurse Name: Rick Chi RN Position: S RN Member Role: Primary Care Nurse Name: Maggi Fagan RN Position: [facility] ED RN W/OE and Tasks Member Role: Primary Care Nurse Name: Marlo Davies RN Position: S RN Member Role: Primary Care Nurse Name: Moni Rodriguez Position: [facility] RN Member Role: Primary Care Nurse Name: Lawson Rivers RN Position: [facility] RN Supv Member Role: Primary Care Nurse Name: Mark Mccullough RN Position: [facility] RN Member Role: Primary Care Nurse Name: Ana María Ugarte RN Position: [facility] RN Member Role: Primary Care Nurse Name: Nayana Reyes RN Position: [facility] RN Member Role: Primary Care Nurse Name: Capo Sales RN Position: [facility] RN Member Role: Primary Care Nurse Name: Yenni Medellin RN Position: [facility] RN Member Role: Primary Care Nurse Name: Anna Cespedes RN Position: [facility] RN Member Role: Primary Care Nurse Name: Gabino Cespedes RN Position: [facility] RN Member Role: Primary Care Nurse Care Team Related Persons Name: MARK CLAY Address: home [address] [place] [id number] [facility] Name: DORIS KNUTSON Address: home [address] [place] [id number]
--- OUTSIDE RECORDS SUMMARY | 2024-02-24 19:47 | XMS_ITS | Continuity of Care Document ---
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 physician, Dr. Catrachito Mohr. ? Uziel Leary D.O.?? Room Service Manager, Emergency Psychiatry Services Division of Consultation-Liaison Psychiatry Department of Psychiatry [facility]?? Problem List/Past Medical History Ongoing Amenorrhea Bipolar disorder Body mass index 30+ - obesity Chronic renal impairment Constipation Diabetes insipidus HTN - Hypertension Hyperlipidemia Nocturia Primary hypertension Rash Schizoaffective disorder Severe obesity (BMI 35.0-39.9) with comorbidity Type II diabetes mellitus Urge incontinence UTI (urinary tract infection) Medications Inpatient Acetaminophen Tablet, 650 mg, By Mouth, Every 8 hours, PRN atorvastatin 20 mg oral tablet, 20 mg, By Mouth, Daily at bedtime benztropine 1 mg oral tablet, 0.5 mg, By Mouth, 2 times a day Cetirizine Liquid, 10 mg= 10 mL, By Mouth, Daily Clozapine Tablet, 250 mg, By Mouth, Daily at bedtime Depakote ER Tablet, 1500 mg, By Mouth, Daily at bedtime FLUoxetine 20 mg oral capsule, 20 mg, By Mouth, Daily hydrOXYzine pamoate 25 mg oral capsule, 25 mg, By Mouth, 3 times a day, PRN Melatonin Tablet, 6 mg, By Mouth, Daily at bedtime, PRN metFORMIN 500 mg oral tablet, 500 mg= 1 each, By Mouth, 2 times a day olanzapine 5 mg oral tablet, 5 mg, By Mouth, Every 6 hours, PRN Trazodone Tablet, 50 mg, By Mouth, Daily at bedtime, PRN Home acetaminophen 325 mg oral tablet, 650 mg, By Mouth, Every 6 hours, PRN atorvastatin 20 mg oral tablet, 20 mg= 1 tablet, By Mouth, Daily at bedtime benztropine 0.5 mg oral tablet, 0.5 mg= 1 tablet, By Mouth, 2 times a day cetirizine 5 mg oral tablet, 5 mg= 1 tablet, By Mouth, Daily at bedtime, PRN cholecalciferol 1000 intl units oral tablet, 25 mcg= 1 tablet, By Mouth, Daily clozapine 100 mg oral tablet, See Instructions divalproex sodium 500 mg oral enteric coated tablet, 1500 mg= 3 tablet, By Mouth, Daily at bedtime docusate sodium 100 mg oral capsule, 100 mg= 1 capsule, By Mouth, 2 times a day, PRN FLUoxetine 20 mg oral capsule, 20 mg= 1 capsule, By Mouth, Daily hydrOXYzine pamoate 25 mg oral capsule, See Instructions Maalox Plus Liquid, 30 mL, By Mouth, [...] tablet, By Mouth, Daily at bedtime, PRN Allergies Apples Bactrim DS??(acute renal failure) Benadryl Grapes codeine haloperidol ibuprofen lithium penicillin Social History Alcohol Use: Past. Electronic Cigarette/Vaping Electronic Cigarette Use: Never. Exercise Self assessment: Fair condition. Regular exercise: No. Home/Environment Living situation: [facility]. Nutrition/Health Diet: Low sodium. Sexual Sexually involved in last 6 months: Yes. Substance Abuse Use: Past. Tobacco Use: Former smoker, quit more than 30 days ago. Family History Cancer of breast: Sister. Diabetes mellitus type 2: Father. Heart attack: Father. Hypertension: Father. Stroke: Father. Immunizations Vaccine Date Status influenza virus vaccine, inactivated - Not Given Comments : Patient Refuses influenza virus vaccine, inactivated - Not Given Comments : Chronic Disease (Disorder) pt already received at [facility] per pt zoster vaccine, inactivated 08/16/2023 Recorded influenza virus vaccine, inactivated 08/13/2023 Recorded influenza virus vaccine, inactivated 05/24/2022 Recorded SARS-CoV-2 [...] 07/29/1999 Given tetanus-diphtheria toxoids (Td) 07/10/1997 Given Note * Mauri PADILLA, Chance Patel: PERFORM Event Display: Patient Education Leaflets Authored Date: [id number] Psychosis ?? [id number] Psychosis Psychosis is a serious symptom of certain mental health problems. It also can be caused by some physical disease, traumatic experiences, or drugs and toxins. Psychosis involves perceiving reality differently from those around you. The difference between reality and what you think is reality becomesblurred in your mind. There are different kinds of psychosis, depending on the cause: ??? Health problems such as infections, thyroid disorders, some cancers, sleep deprivation, low or high blood sugar levels, or dementia ??? Drug-induced from drugs such as marijuana, alcohol, methamphetamine, cocaine, LSD, or PCP ??? Bipolar disorder ??? Depression ??? Schizophrenia Symptoms The symptoms of psychosis may not all be the same for each person. But they usually involve: ??? Hallucinations. Seeing, hearing, feeling, or even tasting or smelling things that are not there. ??? Delusions.??Believing something that's not true, or false beliefs that are not part of a person's nondenominational or cultural background. There may also be disturbances in thinking, speech, and behavior. These can include: ??? Hearing voices that others don't hear ??? Seeing things that others don't see ??? Racing thoughts ??? Lack of energy ??? Feeling very fearful ??? Disorganized speech ??? Intentional or unintentional bodily harm to others ??? An unfounded sense of not trusting people around you (paranoia) ??? Trouble thinking or concentrating clearly ??? Depression, feeling suicidal ??? Insomnia ??? Withdrawalfrom those around you Treatment for psychosis depends on the cause. Medicine is often used, with or without psychotherapy. You may need to stay in the hospital. This is to protect you and to carefully monitor medicines. ?? Home care ??? Find a healthcare provider and therapist who meet your needs. Seek help when you feellike your symptoms are returning. ??? Make sure to take your medicine as directed even if you thinkyou don't need it. ??? Never stop your medicine or change the dose without talking with your provider. Never use another person's medicine. ??? If you have trouble paying for your prescription, let your providers know so they can help you find resources. ??? Talk with your family and friends about your feelings and thoughts. Ask them to help you recognize any behavior changes so you can get help right away., Medicines can be adjusted if needed. ??? Contact your provider if you feel like your medicine is not working or you are having bad side effects. Medicine changes may need to be made. ?? Follow-up care is critical It's important to manage your condition by staying in close and regular contact with your healthcare team. Always follow up with your counselor, therapist, or psychiatrist as advised. Don't skip taking your medicine or change it without talking with your healthcare team. Take it as advised even if you think you don't need it. Also: ??? Tell each of your healthcare providers about all of the prescription medicines, [id number] medicines, illegal drugs, vitamins, and supplements you take.??Certain supplements interact with medicines. This can result in dangerous side effects.??Ask your pharmacist when you have questions about drug interactions. Tell your provider if you drink alcohol. If you do, tell them how oftenand how much you drink. ??? Tell your healthcare provider about all your medical conditions and anyrecent illnesses, such as infections. ??? Follow-up with lab tests as advised by your healthcare provider. Lab work is very important and can tell your provider the blood level of certain medicines. They can see if your dose needs to be increased or decreased. ??? Keep all follow-up appointments with healthcare providers who are treating other medical conditions. Long-term conditions like diabetes or thyroid problems can affect your emotional well-being if they are not controlled. ?? Crisis care If you or the person is at immediate risk, call or text the National Suicide Lifeline at 988. Or call emergency services at 911. You will be connected to trained crisis counselors. An online chat option is also available. [employer] is free and available 09/04. The Lifeline will work together with 911operators to make sure you get the care you need. Call 988 if you: ??? Have suicidal thoughts, a suicide plan, and the means to carry out the plan ??? Hear voices that are telling you to harm yourself or others ??? Have trouble breathing ??? Are very confused ??? Are very drowsy or have trouble awakening ??? Faint or lose??consciousness ??? Have arapid heart rate, very low heart rate, or a new irregular heart rate ??? Have a seizure ?? When to seek medical advice Call your healthcare provider right away if any of these occur: ??? Gradual or rapid return of psychotic symptoms ??? Feeling like you want to harm yourself or another ??? Feeling extremely depressed??? Feeling very anxious, agitated, or angry ??? Feeling out of control or being controlled by others ??? Feeling unable to take care of yourself ??? Seeing things or hearing voices that you know aren't real ??? Family members or friends are worried about your emotional or physical health and ask you to call your provider ??? Symptoms from other health conditions that get worse. Or new symptoms develop. ?? Last Reviewed Date: 2023 ?? 7026-1795 [employer]. All rights reserved. This information is not intended as a substitute for professional medical care. Always follow your healthcare professional's instructions. ?? Patient Care team information Care Team Personnel Name: Alexandra Whipple RN Position: [facility] RN Member Role: Primary Care Nurse Name: Lawrence Cano RN Position: [facility] RN Member Role: Primary Care Nurse Name: Nayana Bradshaw RN Position: S RN Member Role: Primary Care Nurse Name: Ana María Espino RN Position: S RN Member Role: Primary Care Nurse Name: Raji Somers RN Position: S RN Member Role: Primary Care Nurse Name: Ulisses Barboza Position: S RN Member Role: Primary Care Nurse Name: Dahiana Thrasher RN Position: [facility] JAMAL RN W/OE and Tasks Member Role: Primary Care Nurse Name: Shira Ewing RN Position: S RN Member Role: Primary Care Nurse Name: Rick Chi RN Position: [facility] RN Member Role: Primary Care Nurse Name: Maggi Fagan RN Position: [facility] ED RN W/OE and Tasks Member Role: Primary Care Nurse Name: Marlo Davies RN Position: [facility] RN Member Role: Primary Care Nurse Name: Moni Rodriguez Position: [facility] RN Member Role: Primary Care Nurse Name: Not on Staff, PCP Position: [facility] Physician (General Medicine) Member Role: PCP Name: Lawson Rivers RN Position: [facility] RN Supv Member Role: Primary Care Nurse Name: Mark Mccullough RN Position: [facility] RN Member Role: Primary Care Nurse Name: Ana María Ugarte RN Position: [facility] RN Member Role: Primary Care Nurse Name: Nayana Reyes RN Position: [facility] RN Member Role: Primary Care Nurse Name: Capo Sales RN Position: [facility] RN Member Role: Primary Care Nurse Name: Yenni Medellin RN Position: [facility] RN Member Role: Primary Care Nurse Name: Anna Cespedes RN Position: [facility] RN Member Role: Primary Care Nurse Name: Gabino Cespedes RN Position: [facility] RN Member Role: Primary Care Nurse Care Team Related Persons Name: MARK CLAY Address: home [address] [place] [address] Name: RESIDENTIAL, LORI Name: DORIS KNUTSON Address: home [address] [place] [address]
--- OUTSIDE RECORDS SUMMARY | 2024-02-24 19:47 | XMS_ITS | Continuity of Care Document ---
Author Organization [facility] Address [address], [address] [place] [address]- Care Team Providers Care Trim Stencil Maker Name Role Phone Sidney Jackson MD Primary Care Physician Encounter [facility] Date(s): 04/11/23 [facility] [address] [place] [address]- Allergies, Adverse Reactions, Alerts Substance Reaction Severity Status ibuprofen Active haloperidol Active lithium Active penicillin Active Benadryl Active Bactrim DS 1 acute renal failure Active Apples Active Grapes Active 1had episodes of acute renal failure during admission to [facility] -- resolved both times off Bactrim and [...] 02/07/23 12:50:00 EDT, Route to Pharmacy Electronically, [facility], Partialfill upon patient request if the prescription is fo... Start Date: 02/07/23 Status: Ordered clozapine 100 mg oral tablet 3 tablet = 300 mg, By Mouth, Daily at bedtime, # 90 tablet, 1 Refills, Maintenance, 02/07/23 12:50:00 EDT, [facility], Partial fill upon patient request if the prescription is for a schedule II opioid drug., 165, cm, 01/31/23... Start Date: 02/07/23 Status: Ordered desmopressin 0.2 mg oral tablet 1 tablet = 0.2 mg, By Mouth, Daily at bedtime, # 30 tablet, 0 Refills, Maintenance, 02/07/23 12:52:00 EDT, Tablet, [facility], Partial fill upon patient request if the prescription is for a schedule II opioid drug., 165, cm, 0... Start Date: 02/07/23 Status: Ordered divalproex sodium 500 mg oral tablet, extended release 3 tablet = 1,500 mg, By Mouth, Daily at bedtime, # 90 tablet, 1 Refills, Maintenance, 02/07/23 12:51:00 EDT, ER Tablet, [facility], Partial fill upon patient request if the prescription is for a schedule II opioid drug., 165,... Start Date: 02/07/23 Status: Ordered docusate sodium 100 mg oral tablet = 100 mg, By Mouth, 2 times a day, # 60 tablet, 0 Refills, Maintenance, 02/07/23 12:51:00 EDT, Tablet, [facility], Partial fill upon patient request if the prescription is for a schedule II opioid drug., 165, cm, 01/31/23 0:39... Start Date: 02/07/23 Status: Ordered fluPHENAZine decanoate 25 mg/mL injectable solution = 25 mg, Intramuscular, Every 21 days, Last given 01/26/23 due 02/16/23, # 1 kit, 1 Refills, Maintenance, 02/07/23 12:51:00 EDT, [facility]- , Partial fill upon patient request [...] 2 Refills, Maintenance, 02/07/23 12:58:00 EDT, Solution, [facility]- , Partial fill upon patient request if the prescription is for a schedule II opioid drug., 165,... Start Date: 02/07/23 Status: Ordered metFORMIN 500 mg oral tablet 1 each = 500 mg, By Mouth, 2 times a day, # 60 tablet, 1 Refills, Maintenance, 02/07/23 12:51:00 EDT, Tablet, [facility]-, Partial fill upon patient request if the prescription is for a schedule II opioid drug., 165, cm, ... Start Date: 02/07/23 Status: Ordered trospium 60 mg oral capsule, extended release 1 capsule = 60 mg, By Mouth, Daily in AM, # 30 capsule, 11 Refills, Maintenance, 04/12/23 11:23:00 EDT, CR Capsule, [facility]-, Partial fill upon patient request if [...] Team Personnel Name: Lawrence Cano RN Position: [facility] RN Member Role: Primary Care Nurse Name: Nayana Bradshaw RN Position: [facility] RN Member Role: Primary Care Nurse Name: Ana María Espino RN Position: [facility] RN Member Role: Primary Care Nurse Name: Raji Somers RN Position: [facility] RN Member Role: Primary Care Nurse Name: Ulisses Barboza Position: [facility] RN Member Role: Primary Care Nurse Name: Dahiana Thrasher RN Position: [facility] ED RN W/OE and Tasks Member Role: Primary Care Nurse Name: Rick Chi RN Position: S RN Member Role: Primary Care Nurse Name: Maggi Fagan RN Position: [facility] ED RN W/OE and Tasks Member Role: Primary Care Nurse Name: Lawson Rivers RN Position: [facility] RN Supv Member Role: Primary Care Nurse Name: Mark Mccullough RN Position: [facility] RN Member Role: Primary Care Nurse Name: Sidney Jackson MD Position: [facility] Physician - Primary Care Member Role: PCP Address: Address: [address] [place], [place] [address] Name: Nayana Reyes RN Position: S RN Member Role: Primary Care Nurse Name: Anna Cespedes RN Position: [facility] RN Member Role: Primary Care Nurse Name: Gabino Cespedes RN Position: [facility] RN Member Role: Primary Care Nurse Care Team Related Persons Name: BUZZ CASTELLANOS Address: [address] [place] [address] Name: MARK CLAY Address: home [address] [place] [address] Name: DORIS KNUTSON Address: home [address] [place] [address]
--- OUTSIDE RECORDS SUMMARY | 2024-02-24 19:47 | XMS_ITS | Continuity of Care Document ---
Author Organization [facility] ter Address [address] [place] [id number]- Care Team Providers Care Medical Housekeeper Name Role Phone Not on Staff, PCP Primary Care Physician Unavail able Encounter [facility] Date(s): 02/02/24 - 02/02/[address] [address]- Encounter Diagnosis Dizzinesses(Final) - 02/02/24 Discharge Disposition: A-D/C Home Attending Physician: Mercedes Germain DO Admitting Physician: Mercedes Germain DO Referring Physician: Not on Staff, Referring MD Allergies, Adverse Reactions, Alerts Substance Reaction Severity Status codeine Active ibuprofen Active haloperidol Active penicillin Active lithium Active Benadryl Active Bactrim DS 1 acute renal failure Active Grapes Active Apples Active 1had episodes of acute renal failure during admission to [facility] -- resolved both times off Bactrim and [...] tablet, 0 Refills, Maintenance, 12/31/23 8:14:00EDT, Tablet, [facility], Partial fill upon patient request if the prescription is for a schedule II opioid drug., 165, cm, 12/30/23 20:24:00... Start Date: 12/31/23 Stop Date: 01/30/24 Status: Ordered benztropine 0.5 mg oral tablet 0.5 mg, 1, tablet, By Mouth, 2 times a day, # 60 tablet, Refills 0, Tot. Refills 0, Maintenance, 12/31/23 8:15:00 EDT, Route to Pharmacy Electronically, [facility], Partial fill upon patient request if the prescription is for a schedule II o... Start Date: 12/31/23 Stop Date: 01/30/24 Status: Ordered cetirizine 5 mg oral tablet 1 tablet = 5 mg, By Mouth, Daily at bedtime, PRN Other, allergy symptoms, # 30 tablet, 0 Refills, Maintenance, 12/31/23 8:15:00 EDT, Tablet, [facility], Partial fill upon patient request ifthe prescription is for a schedule II opioid drug.,... Start Date: 12/31/23 Stop Date: 01/30/24 Status: Ordered cholecalciferol 1000 intl units oral tablet 1 tablet = 25 mcg, By Mouth, Daily, # 30 tablet, 0 Refills, Maintenance, 12/31/23 8:15:00 EDT, Tablet, [facility], Partial fill upon patient request if the prescription is for a schedule IIopioid drug., 165, cm, 12/30/23 20:24:00 EDT, [place]... Start Date: 12/31/23 Stop Date: 01/30/24 Status: Ordered clozapine 100 mg oral tablet See Instructions, 250 (2.5 tablets) mg By Mouth Daily at bedtime 30 days, # 75 tablet, 0 Refills, Maintenance, 12/31/23 8:16:00 EDT, Tablet, [facility], Partial fill upon patient request ifthe prescription is for a schedule II opioid drug.,... Start Date: 12/31/23 Status: Ordered divalproex sodium 500 mg oral enteric coated tablet 3 tablet = 1,500 mg, By Mouth, Daily at bedtime, # 90 tablet, 0 Refills, Maintenance, 12/31/23 8:17:00 EDT, Tablet, [facility], Partial fill upon patient request if the prescription is for a schedule II opioid drug., 165, cm, 12/30/23 20:24:... Start Date: 12/31/23 Stop Date: 01/30/24 Status: Ordered docusate sodium 100 mg oral capsule 100 mg, 1, capsule, By Mouth, 2 times a day, PRN, # 60 capsule, Refills 0, Tot. Refills 0, Maintenance, Constipation, 12/31/23 8:18:00 EDT, Route to Pharmacy Electronically, [facility], Partial fill upon patient request if the prescription i... Start Date: 12/31/23 Stop Date: 01/30/24 Status: Ordered FLUoxetine 20 mg oral capsule 20 mg, 1, capsule, By Mouth, Daily, # 30 capsule, Refills 0, Tot. Refills 0, Maintenance, 12/31/23 8:18:00 EDT, Route to Pharmacy Electronically, [facility], Partial fill upon patient request if [...] 0 Refills, Maintenance, 12/31/23 8:19:00 EDT, Tablet, [facility], Partial fill upon patient request if [...] 12/31/23 8:20:00 EDT, Route to Pharmacy Electronically, [facility], Partial fill upon patient request if [...] Exam Date Time Procedure Performing Provider Status 02/02/24 5:35 AM Chest 2 Views Frontal and Lat Shraddha Cespedes Serg; Kieran (Verified) Notes: (Chest 2 Views Frontal and Lat) Reason For Exam: dizziness;Other: RESULT: Chest 2 Views Frontal and Lat Chest 2 Views Frontal and Lat Hx of Present Illness: pt coming from [facility]- following protocal raffi [facility] worker statedshe ate and became dizzy weak altered; Reason: Other:; dizziness; Clinical Question(s): Pneumonia COMPARISON: 01/27/2024 FINDINGS: LINES AND TUBES: None. LUNGS AND PLEURA: Some increased density noted on the lateral view posteriorly. This appears new compared to some of the older examinations. Possible findings of aspiration or pneumonia. No pleural effusion. No pneumothorax. HEART, MEDIASTINUM AND COLIN: Heart is normal in size. Normal mediastinal and hilar contour. BONES AND SOFT TISSUES: No acute abnormality. IMPRESSION: Increased density on the lateral view may represent aspiration, pneumonia, or atelectasis WSN: [id number] Ordering Physician: Lela Tian Dictated By: Flavio Mckinley MD Dictated Date/Time: 02/02/24 6:31 am Reviewed By: Flavio Mckinley MD Signed By: Flavio Mckinley MD Signed Date/Time: 02/02/24 6:31 am Transcribed By: RANI Transcribed Date/Time: 02/02/24 6:29 am Vital Signs Most recent to oldest [Reference Range]: 1 2 3 Oxygen Saturation [94-100 %] 100 % (02/02/24 8:52 AM) 100 % (02/02/24 6:47 AM) 98 % (02/02/24 2:34 AM) Pulse Rate [55-90 bpm] 97 bpm *H* (02/02/24 8:52 AM) 94 bpm *H* (02/02/24 6:47 AM) 101 bpm *H* (02/02/24 2:34 AM) Blood Pressure [90-138/55-84 mm Hg] 130/88mm Hg (02/02/24 8:52 AM) 126/86mm Hg (02/02/24 6:47 AM) 136/81mm Hg (02/02/24 2:34 AM) Respiratory Rate [16-30 br/min] 16 br/min (02/02/24 8:52 AM) 14 br/min *L* (02/02/24 6:47 AM) 17 br/min (02/02/24 2:34 AM) Temperature [96.8-100.4 DegF] 98.4 DegF (02/02/24 8:52 AM) 98.4 DegF (02/02/24 2:34 AM) Mode of Delivery (Oxygen) Room air (02/02/24 8:52 AM) Room air (02/02/24 6:47 AM) Room air (02/02/24 2:34 AM) Blood pressure sites Arm, right (02/02/24 8:52 AM) Arm, left (02/02/24 2:34 AM) Temperature Route Oral (02/02/24 8:52 AM) Oral (02/02/24 2:34 AM) Social History Social History Type Response Smoking Status Former smoker, quit more than 30 days ago entered on: 09/27/20 Sex EKG study * Event Display: ECG 12-Lead Authored Date: Please click on pdf link to open report * Event Display: ECG 12-Lead Authored Date: Ventricular Rate: 103 BPM Atrial Rate: 103 BPM P-R Interval: 154 ms QRS Duration: 78 ms Q-T Interval: 340 ms QTC Calculation(Bazett): 445 ms P Commiskey: 23 degrees R Commiskey: -32 degrees T Commiskey: 22 degrees Sinus tachycardia Left axis deviation Minimal voltage criteria for LVH, may be normal variant ( R in aVL ) Cannot rule out Inferior infarct (cited on or before 28-JAN-2024) Possible Anterolateral infarct , age undetermined Abnormal ECG When compared with ECG of 28-JAN-2024 00:24, Borderline criteria for Anterior infarct are now Present Borderline criteria for Anterolateral infarct are now Present Questionable change in initial forces of Inferior leads Confirmed by ELIZABETH SWEENEY MD ([id number]) on 02/02/2024 8:57:39 AM [place]: ELIZABETH SWEENEY MD Patient Care team information Care Team Personnel Name: Alexandra Whipple RN Position: [facility] RN Member Role: Primary Care Nurse Name: Lawrence Cano RN Position: [facility] RN Member Role: Primary Care Nurse Name: Nayana Bradshaw RN Position: [facility] RN Member Role: Primary Care Nurse Name: Ana María Espino RN Position: [facility] RN Member Role: Primary Care Nurse Name: Raji Somers RN Position: [facility] RN Member Role: Primary Care Nurse Name: Ulisses Barboza Position: [facility] RN Member Role: Primary Care Nurse Name: Dahiana Thrasher RN Position: [facility] ED RN W/OE and Tasks Member Role: Primary Care Nurse Name: Shira Ewing RN Position: [facility] RN Member Role: Primary Care Nurse Name: Rick Chi RN Position: [facility] RN Member Role: Primary Care Nurse Name: Maggi Fagan RN Position: [facility] ED RN W/OE and Tasks Member Role: Primary Care Nurse Name: Marlo Davies RN Position: [facility] RN Member Role: Primary Care Nurse Name: Moni Rodriguez Position: [facility] RN Member Role: Primary Care Nurse Name: Not on Staff, PCP Position: [facility] Physician (General Medicine) Member Role: PCP Name: Lawson Rivers RN Position: [facility] RN Supv Member Role: Primary Care Nurse Name: Mark Mccullough RN Position: [facility] RN Member Role: Primary Care Nurse Name: Ana María Ugarte RN Position: [facility] RN Member Role: Primary Care Nurse Name: Nayana Reyes RN Position: [facility] RN Member Role: Primary Care Nurse Name: Capo Sales RN Position: [facility] RN Member Role: Primary Care Nurse Name: Yenni Medellin RN Position: [facility] RN Member Role: Primary Care Nurse Name: Anna Cespedes RN Position: [facility] RN Member Role: Primary Care Nurse Name: Gabino Cespedes RN Position: [facility] RN Member Role: Primary Care Nurse Care Team Related Persons Name: MARK CLAY Address: home [address] [place] [address] [address] [place] [address] Name: RENÉ LOPEZ Name: EAMON, DORIS Address: [address] [place] [address]
--- OUTSIDE RECORDS SUMMARY | 2024-02-24 19:47 | XMS_ITS | Continuity of Care Document ---
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 agitation or??slowing Mood: ... Affect: constricted Speech: Minimal speech. Perception: No delusions, AVH, paranoia, or abnormal thought content elicited. Orientation:??unable to assess Memory: poor Thought Process: unable to assess Thought Content: unable to assess Insight: impaired Judgment: impaired?? Suicidality/Self-destructive Behavior: Endorsed SI with this typewriter repairer as well as to PT earlier in theday Homicidality/Violence:??unable to assess ?? MSK Exam:??able to move all 4 extremities spontaneously. No rigidity noted.??Was not observed ambulating by this typewriter repairer. Assessment/Plan Jadyn Boykin is a??53-year-old female??with a past psychiatric history of schizoaffective disorder,??PTSD, with multiple past inpatient psychiatric hospitalizations,??who initially presented to [facility] emergency room on 12/07??from her alf due to concern for decompensation, bizarre behavior, ??paranoia,??and disorganization. ??She was??subsequently??found appropriate for??inpatient level of care and admitted to??[facility] on 12/09.??While on [facility], clozapine was decreased to 250 mg daily (from 300 mg) due to excessive sedation.?? Patient was transferred to medical floor on 12/12 due to ELIEZER likely in the setting of poor PO intake.?? She was medically cleared on 12/13.?? On assessment today, patient??is??calm but uncooperative,??difficult to arouse and when awake??refuses??to interact.?? Did endorse SI with this typewriter repairer??as well as with??physical therapist earlier in the day,??and seems to advocate??for return to [facility].?? Despite some concern??for barriers to placement on account of mobility issues,??patient was??observed by multiple staff members??to be??ambulating??out of bed??independently??without assistance.?? Per collateral obtained from alf,??patient has history of??pretending to fall.?? At this time,??it is likely??the patient's??mobility??issues??are??behavioral ratherthan physical.?? Given continued disorganization and patient endorsing SI,??she is appropriate for??inpatient??level of care. ? Diagnosis: Schizoaffective disorder, bipolar type PTSD, by history Intellectual disability, by history ?? Recommendations: -Patient appropriate for inpatient level of care.?? Bed search??initiated. -Continue with constant dedicated driver??due to patient endorsing??SI. -Patient may not leave AMA without psychiatric clearance. -Appropriate to continue with current psychotropic medications as prescribed. ?? Case discussed with attending psychiatrist, Dr. Salguero ?? Rock Arceo, DO PGY-2 Department of Psychiatry [facility] Pager [phone]?? Problem List/Past Medical History Ongoing Amenorrhea Bipolar disorder Body mass index 30+ - obesity Chronic renal impairment Constipation Diabetes insipidus HTN - Hypertension Hyperlipidemia Nocturia Obese class I Primary hypertension Rash Schizoaffective disorder Type II diabetes mellitus Urge incontinence UTI (urinary tract infection) Medications Inpatient Acetaminophen Tablet, 650 mg, By Mouth, Every 4 hours, PRN atorvastatin 20 mg oral tablet, 20 mg, By Mouth, Daily at bedtime benztropine 1 mg oral tablet, 0.5 mg, By Mouth, 2 times a day Clozapine Tablet, 250 mg, By Mouth, Daily Depakote ER Tablet, 1500 mg, By Mouth, Daily at bedtime Dextrose 50% Inj Syringe (25Gm), 12.5 Gm, IV Push Slowly, Every 20 minutes, PRN Dextrose 50% Inj Syringe (25Gm), 25 Gm, IV Push Slowly, Every 15 minutes, PRN Docusate Sodium Capsule, 100 mg= 1 capsule, By Mouth, 2 times a day, PRN FLUoxetine 20 mg oral capsule, 20 mg, By Mouth, Daily fluPHENAZine 5 mg oral tablet, 2.5 mg, By Mouth, 3 times a day, PRN Glucagon Inj, 1 mg, Intramuscular, Once, PRN Glucose Gel, 15 Gm, By Mouth, Every 20 minutes, PRN Glucose Gel, 30 Gm, By Mouth, Every 20 minutes, PRN Heparin Inj, 5000 units= 1 mL, Subcutaneous Injection, 2 times a day Insulin LISPRO Sliding Scale, 2-10 units, Subcutaneous Injection, 3 times a day before meals Lantus Inj, 21 units= 0.21 mL, Subcutaneous Injection, Daily at bedtime Melatonin Tablet, 3 mg, By Mouth, Daily at bedtime, PRN MiraLax Powder, 17 Gm= 1 pack/packet, By Mouth, Daily, PRN NaCL 0.9% Flush, 3 mL, IV Push, Every 8 hours NaCL 0.9% Flush, 3 mL, IV Push, Every 8 hours, PRN Robitussin DM Liquid, 10 mL, By Mouth, Every 4 hours, PRN Senna Tablet, 8.6 mg= 1 tablet, By Mouth, 2 times a day, PRN Simethicone Tablet, 80 mg, Chew, 3 times a day, PRN Home acetaminophen 325 mg oral tablet, 650 mg, By Mouth, Every 6 hours, PRN atorvastatin 20 mg oral tablet, 20 mg, By Mouth, Daily at bedtime benztropine 1 mg oral tablet, 0.5 mg, By Mouth, 2 times a day cetirizine 5 mg oral tablet, 5 mg, By Mouth, Daily at bedtime, PRN cholecalciferol 1000 intl units oral tablet, By Mouth, Daily clozapine 100 mg oral tablet, 250 mg, By Mouth, Daily at bedtime divalproex sodium 500 mg oral tablet, extended release, 1500 mg, By Mouth, Daily at bedtime docusate sodium 100 mg oral capsule, 100 mg= 1 capsule, By Mouth, 2 times a day FLUoxetine 20 mg oral capsule, 20 mg, By Mouth, Daily fluPHENAZine 5 mg oral tablet, 2.5 mg, By Mouth, 3 times a day, PRN Glucagon Inj, 1 mg, Intramuscular, Once, PRN Glucose Gel, 15 Gm, By Mouth, Every 20 minutes, PRN Glucose Gel, 30 Gm, By Mouth, Every 20 minutes, PRN hydrOXYzine pamoate 25 mg oral capsule, 25 mg, By Mouth, Every 6 hours, PRN Insulin Lispro, 4-12 units, Subcutaneous Injection, 3 times a day before meals Lantus Inj, 21 units= 0.21 mL, Subcutaneous Injection, Daily at bedtime LORazepam 0.5 mg oral tablet, 0.5 mg, By Mouth, 2 times a day, PRN Maalox Plus Liquid, 30 mL, By Mouth, Every 4 hours, PRN melatonin 3 mg oral tablet, 6 mg, By Mouth, Daily at bedtime, PRN metFORMIN 500 mg oral tablet, 500 mg= 1 each, By Mouth, 2 times a day with meals MiraLax Powder, 17 Gm= 1 pack/packet, By Mouth, Daily, PRN ondansetron 4 mg oral tablet, disintegrating, 4 mg, By Mouth, Every 6 hours, PRN Allergies Apples Bactrim DS??(acute renal failure) Benadryl Grapes haloperidol ibuprofen lithium penicillin Social History Alcohol Use: Past. Electronic Cigarette/Vaping Electronic Cigarette Use: Never. Exercise Self assessment: Fair condition. Regular exercise: No. Home/Environment Living situation: [facility]. Nutrition/Health Diet: Low sodium. Sexual Sexually [...] Chronic Disease (Disorder) pt already received at alf per pt influenza virus vaccine, inactivated 05/24/2022 [...] tetanus-diphtheria toxoids (Td) 07/10/1997 Given Note * Shira Ewing RN: PERFORM Event Display: Discharge/Transfer Note Hospital Authored Date: [id number] Patient discharged to [facility], transferred via wheelchair and accompanied by security. IV site removedbefore patient left unit. Report was given to receiving RN. Patient aware of transfer, all belongings with patient. * Tom Alvarez MD: PERFORM Event Display: Discharge/Transfer Note Hospital Authored Date: [id number] Patient: ??JADYN BOYKIN ? Age:??53 Years?Sex:??Female?:??1970?? Patient Information Discharge Location: [facility] Primary Care Physician: Sidney Jackson MD Admit Date/Time: 12/13/23 13:06 Discharge Disposition Discharge Disposition: ?? Discharge Diagnosis Altered mental status (R41.82) Schizoaffective disorder (F25.9) Anxiety disorder (F41.9) Acute kidney injury (N17.9) Hypertension (I10) Hyperlipidemia (E78.5) Diabetes mellitus (E11.9) _ Discharge Medications Acetaminophen (acetaminophen 325 mg oral tablet)?650?Milligram?By Mouth?Every 6 hours?as needed?/Headache?Pain , Mild Al Hydroxide/Mg Hydroxide/Simethicone (Maalox Plus Liquid)?30?Milliliter?By Mouth?Every4 hours?as needed?Dyspepsia Atorvastatin (atorvastatin 20 mg oral tablet)?20?Milligram?By Mouth?Daily at bedtime Benztropine (benztropine 1 mg oral tablet)?0.5?Milligram?By Mouth?2 times a day Cetirizine (cetirizine 5 mg oral tablet)?5?Milligram?By Mouth?Daily at bedtime?as needed?Other?allergy symptoms Cholecalciferol (cholecalciferol 1000 intl units oral tablet)?By Mouth?Daily Clozapine (clozapine 100 mg oral tablet)?250?Milligram?By Mouth?Daily at bedtime Divalproex Sodium (divalproex sodium 500 mg oral tablet, extended release)?1,500?Milligram?By Mouth?Daily at bedtime Docusate (docusate sodium 100 mg oral capsule)?100?Milligram?1?capsule?By Mouth?2times a day Fluoxetine (FLUoxetine 20 mg oral capsule)?20?Milligram?By Mouth?Daily Fluphenazine (fluPHENAZine 5 mg oral tablet)?2.5?Milligram?By Mouth?3 times a day?asneeded?Agitation Glucagon (Glucagon Inj)?1?Milligram?Intramuscular?Once?as needed?Other Glucose (Glucose Gel)?15?gram?By Mouth?Every 20 minutes?as needed?Blood Glucose?50 to 70 and patient ALERT Glucose (Glucose Gel)?30?gram?By Mouth?Every 20 minutes?as needed?Blood Glucose?LESS THAN 50 and patient ALERT HydrOXYzine (hydrOXYzine pamoate 25 mg oral capsule)?25?Milligram?By Mouth?Every 6 hours?as needed?Anxiety Insulin Glargine (Lantus Inj)?0.21?Milliliter?21?unit(s)?Subcutaneous Injection?Daily at bedtime Insulin Lispro?4-12 units?Subcutaneous Injection?3 times a day before meals?<< Sliding Scale Comments >>100 - 149 ?? 4 units Call if less than [id number] - 199 ?? 6 units 200 - 249?? 8 units 250 - 299 ?? 10 units 300 - 349 ?? 12 units Call if greater than 400<< Sliding Scale Comments >> Lorazepam (LORazepam 0.5 mg oral tablet)?0.5?Milligram?By Mouth?2 times a day?as needed?Anxiety Melatonin (melatonin 3 mg oral tablet)?6?Milligram?By Mouth?Daily at bedtime?as needed?Insomnia Metformin (metFORMIN 500 mg oral tablet)?1?Each?500?Milligram?By Mouth?2 times a day with meals Ondansetron (ondansetron 4 mg oral tablet, disintegrating)?4?Milligram?By Mouth?Every 6hours?as needed?Nausea & Vomiting Polyethylene Glycol 3350 (MiraLax Powder)?1?pack/packet?17?gram?By Mouth?Daily?as needed?Constipation ? Objective Assessment and Plan Altered mental status (R41.82):??53-year-old female patient with a medical history significant for hypertension, hyperlipidemia, diabetes mellitus, chronic back pain, schizoaffective disorder and anxiety disorder who is being transferred from acute psychiatric unit for evaluation of acute kidney injury and altered mental status. Patient is currently at her baseline??lab work is unremarkable renal function is within normal limits and she is medically stable to be discharged back??to??psychiatric unit. ? Altered mental status (R41.82): -She is currently pleasant cooperative alert and following commands, she is slow in her responses??but with a long??standing history of psychiatric disorder??I do not suspect that she is of her baseline.??There is no evidence of any infection Schizoaffective disorder (F25.9): - Anxiety disorder (F41.9): - ??She presented from alf for evaluation of behavioral disturbance (isolating her self- not eating- paranoid behaviors) on 12/08/2023. ??CT head with no acute abnormalities. Patient was admitted to??the inpatient psych unit and then was transferred to the medical team for management??of acute kidney injury and hyperglycemia both of her??problems are resolved blood sugarsare??stable and kidney function has normalized. ??- continue fluoxetine, clozapine and divalproex acid. ??- continue fluphenazine 2.5 mg TID as needed for agitation. ??- Ativan 0.5 mg as needed for anxiety. ?? Per discharge summary from psychiatric unit she has a community Singh order. ??Listed on it are the following medications: ??- Fluphenazine decanoate IM 25 mg IM q. 21 days, up to 50 mg IM q. 14 days ??- Fluphenazine p.o. 2.5 mg 3 times daily as needed agitation; up to 20 mg/day ??- Clozapine 300 mg/day; up to 900 mg/day ??Alternative medications listed on community Singh order: ??- Abilify: Up to 30 mg/day ??- Abilify maintena: Up to 400 mg IM per month ??- Loxapine: Up to 160 mg/day ??- Perphenazine: Up to 64 mg/day ?? Acute kidney injury (N17.9):Resolved - in setting of volume depletion and ANDRE inhibitor use We have discontinued losartan as patient blood pressure is stable without any medication??if needed??blood pressure control??in the future??Norvasc??5 mg daily can be considered ?? Hypertension (I10): - Hyperlipidemia (E78.5): - ??- continue statin. DC losartan as??mentioned above ?? Diabetes mellitus (E11.9): - ??- Lantus 21 unit daily. ??-??Resume sliding scale coverage no changes resume metformin ? Disposition??patient is medically stable and can be discharged??psychiatry will evaluate the patient and if needed inpatient psych she will be transferred back to the psych unit??if they cleared her for discharge to??the alf then we will discharge to the alf??resume all activities as before. ?? Discharge Planning:? Vital Signs?? Temperature: 97.5 DegF (12/14/23 07:00:00) Temperature Route: Oral (12/14/23 07:00:00) Pulse Rate:??102 bpm??High (12/14/23 07:00:00) Respiratory Rate: 20 br/min (12/14/23 07:00:00) Systolic Blood Pressure: 132 mm Hg (12/14/23 07:00:00) Diastolic Blood Pressure:??86 mm Hg??High (12/14/23 07:00:00) Blood pressure sites: Arm, right (12/14/23 07:00:00) Mean Arterial Pressure: 101 mm Hg (12/14/23 07:00:00) Pulse Pressure: 46 mm Hg (12/14/23 07:00:00) Oxygen Saturation: 98 % (12/14/23 07:00:00) Mode of Delivery (Oxygen): Room air (12/14/23 07:00:00) Early Warning Score: 6 (12/14/23 07:58:59) ? . Physical Exam General: [Alert, in no acute cardiopulmonary distress.] Mental Status: [Oriented to person, place and time.?? Patient is slow in her responses but she is following, she is pleasant and not altered Head: [Normocephalic.] Eyes: [Pupils are equal, round and reactive to light. Extraocular muscles intact.] Ear, Nose and Throat: [Oropharynx clear, mucous membranes moist. Ears and nose without masses, lesions or deformities. Tympanic membranes clear bilaterally. Trachea midline.] Neck: [Supple, Full range of motion.] Respiratory: [Clear to auscultation and percussion. No wheezing, rales or rhonchi.] Cardiovascular: [Heart sounds normal. No thrills. Regular rate and rhythm, no murmurs, rubs or gallops.] Gastrointestinal: [Abdomen soft, non-tender, non-distended. Normal bowel sounds. No pulsatile mass.No hepatosplenomegaly.] Genitourinary: [No costovertebral angle tenderness.] Neurologic: [Cranial nerves II-XII grossly intact. No focal neurological deficits. Deep tendon reflexes +2 bilaterally. Flexor plantar response. Moves all extremities spontaneously. Sensation intact bilaterally.] Skin: [No rashes or lesions. No petechiae or purpura. No edema.] Musculoskeletal: [No cyanosis or clubbing. No gross deformities. Normal range of motion.] Psychiatric??following commands alert Pending Results No Pending Results Follow-Up Appointments Added Follow Up ?Time Frame ?Comments Sidney Jackson MD?1 to 2 weeks Home Health Face to Face ^[facility] Results Discharge Labs BLOOD COUNT & DIFF WBC 4.0 k/mm3 ()?? 12/14/2023 00:47 RBC 3.75 m/mm3 (Low)?? 12/14/2023 00:47 Hgb 11.6 Gm/dL (Low)?? 12/14/2023 00:47 Hct 36.0 % ()?? 12/14/2023 00:47 MCV 96.0 femtoliters ()?? 12/14/2023 00:47 MCH 30.9 pg ()?? 12/14/2023 00:47 MCHC 32.2 g/dL (Low)?? 12/14/2023 00:47 Platelet Count 124 k/mm3 (Low)?? 12/14/2023 00:47 RDW-SD 45.1 femtoliters ()?? 12/14/2023 00:47 MPV 10.9 femtoliters ()?? 12/14/2023 00:47 Nucleated RBC (Automated) 0.0 #/100 WBC'S ()?? 12/14/2023 00:47 Abs. NRBC 0.0 k/mm3 ()?? 12/14/2023 00:47 ?? CHEM GENERAL Sodium 138 mmol/L ()?? 12/14/2023 00:47 Potassium 4.5 mmol/L ()?? 12/14/2023 00:47 Chloride 102 mmol/L ()?? 12/14/2023 00:47 Bicarbonate Level 27 mmol/L ()?? 12/14/2023 00:47 Anion Gap 9 ()?? 12/14/2023 00:47 Glucose Level 184 mg/dL (High)?? 12/14/2023 00:47 Glucose, POC 134 mg/dL (High)?? 12/14/2023 06:05 BUN 23 mg/dL (High)?? 12/14/2023 00:47 Creatinine-Blood 0.9 mg/dL ()?? 12/14/2023 00:47 Estimated GFR Creatinine 77 ML/MIN/1.73 M2 ()?? 12/14/2023 00:47 Calcium 9.3 mg/dL ()?? 12/14/2023 00:47 Protein, Total 5.7 Gm/dL (Low)?? 12/14/2023 00:47 Albumin 3.7 Gm/dL ()?? 12/14/2023 00:47 Alkaline Phosphatase 59 units/L ()?? 12/14/2023 00:47 AST (SGOT) 21 units/L ()?? 12/14/2023 00:47 ALT (SGPT) 24 units/L ()?? 12/14/2023 00:47 Bilirubin, Total 0.2 mg/dL ()?? 12/14/2023 00:47 Bilirubin, Direct <0.2 mg/dL ()?? 12/14/2023 00:47 Bilirubin, Indirect Direct bilirubin is less than the measureable limit. Therefore, indirect mg/dL ()?? 12/14/2023 00:47 ? 25??minutes spent on discharge Patient Care team information Care Team Personnel Name: Lawrence Cano RN Position: [facility] RN Member Role: Primary Care Nurse Name: Nayana Bradshaw RN Position: [facility] RN Member Role: Primary Care Nurse Name: Ana María Espino RN Position: [facility] RN Member Role: Primary Care Nurse Name: Raji Somers RN Position: [facility] RN Member Role: Primary Care Nurse Name: Ulisses Barboza Position: [facility] RN Member Role: Primary Care Nurse Name: Dahiana Thrasher RN Position: [facility] ED RN W/OE and Tasks Member Role: Primary Care Nurse Name: Shira Ewing RN Position: [facility] RN Member Role: Primary Care Nurse Name: Rick Chi RN Position: [facility] RN Member Role: Primary Care Nurse Name: Maggi Fagan RN Position: [facility] ED RN W/OE and Tasks Member Role: Primary Care Nurse Name: Marlo Davies RN Position: [facility] RN Member Role: Primary Care Nurse Name: Lawson Rivers RN Position: [facility] RN Supv Member Role: Primary Care Nurse Name: Mark Mccullough RN Position: [facility] RN Member Role: Primary Care Nurse Name: Sidney Jackson MD Position: [facility] Physician - Primary Care Member Role: PCP Address: Address: [address] [place] [address], [address] [place] [address]- Name: Ana María Ugarte RN Position: [facility] RN Member Role: Primary Care Nurse Name: Nayana Reyes RN Position: [facility] RN Member Role: Primary Care Nurse Name: Capo Sales RN Position: [facility] RN Member Role: Primary Care Nurse Name: Anna Cespedes RN Position: [facility] RN Member Role: Primary Care Nurse Name: Gabino Cespedes RN Position: [facility] RN Member Role: Primary Care Nurse Care Team Related Persons Name: MARK CLAY Address: [address] [place] [id number] Name: RENÉ LOPEZ Name: DORIS KNUTSON Address: home [address] [place] [address]
--- OUTSIDE RECORDS SUMMARY | 2024-02-24 19:47 | XMS_ITS | Continuity of Care Document ---
Author Organization [facility] Address [address], [address] [place] [address]- Care Team Providers Care Hearse Driver Name Role Phone Manuel PADILLA, Sidney Trejo Primary Care Physician Encounter [facility] Date(s): 03/13/22 - 04/30/22 [facility] [address] [place] [address]- Attending Physician: Tracey Meza MD Admitting Physician: Tracey Meza MD Referring Physician: Sidney Jackson MD Allergies, Adverse Reactions, Alerts Substance Reaction Severity Status ibuprofen Active haloperidol Active lithium Active penicillin Active Benadryl Active Bactrim DS 1 acute renal failure Active Apples Active Grapes Active 1had episodes of acute renal failure during admission to [facility] -- resolved both times off [...] 1 Refills, Maintenance, 04/11/22 22:53:00 EDT, Tablet, [facility], Partial fill upon patient request if the prescription is for a schedule II opioid drug., 165kahlil, 04/11/22 12:5... Start Date: 04/11/22 Status: Ordered benztropine 0.5 mg oral tablet 0.5 mg, 1, tablet, By Mouth, 2 times a day, # 60 tablet, Refills 1, Tot. Refills 1, Maintenance, 04/11/22 22:54:00 EDT, Route to Pharmacy Electronically, [facility], Partial fill upon patient request if the prescription is for... Start Date: 04/11/22 Status: Ordered clozapine 100 mg oral tablet 3 tablet = 300 mg, By Mouth, Daily at bedtime, # 90 tablet, 1 Refills, Maintenance, 04/11/22 22:54:00 EDT, [facility], Partial fill upon patient request if the prescription is for a schedule II opioid drug., 165kahlil, 04/11/22... Start Date: 04/11/22 Status: Ordered DDAVP 0.1 mg oral tablet 2 tablet = 0.2 mg, By Mouth, Daily at bedtime, # 60 tablet, 1 Refills, Maintenance, 04/11/22 22:54:00 EDT, Tablet, [facility], Partial fill upon patient request if the prescription is for a schedule II opioid drug., 165, cm, 0... Start Date: 04/11/22 Status: Ordered divalproex sodium 500 mg oral tablet, extended release 3 tablet = 1,500 mg, By Mouth, Daily at bedtime, # 90 tablet, 1 Refills, Maintenance, 04/11/22 22:54:00 EDT, ER Tablet, [facility], Partial fill upon patient request if the prescription is for a schedule II opioid drug., 165,... Start Date: 04/11/22 Status: Ordered docusate sodium 100 mg oral tablet = 100 mg, By Mouth, 2 times a day, # 60 tablet, 1 Refills, Maintenance, 04/11/22 22:54:00 EDT, Tablet, [facility], Partial fill upon patient request if the prescription is for a schedule II opioid drug., 165, cm, 04/11/22 12:5... Start Date: 04/11/22 Status: Ordered fluPHENAZine 2.5 mg oral tablet 1 tablet = 2.5 mg, By Mouth, 3 times a day, PRN Agitation, # 90 tablet, 1 Refills, Maintenance, 04/11/22 22:55:00 EDT, [facility], Partial fill upon patient request if the prescription is for a schedule II opioid drug., 165, c... Start Date: 04/11/22 Status: Ordered fluPHENAZine decanoate 25 mg/mL injectable solution = 25 mg, Intramuscular, Every 21 days, next due: 04/19/2022, # 1 kit, 1 Refills, Maintenance, 04/11/22 22:55:00 EDT, [facility], Partial fill upon patient request if the prescription is for a schedule II opioid drug., 165, cm,... Start Date: 04/11/22 Status: Ordered glycopyrrolate 1 mg oral tablet 1 mg, 1, tablet, By Mouth, Daily at bedtime, # 30 tablet, Refills 1, Tot. Refills 1, Maintenance, 04/11/22 22:52:00 EDT, Route to Pharmacy Electronically, [facility], Partialfill upon patient request if the prescription is fo... Start Date: 04/11/22 Status: Ordered hydrocortisone 1% topical lotion See Instructions, Topically Daily, # 60 mL, 0 Refills, Maintenance, 04/11/22 22:53:00 EDT, Lotion, [facility], Partial fill upon patient request if the prescription is for a schedule II opioid drug., Topically Daily, 165, cm,... Start Date: 04/11/22 Status: Ordered insulin glargine 100 u/ml subcutaneous solution = 35 units, Subcutaneous Injection, Daily at bedtime, # 10 mL, 1 Refills, Maintenance, 04/11/22 22:55:00 EDT, Injection, [facility], Partial fill upon patient request if [...] 1 Refills, Maintenance, 04/11/22 22:55:00 EDT, Tablet, [facility]-, Partial fill upon patient request if the prescription is for a schedule II opioid drug., 165, cm, 07... Start Date: 04/11/22 Status: Ordered Metamucil 3.4 gm/5.2 gm oral powder for reconstitution = 1.7 Gm, By Mouth, Daily, PRN as needed for constipation, # 570 Gm, 1 Refills, Maintenance, 04/11/22 22:56:00 EDT, REC Powder, [facility]- , Partial fill upon patient request if the prescription is for a schedule II opioid drug... Start Date: 04/11/22 Status: Ordered metFORMIN 500 mg oral tablet 1 each = 500 mg, By Mouth, 2 times a day, # 60 tablet, 1 Refills, Maintenance, 11/30/21 21:00:00 EDT, Tablet, [facility], Partial fill upon patient request if [...] Refills, Maintenance, 04/11/22 22:52:00 EDT, ER Tablet, [facility], Partial fill upon patient request if [...]
--- OUTSIDE RECORDS SUMMARY | 2024-02-24 19:47 | XMS_ITS | Continuity of Care Document ---
Author Organization [facility] Franky arvizu [facility] Address [address], [address] [place] [address]- Care Team Providers Care Interventional Tech Name Role Phone Manuel PADILLA, Sidney Trejo Primary Care Physician [phone] [place] [facility] [place]/12/22 [facility] Franky Jims [facility] [address], [address] [place] [address]- Attending Physician: Tracey Meza MD Admitting Physician: Tracey Meza MD Referring Physician: Sidney Jackson MD Allergies, Adverse Reactions, Alerts Substance Reaction Severity Status ibuprofen Active haloperidol Active lithium Active penicillin Active Benadryl Active Bactrim DS 1 acute renal failure Active Apples Active Grapes Active 1had episodes of acute renal failure during admission to [facility] -- resolved both times off Bactrim [...] 1 Refills, Maintenance, 04/11/22 22:53:00 EDT, Tablet, [facility], Partial fill upon patient request if the prescription is for a schedule II opioid drug., 165, cm, 04/11/22 12:5... Start Date: 04/11/22 Status: Ordered benztropine 0.5 mg oral tablet 0.5 mg, 1, tablet, By Mouth, 2 times a day, # 60 tablet, Refills 1, Tot. Refills 1, Maintenance, 04/11/22 22:54:00 EDT, Route to Pharmacy Electronically, [facility], Partial fill upon patient request if the prescription is for... Start Date: 04/11/22 Status: Ordered clozapine 100 mg oral tablet 3 tablet = 300 mg, By Mouth, Daily at bedtime, # 90 tablet, 1 Refills, Maintenance, 04/11/22 22:54:00 EDT, [facility], Partial fill upon patient request if the prescription is for a schedule II opioid drug., 165kahlil, 04/11/22... Start Date: 04/11/22 Status: Ordered DDAVP 0.1 mg oral tablet 2 tablet = 0.2 mg, By Mouth, Daily at bedtime, # 60 tablet, 1 Refills, Maintenance, 04/11/22 22:54:00 EDT, Tablet, [facility], Partial fill upon patient request if the prescription is for a schedule II opioid drug., 165, cm, 0... Start Date: 04/11/22 Status: Ordered divalproex sodium 500 mg oral tablet, extended release 3 tablet = 1,500 mg, By Mouth, Daily at bedtime, # 90 tablet, 1 Refills, Maintenance, 04/11/22 22:54:00 EDT, ER Tablet, [facility], Partial fill upon patient request if the prescription is for a schedule II opioid drug., 165,... Start Date: 04/11/22 Status: Ordered docusate sodium 100 mg oral tablet = 100 mg, By Mouth, 2 times a day, # 60 tablet, 1 Refills, Maintenance, 04/11/22 22:54:00 EDT, Tablet, [facility], Partial fill upon patient request if the prescription is for a schedule II opioid drug., 165, cm, 04/11/22 12:5... Start Date: 04/11/22 Status: Ordered fluPHENAZine 2.5 mg oral tablet 1 tablet = 2.5 mg, By Mouth, 3 times a day, PRN Agitation, # 90 tablet, 1 Refills, Maintenance, 04/11/22 22:55:00 EDT, [facility], Partial fill upon patient request if the prescription is for a schedule II opioid drug., 165, c... Start Date: 04/11/22 Status: Ordered fluPHENAZine decanoate 25 mg/mL injectable solution = 25 mg, Intramuscular, Every 21 days, next due: 04/19/2022, # 1 kit, 1 Refills, Maintenance, 04/11/22 22:55:00 EDT, [facility], Partial fill upon patient request if the prescription is for a schedule II opioid drug., 165, cm,... Start Date: 04/11/22 Status: Ordered glycopyrrolate 1 mg oral tablet 1 mg, 1, tablet, By Mouth, Daily at bedtime, # 30 tablet, Refills 1, Tot. Refills 1, Maintenance, 04/11/22 22:52:00 EDT, Route to Pharmacy Electronically, [facility], Partialfill upon patient request if the prescription is fo... Start Date: 04/11/22 Status: Ordered hydrocortisone 1% topical lotion See Instructions, Topically Daily, # 60 mL, 0 Refills, Maintenance, 04/11/22 22:53:00 EDT, Lotion, [facility], Partial fill upon patient request if the prescription is for a schedule II opioid drug., Topically Daily, 165, cm,... Start Date: 04/11/22 Status: Ordered insulin glargine 100 u/ml subcutaneous solution = 35 units, Subcutaneous Injection, Daily at bedtime, # 10 mL, 1 Refills, Maintenance, 04/11/22 22:55:00 EDT, Injection, [facility], Partial fill upon patient request [...] 1 Refills, Maintenance, 04/11/22 22:55:00 EDT, Tablet, [facility]-, Partial fill upon patient request if the prescription is for a schedule II opioid drug., 165, cm, 07... Start Date: 04/11/22 Status: Ordered Metamucil 3.4 gm/5.2 gm oral powder for reconstitution = 1.7 Gm, By Mouth, Daily, PRN as needed for constipation, # 570 Gm, 1 Refills, Maintenance, 04/11/22 22:56:00 EDT, REC Powder, [facility]- , Partial fill upon patient request if the prescription is for a schedule II opioid drug... Start Date: 04/11/22 Status: Ordered metFORMIN 500 mg oral tablet 1 each = 500 mg, By Mouth, 2 times a day, # 60 tablet, 1 Refills, Maintenance, 11/30/21 21:00:00 EDT, Tablet, [facility]-, Partial fill upon patient request if [...] Refills, Maintenance, 04/11/22 22:52:00 EDT, ER Tablet, [facility], Partial fill upon patient request if [...]
--- OUTSIDE RECORDS SUMMARY | 2024-02-24 19:47 | XMS_ITS | Continuity of Care Document ---
Author Organization [facility] Address [address] [place] [address]- Care Team Providers Care Jewel Supervisor Name Role Phone Sourav FRANZ, Ella Carmona Primary Care Physician Encounter [facility] Date(s): 02/10/24 - 02/10/[address] [address]- Discharge Disposition: A-D/C Home Attending Physician: Flex PADILLA, Valentine Sosa Admitting Physician: Valentine Mccord MD Referring Physician: Not on Staff, Referring MD Allergies, Adverse Reactions, Alerts Substance Reaction Severity Status codeine Active ibuprofen Active haloperidol Active lithium Active penicillin Active Benadryl Active Bactrim DS 1 acute renal failure Active Apples Active Grapes Active 1had episodes of acute renal failure during admission to [facility] -- resolved both times off Bactrim [...] tablet, 0 Refills, Maintenance, 12/31/23 8:14:00EDT, Tablet, [facility], Partial fill upon patient request if the prescription is for a schedule II opioid drug., 165, cm, 12/30/23 20:24:00... Start Date: 12/31/23 Stop Date: 01/30/24 Status: Ordered benztropine 0.5 mg oral tablet 0.5 mg, 1, tablet, By Mouth, 2 times a day, # 60 tablet, Refills 0, Tot. Refills 0, Maintenance, 12/31/23 8:15:00 EDT, Route to Pharmacy Electronically, [facility], Partial fill upon patient request if the prescription is for a schedule II o... Start Date: 12/31/23 Stop Date: 01/30/24 Status: Ordered cephalexin monohydrate 500 mg oral capsule 1 capsule = 500 mg, By Mouth, 4 times a day, for 10 days, # 40 capsule, 0 Refills, Acute 02/17/24 14:12:00 EDT, 02/07/24 14:12:00 EDT, Capsule, [facility], Partial fill upon patient requestif the prescription is for a schedule II opioid kristi... Start Date: 02/07/24 Stop Date: 02/17/24 Status: Ordered cetirizine 5 mg oral tablet 1 tablet = 5 mg, By Mouth, Daily at bedtime, PRN Other, allergy symptoms, # 30 tablet, 0 Refills, Maintenance, 12/31/23 8:15:00 EDT, Tablet, [facility], Partial fill upon patient request ifthe prescription is for a schedule II opioid drug.,... Start Date: 12/31/23 Stop Date: 01/30/24 Status: Ordered cholecalciferol 1000 intl units oral tablet 1 tablet = 25 mcg, By Mouth, Daily, # 30 tablet, 0 Refills, Maintenance, 12/31/23 8:15:00 EDT, Tablet, [facility], Partial fill upon patient request if the prescription is for a schedule IIopioid drug., 165, cm, 12/30/23 20:24:00 EDT, Heigh... Start Date: 12/31/23 Stop Date: 01/30/24 Status: Ordered clozapine 100 mg oral tablet See Instructions, 250 (2.5 tablets) mg By Mouth Daily at bedtime 30 days, # 75 tablet, 0 Refills, Maintenance, 12/31/23 8:16:00 EDT, Tablet, [facility], Partial fill upon patient request ifthe prescription is for a schedule II opioid drug.,... Start Date: 12/31/23 Status: Ordered divalproex sodium 500 mg oral enteric coated tablet 3 tablet = 1,500 mg, By Mouth, Daily at bedtime, # 90 tablet, 0 Refills, Maintenance, 12/31/23 8:17:00 EDT, Tablet, [facility], Partial fill upon patient request if the prescription is for a schedule II opioid drug., 165, cm, 12/30/23 20:24:... Start Date: 12/31/23 Stop Date: 01/30/24 Status: Ordered docusate sodium 100 mg oral capsule 100 mg, 1, capsule, By Mouth, 2 times a day, PRN, # 60 capsule, Refills 0, Tot. Refills 0, Maintenance, Constipation, 12/31/23 8:18:00 EDT, Route to Pharmacy Electronically, [facility], Partial fill upon patient request if the prescription i... Start Date: 12/31/23 Stop Date: 01/30/24 Status: Ordered FLUoxetine 20 mg oral capsule 20 mg, 1, capsule, By Mouth, Daily, # 30 capsule, Refills 0, Tot. Refills 0, Maintenance, 12/31/23 8:18:00 EDT, Route to Pharmacy Electronically, [facility], Partial fill upon patient request if [...] 0 Refills, Maintenance, 12/31/23 8:19:00 EDT, Tablet, [facility], Partial fill upon patient request if [...] 02/12/24 14:12:00 EDT, 02/07/24 14:12:00 EDT, Ointment, [facility], Partial fill upon patient request if the prescription is for a schedule II opioid drug., 1 makayla... Start Date: 02/07/24 Stop Date: 02/12/24 Status: Ordered traZODone 50 mg oral tablet 50 mg, 1, tablet, By Mouth, Daily at bedtime, PRN, # 30 tablet, Refills 0, Tot. Refills 0, Maintenance, Sleep, 12/31/23 8:20:00 EDT, Route to Pharmacy Electronically, [facility], Partial fill upon patient request if [...] oldest [Reference Range]: 1 2 3 Height 168 cm (02/10/24 3:01 AM) Weight 90 kg (02/10/24 3:01 AM) Oxygen Saturation [94-100 %] 100 % (02/10/24 2:18 PM) 100 % (02/10/24 11:43 AM) 100 % (02/10/24 10:00 AM) Pulse Rate [55-90 bpm] 90 bpm (02/10/24 2:18 PM) 84 bpm (02/10/24 11:43 AM) 88 bpm (02/10/24 10:00 AM) Blood Pressure [90-138/55-84 mm Hg] 115/92mm Hg (02/10/24 2:18 PM) 106/75mm Hg (02/10/24 11:43 AM) 133/100mm Hg (02/10/24 10:00 AM) Respiratory Rate [16-30 br/min] 24 br/min (02/10/24 2:18 PM) 12 br/min *L* (02/10/24 11:43 AM) 14 br/min *L* (02/10/24 10:00 AM) Temperature [96.8-100.4 DegF] 97.6 DegF (02/10/24 10:00 AM) 98 DegF (02/10/24 7:03 AM) 97.4 DegF (02/10/24 3:01 AM) Mode of Delivery (Oxygen) Room air (02/10/24 2:18 PM) Room air (02/10/24 11:43 AM) Room air (02/10/24 10:00 AM) Blood pressure sites Arm, left (02/10/24 2:18 PM) Arm, left (02/10/24 11:43 AM) Arm, left (02/10/24 10:00 AM) Temperature Route Axillary (02/10/24 10:00 AM) Oral (02/10/24 7:03 AM) Oral (02/10/24 3:01 AM) Dry Weight 90 kg (02/10/24 3:01 AM) Social History Social History Type Response Smoking Status Former smoker, quit more than 30 days ago entered on: 09/27/20 Sex Patient Care team information Care Team Personnel Name: Alexandra Whipple RN Position: [facility] RN Member Role: Primary Care Nurse Name: Lawrence Cano RN Position: [facility] RN Member Role: Primary Care Nurse Name: Ella Benjamin NP Position: Reference Physician Member Role: PCP Address: Address: [address] [place] [address] [address] [facility] [facility] [place], [place] [address] Name: Nayana Bradshaw RN Position: [facility] RN Member Role: Primary Care Nurse Name: Ana María Espino RN Position: S RN Member Role: Primary Care Nurse Name: Raji Somers RN Position: S RN Member Role: Primary Care Nurse Name: Ulisses Barboza Position: S RN Member Role: Primary Care Nurse Name: Dahiana Thrasher RN Position: [facility] ED RN W/OE and Tasks Member Role: Primary Care Nurse Name: Shira Ewing RN Position: [facility] RN Member Role: Primary Care Nurse Name: Rick Chi RN Position: [facility] RN Member Role: Primary Care Nurse Name: Maggi Fagan RN Position: [facility] ED RN W/OE and Tasks Member Role: Primary Care Nurse Name: Marlo Davies RN Position: [facility] RN Member Role: Primary Care Nurse Name: Moni Rodriguez Position: [facility] RN Member Role: Primary Care Nurse Name: Lawson Rivers RN Position: [facility] RN Supv Member Role: Primary Care Nurse Name: Mark Mccullough RN Position: [facility] RN Member Role: Primary Care Nurse Name: Ana María Ugarte RN Position: [facility] RN Member Role: Primary Care Nurse Name: Nayana Reyes RN Position: [facility] RN Member Role: Primary Care Nurse Name: Capo Sales RN Position: [facility] RN Member Role: Primary Care Nurse Name: Yenni Medellin RN Position: [facility] RN Member Role: Primary Care Nurse Name: Anna Cespedes RN Position: [facility] RN Member Role: Primary Care Nurse Name: Gabino Cespedes RN Position: [facility] RN Member Role: Primary Care Nurse Care Team Related Persons Name: MARK CLAY Address: home [address] [place] [address] [facility] Name: DORIS KNUTSON Address: home [address] [place] [address]
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
[2024-02-24 22:38] VITALS: BP 110/81; PULSE 83; RESP 18; TEMP 36.5; O2SAT 97
[2024-02-25 01:24] VITALS: BP 111/69; PULSE 84; RESP 17; TEMP 37; O2SAT 100
[2024-02-25 01:57] VITALS: BP 111/69; PULSE 84; RESP 17; TEMP 37; O2SAT 100
== END 2024-02-25 01:59 ==
PROVIDERS: Emergency Provider Internal Medicine
DX: T25.231A Burn of second degree of right toe(s) (nail), initial encounter (principal); I10 Essential (primary) hypertension; E11.9 Type 2 diabetes mellitus without complications; X12.XXXA Contact with other hot fluids, initial encounter; Y93.9 Activity, unspecified; Y92.9 Unspecified place or not applicable; Y99.9 Unspecified external cause status
CPT/HCPCS: 99283